=== PATIENT | male | born 1940 | race Caucasian/White ===

== ENCOUNTER 2018-03-29 10:18 | Emergency (ER) | payer MEDICARE, OTHER ==
[2018-03-29 10:58] VITALS: BMI 29.2
--- NOTE | 2018-03-29 11:03 | PDOC ---
History of Present Illness - General Chief Complaint: Wound Stated Complaint: Abscess Boil Time Seen by Provider: 03/29/18 10:59 History Source: Patient Exam Limitations: No Limitations - History of Present Illness Initial Comments: 77 yo m w a hx of Multiple Myeloma, parkinsonian features, urethral strictures, chronic renal failure and HTN presents to the ER [facility] from [facility] because of left gluteal buttock pain. He states that he has had an area of redness and swelling for the past 6 months but he came to the ER today because his PCP - Dr. Solano sent him here to have his abscess incised and drained. He states that he used to have more pain but now his pain has improved. He denies any fevers, chills, chest pain, SOB, diarrhea, constipation, headache , nausea, vomiting, blurry vision, abdominal pain, arm or leg pain, numbness, weakness, tingling or recent travel. PCP: Dr. Solano Oncologist: Dr. Ashraf PSH: None reported Social Hx: Smokes a few cigarettes per day, use to smoke more Allergies: NKA, NKDA Past History - Past Medical History Allergies/Adverse Reactions: Allergies Allergy/AdvReac Type Severity Reaction Status Date / Time No Known Allergies Allergy Verified 01/22/16 12:30 Home Medications: Ambulatory Orders Aspirin [Aspirin EC] 81 mg PO DAILY 01/16/16 Omeprazole 10 mg PO DAILY 01/16/16 Pramipexole Dihydrochloride [Mirapex -] 0.25 mg PO TID 01/22/16 Docusate Sodium [Colace -] 100 mg PO BID PRN #28 capsule 01/28/16 Acetaminophen 650 mg PO QID PRN 03/29/18 Amlodipine Besylate [Norvasc -] 10 mg PO DAILY 03/29/18 Carbidopa/Levodopa *Cr* 50/200 [Sinemet *Cr* 50/200 -] 1 combo PO TID 03/29/18 Clindamycin [Cleocin -] 450 mg PO Q6HPO #28 capsule 03/29/18 Cyanocobalamin Vit B-12 Inj. [Redisol] 1,000 mcg IM MONTHLY 03/29/18 Furosemide [Lasix -] 20 mg PO DAILY 03/29/18 Lenalidomide [Revlimid] 10 mg PO ASDIR 03/29/18 Multivitamin,Ther and Minerals [Vitamin and Minerals] 1 each PO DAILY 03/29/18 Rivastigmine Tartrate [Rivastigmine] 3 mg PO TID 03/29/18 Spironolactone [Aldactone] 25 mg PO DAILY 03/29/18 Valacyclovir HCl [Valtrex] 500 mg PO Q48H 03/29/18 Anemia: No Asthma: No Cancer: Yes (Multiple myeloma) Cardiac Disorders: No CVA: No COPD: Yes (?-ON INHALER-SMOKES 1 PPD) CHF: No Dementia: No Diabetes: No GI Disorders: No Disorders: No HTN: Yes (DX 05/2013) Hypercholesterolemia: No Liver Disease: No Seizures: No Thyroid Disease: No - Surgical History Abdominal Surgery: No Appendectomy: No Cardiac Surgery: No Cholecystectomy: No Lung Surgery: No Neurologic Surgery: No Orthopedic Surgery: No - Suicide/Smoking/Psychosocial Hx Smoking History: Never smoked Have you smoked in the past 12 months: No Number of Cigarettes Smoked Daily: 20 Information on smoking cessation initiated: No 'Breaking Loose' booklet given: 10/11/14 Hx Alcohol Use: No Drug/Substance Use Hx: No Substance Use Type: None Hx Substance Use Treatment: No Review of Systems - Review of Systems Able to Perform ROS?: Yes Comments:: CONSTITUTIONAL: Absent: fever, no chills, no fatigue EYES: Absent: visual changes ENT: Absent: ear pain, no sore throat CARDIOVASCULAR: Absent: chest pain, no palpitations RESPIRATORY: Absent: cough, no SOB GI: Absent: abdominal pain, no nausea, no vomiting, no constipation, no diarrhea GENITOURINARY: Absent: dysuria, no frequency, no hematuria MUSKULOSKELETAL: Absent: back pain, no arthralgia, no myalgia SKIN: Present: rash NEURO: Absent: headache *Physical Exam - Vital Signs Last Vital Signs Temp Pulse Resp BP Pulse Ox 97 F L 120 H 18 123/90 100 03/29/18 10:20 03/29/18 10:20 03/29/18 10:20 03/29/18 10:20 03/29/18 10:20 - Physical Exam Comments: GENERAL: Well-appearing, well-nourished. No apparent distress. HEENT: Normocephalic, atraumatic. PERRL, EOM intact. CARDIOVASCULAR: Normal S1, S2. Tachycardic rate and regular rhythm. PULMONARY: No evidence of respiratory distress. Lungs clear to auscultation bilaterally. No wheezing, rales or rhonchi. ABDOMEN: Soft, non-distended, non-tender. EXTREMITIES: Normal ROM in all four extremities. No gross deformities. BUTTOCKS: There is a 4x3 cm erythematous area on the left gluteal region that is TTP that is associated with induration, swelling, and fluctuance. SKIN: Warm, dry. No rash other than buttocks NEUROLOGICAL: No focal neurological deficits. Moderate Sedation - Procedure Monitoring Vital Signs: Procedure Monitoring Vital Signs Temperature 97 F L 03/29/18 10:20 Pulse Rate 120 H 03/29/18 10:20 Respiratory Rate 18 03/29/18 10:20 Blood Pressure 123/90 03/29/18 10:20 O2 Sat by Pulse Oximetry (%) 100 03/29/18 10:20 ED Treatment Course - LABORATORY CBC & Chemistry Diagram: 03/29/18 11:43 03/29/18 11:32 Medical Decision Making - Medical Decision Making 77 yo m w a hx of Multiple Myeloma, parkinsonian features, urethral strictures, chronic renal failure and HTN presents [facility] the ER [facility] from [facility] because of left gluteal buttock pain. He states that he has had an area of redness and swelling for the past 6 months but he came to the ER today because his PCP - Dr. Solano sent him here to have his abscess incised and drained. He states that he used to have more pain but now his pain has improved. VS: Tachycardic to 120, otherwise WNL DDx IBNLT: cellulitis, abscess, fistula, sepsis. Plan: ED adult sepsis workup -labs, urine, wound culture, I&D, Pelvis CT w contrast, re-assess - I spoke with Dr. Solano who simply wanted his abscess drained and then sent back to [facility]. Giving patient vancomycin in the ER for his cellulitis. - Will continue with clindamycin once he is out of the ER. I drained the abscess on his gluteal region of his butt and noticed that fecal matter was coming out. - Will obtain a pelvis CT with contrast to assess for fistula CTAP results: In comparison to a prior CT study of 01/25/2016 interval development of an approximately 3 x 2 cm thick-walled subcutaneous structure is seen suggestive of an abscess along the left buttock inferiorly. Within this structure is a small focus of air/gas. Adjacent subcutaneous edema is visualized. Within the adjacent subcutaneous edema more medially two additional punctate foci of air /gas are visualized. No definite fistulous tract is seen. Will DC patient with Abx, send back to [facility] and recommend a wound check in the next 48 hours. *DC/Admit/Observation/Transfer Diagnosis at time of Disposition: Abscess, Cellulitis - Discharge Dispostion Disposition: HOME Condition at time of disposition: Improved Decision to Admit order: No - Referrals Referrals: Alexander Solano MD [Primary Care Provider] - - Patient Instructions Printed Discharge Instructions: DI for Cellulitis -- Adult, DI for Anal Abscess Additional Instructions: You came into the ER with pain on your bottom. We did an incision and drainage procedure to remove the pus. We are sending an antibiotic - clindamycin - to your pharmacy for you to take for the next seven days. Please make sure to go and pick it up. It is very important for you to have your wound checked in the next 48 hours to make sure it is healing well. Come back to the ER if your pain worsens, you get a fever, have severe pain, or have any other new or worsening concerns. Thank you for coming to the [facility] ER. We hope you feel better soon! Print Language: SLOVENIAN - Post Discharge Activity
[2018-03-29 12:20] LABS: BASO % 1.4 % (0-2.0); EOS % 1.4 % (0-4.5); HEMOGLOBIN 10.6 GM/dL (11.7-16.9); LYMPH % 11.7 % (8-40); MCH 33.1 pg (25.7-33.7); MCHC 34.3 g/dl (32.0-35.9); MEAN CELL VOLUME 96.5 fl (80-96); MEAN PLT VOLUME 8.4 fl (7.5-11.1); MONO % 16.9 % (3.8-10.2); NEUT % 68.6 % (42.8-82.8); PLATELET COUNT 170 K/MM3 (134-434); RBC 3.21 M/mm3 (4.00-5.60); RDW 18.7 % (11.9-15.9); WHITE BLOOD COUNT 3.9 K/mm3 (4.0-10.0)
[2018-03-29 12:36] LABS: URINE APPEARANCE CLEAR; URINE BILIRUBIN NEGATIVE (<2.0 mg/dL); URINE COLOR LTYELLOW; URINE GLUCOSE (UA) NEGATIVE (NEGATIVE); URINE KETONE NEGATIVE (NEGATIVE); URINE LEUK ESTERASE 1+ (NEGATIVE); URINE NITRITE NEGATIVE (NEGATIVE); URINE PROTEIN NEGATIVE (NEGATIVE); URINE UROBILINOGEN NEGATIVE mg/dL (0.2-1.0)
[2018-03-29 12:36] LABS: ALBUMIN 2.9 g/dl (3.4-5.0); ALK PHOS 129 U/L (45-117); ANION GAP 5 MMOL/L (8-16); BILIRUBIN,TOTAL 0.3 mg/dL (0.2-1); BLOOD UREA NITROGEN 25 mg/dL (7-18); CALCIUM 8.5 mg/dL (8.5-10.1); CHLORIDE 102 mmol/L (98-107); CO2 28 mmol/L (21-32); CREATININE 1.8 mg/dL (0.55-1.3); GLUCOSE,RANDOM 103 mg/dL (74-106); POTASSIUM 4.9 mmol/L (3.5-5.1); SGOT/AST 11 U/L (15-37); SGPT/ALT 8 U/L (13-61); SODIUM 135 mmol/L (136-145); TOT PROT 6.5 g/dl (6.4-8.2)
[2018-03-29 12:41] LABS: INR 1.03 (0.83-1.09); PROTHROMBIN TIME (PATIENT) 12.1 SEC (9.7-13.0)
[2018-03-29 12:44] LABS: ACTIVATED PTT 28.2 SECONDS (25.2-36.5)
[2018-03-29] MEDS ORDERED: VANCOMYCIN 1,000 MG in DEXTROSE 5%-WATER - 250 ML IVPB ONE (12:53)
[2018-03-29] MEDS ORDERED: VANCOMYCIN 1 GRAM (PRE-DOCKED) 1,000 MG/250 ML BAG IVPB ONE (12:56)
[2018-03-29] MEDS ORDERED: LIDOCAINE HCL 2% (20ML MULTI-DOSE VIAL) NR ONE (12:56)
[2018-03-29] MEDS ORDERED: LIDOCAINE HCL 2% (50ML VIAL) SQ ONE (12:56)
[2018-03-29 12:57] LABS: EPI CELLS RARE /HPF (FEW); GRANULAR CASTS 7 /lpf; URINE MUCUS RARE
--- NOTE | 2018-03-29 12:58 | PDOC ---
Attending Attestation - Resident Resident Name: Guillaume Worthy - ED Attending Attestation I have performed the following: I have examined & evaluated the patient, The case was reviewed & discussed with the resident, I agree w/resident's findings & plan - HPI HPI: 03/29/18 12:54 77-year-old male from [facility] referred by Dr. Viveros for incision and drainage of left gluteal abscess/cellulitis. Patient has had a small skin lesion there for some time, more recently with increased discomfort. No systemic symptoms of fevers or chills, patient has not noted any discharge. - Physicial Exam PE: 03/29/18 12:54 Afebrile, triage heart rate noted currently 70 on examination Exam is within normal limits, patient is well-appearing Left gluteal superficial abscess in the mid buttock approximately 8 cm of induration with central 3-4 cm of fluctuance with active foul-smelling purulent drainage, no bleeding. Surrounding rim of cellulitis, the lesion is mobile without underlying palpable mass or deformity. - Medical Decision Making 03/29/18 12:56 77-year-old male from [facility] with left buttock abscess and cellulitis, no evidence of SIRS or sepsis. Check labs Dose of IV vancomycin Incision and drainage of abscess Discussed with Dr. Solano, who agrees with plan for I&D and transfer back to [facility] on antibiotics. Heart Score/ECG Review #1 ECG reviewed & interpreted by me at: 12:11 General ECG Interpretation: Sinus Rhythm, Normal Rate (65), Normal Intervals ( qtc 434), No acute ischemic changes
[2018-03-29] MEDS ORDERED: SODIUM CHLORIDE 0.9% 500 ML INFUS.BAG IV ONE (13:50)
--- NOTE | 2018-03-29 14:36 | EKG ---
Test Reason : Blood Pressure : / mmHG Vent. Rate : 065 BPM Atrial Rate : 065 BPM P-R Int : 144 ms QRS Dur : 088 ms QT Int : 418 ms P-R-T Axes : 055 -06 064 degrees QTc Int : 434 ms SINUS RHYTHM WITH MARKED SINUS ARRHYTHMIA WITH PREMATURE VENTRICULAR COMPLEXES LOW VOLTAGE QRS CANNOT RULE OUT ANTERIOR INFARCT , AGE UNDETERMINED ABNORMAL ECG WHEN COMPARED WITH ECG OF 22-JAN-2016 16:02, PREMATURE VENTRICULAR COMPLEXES ARE NOW PRESENT PREMATURE ATRIAL COMPLEXES ARE NO LONGER PRESENT Confirmed by SHRUTHI FANG MD ([id number]) on 03/29/2018 2:36:15 PM Referred By: Confirmed By:SHRUTHI FANG MD
[2018-03-29 18:24] VITALS: BP 144/74; PULSE 88; TEMP 98
== END 2018-03-29 18:24 ==
LOC: JER 10:18
PROC: 0J990ZZ Drainage of Buttock Subcutaneous Tissue and Fascia, Open Approach (ICD-10-PCS; principal; 2018-03-29)
PROC: 3E03329 Introduction of Other Anti-infective into Peripheral Vein, Percutaneous Approach (ICD-10-PCS; 2018-03-29)
PROC: 3E013BZ Introduction of Anesthetic Agent into Subcutaneous Tissue, Percutaneous Approach (ICD-10-PCS; 2018-03-29)
DX: L02.31 Cutaneous abscess of buttock (principal); I12.9 Hypertensive chronic kidney disease with stage 1 through stage 4 chronic kidney disease, or unspecified chronic kidney disease; F17.210 Nicotine dependence, cigarettes, uncomplicated; N18.9 Chronic kidney disease, unspecified; G20 Parkinson's disease; Z85.79 Personal history of other malignant neoplasms of lymphoid, hematopoietic and related tissues; J44.9 Chronic obstructive pulmonary disease, unspecified
CPT/HCPCS: 10160; 36415; 72193-TC; 80053; 81003; 81015; 83605; 84484; 85025; 85610; 85730; 86850; 86900; 86901; 87040; 87070; 87076; 87077; 87086; 87205; 93005; 93010; 96365; 96366; 96372; 99284-25

== ENCOUNTER 2018-10-20 14:25 | Inpatient (IN) | payer OTHER ==
[2018-10-20 14:29] VITALS: BMI 22.7
--- NOTE | 2018-10-20 14:32 | PDOC ---
Rapid Medical Evaluation Chief Complaint: Abnormal Lab Results (Outside) Time Seen by Provider: 10/20/18 14:29 Medical Evaluation: Allergies Allergy/AdvReac Type Severity Reaction Status Date / Time No Known Allergies Allergy Verified 10/20/18 14:29 Vital Signs Temp Pulse Resp BP Pulse Ox 98.0 F 68 16 109/43 L 97 10/20/18 14:27 10/20/18 14:27 10/20/18 14:27 10/20/18 14:27 10/20/18 14:27 10/20/18 14:36 I have performed a brief in-person evaluation of this patient. The patient presents with a chief complaint of: Pertinent physical exam findings:stable and in NAD, non-focal I have ordered the following:labs, ekg The patient will proceed to the ED for further evaluation. Discharge Disposition - Referrals Referrals: Alexander Solano MD [Primary Care Provider] - - Patient Instructions - Post Discharge Activity
--- NOTE | 2018-10-20 16:28 | PDOC ---
History of Present Illness - General Chief Complaint: Abnormal Lab Results (Outside) Stated Complaint: SENT BY PCP Time Seen by Provider: 10/20/18 14:29 History Source: Patient Exam Limitations: No Limitations - History of Present Illness Initial Comments: 77 yo m w a hx of Multiple Myeloma, parkinsonian features, urethral strictures, chronic renal failure and HTN [facility] sent by his PCP - Dr. Solano to be admitted and evaluated for renal failure. Patient denies having any complaints. Denies having any pain or discomfort at the present time. He denies any fevers, chills, chest pain, SOB, diarrhea, constipation, headache , nausea, vomiting, blurry vision, abdominal pain, arm or leg pain, numbness, weakness, tingling or recent travel. PCP: Dr. Solano Oncologist: Dr. Ashraf PSH: None reported Social Hx: Smokes a few cigarettes per day, use to smoke more. [facility] resident, walks with a walker Allergies: NKA, NKDA Past History - Past Medical History Allergies/Adverse Reactions: Allergies Allergy/AdvReac Type Severity Reaction Status Date / Time No Known Allergies Allergy Verified 10/20/18 14:29 Home Medications: Ambulatory Orders Aspirin [Aspirin EC] 81 mg PO DAILY 01/16/16 Omeprazole 10 mg PO DAILY 01/16/16 Pramipexole Dihydrochloride [Mirapex -] 0.25 mg PO TID 01/22/16 Docusate Sodium [Colace -] 100 mg PO BID PRN #28 capsule 01/28/16 Acetaminophen 650 mg PO QID PRN 03/29/18 Amlodipine Besylate [Norvasc -] 10 mg PO DAILY 03/29/18 Carbidopa/Levodopa *Cr* 50/200 [Sinemet *Cr* 50/200 -] 1 combo PO TID 03/29/18 Clindamycin [Cleocin -] 450 mg PO Q6HPO #28 capsule 03/29/18 Cyanocobalamin Vit B-12 Inj. [Redisol] 1,000 mcg IM MONTHLY 03/29/18 Furosemide [Lasix -] 20 mg PO DAILY 03/29/18 Lenalidomide [Revlimid] 10 mg PO ASDIR 03/29/18 Multivitamin,Ther and Minerals [Vitamin and Minerals] 1 each PO DAILY 03/29/18 Rivastigmine Tartrate [Rivastigmine] 3 mg PO TID 03/29/18 Spironolactone [Aldactone] 25 mg PO DAILY 03/29/18 Valacyclovir HCl [Valtrex] 500 mg PO Q48H 03/29/18 Anemia: No Asthma: No Cancer: Yes (Multiple myeloma) Cardiac Disorders: No CVA: No COPD: Yes (?-ON INHALER-SMOKES 1 PPD) CHF: No Dementia: No Diabetes: No GI Disorders: No Disorders: No HTN: Yes (DX 05/2013) Hypercholesterolemia: No Liver Disease: No Seizures: No Thyroid Disease: No - Surgical History Abdominal Surgery: No Appendectomy: No Cardiac Surgery: No Cholecystectomy: No Lung Surgery: No Neurologic Surgery: No Orthopedic Surgery: No - Suicide/Smoking/Psychosocial Hx Smoking History: Current some day smoker Have you smoked in the past 12 months: No Number of Cigarettes Smoked Daily: 1 Information on smoking cessation initiated: No 'Breaking Loose' booklet given: 10/11/14 Hx Alcohol Use: No Drug/Substance Use Hx: No Substance Use Type: None Hx Substance Use Treatment: No Review of Systems - Review of Systems Able to Perform ROS?: Yes Comments:: CONSTITUTIONAL: Absent: fever, no chills, no fatigue EYES: Absent: visual changes ENT: Absent: ear pain, no sore throat CARDIOVASCULAR: Absent: chest pain, no palpitations RESPIRATORY: Absent: cough, no SOB GI: Absent: abdominal pain, no nausea, no vomiting, no constipation, no diarrhea GENITOURINARY: Absent: dysuria, no frequency, no hematuria MUSKULOSKELETAL: Absent: back pain, no arthralgia, no myalgia SKIN: Present: Rash NEURO: Absent: headache *Physical Exam - Vital Signs Last Vital Signs Temp Pulse Resp BP Pulse Ox 98.0 F 68 16 109/43 L 97 10/20/18 14:27 10/20/18 14:27 10/20/18 14:27 10/20/18 14:27 10/20/18 14:27 - Physical Exam Comments: GENERAL: Well-appearing, well-nourished. No apparent distress. HEENT: Normocephalic, atraumatic. PERRL, EOM intact. CARDIOVASCULAR: Normal S1, S2. Regular rate and rhythm. PULMONARY: There are bibasilar crackles. No evidence of respiratory distress. ABDOMEN: Soft, non-distended, non-tender. EXTREMITIES: limited ROM in lower extremities. No gross deformities. SKIN: There are multiple echymosis from prior blood draws. Warm, dry. NEUROLOGICAL: No focal neurological deficits. ED Treatment Course - LABORATORY CBC & Chemistry Diagram: 10/21/18 06:45 10/21/18 06:45 - RADIOLOGY Radiograph Interpretation: CXR: Chest: Cough A single view of the chest reveals well expanded lung christiansen with no sign of infiltrate or failure , prominent heart, sclerotic knob and prominent adelaida. After sharp. The soft tissues are intact. There are degenerative changes. An acute process is not seen. Renal US: Renal ultrasound Clinical information: acute kidney injury There is no hydronephrosis. The renal cortices bilaterally demonstrate increased echogenicity suggestive of medical nephropathy. There is mild diffuse bilateral renal cortical atrophy. The kidneys appear unremarkable in size each measuring approximately 10.4 cm in length. Apparent no obvious calculus or mass lesion is identified within the limitations of sonography. Incidental 2 cm right renal cortical cyst. There is no obvious perirenal fluid collection. Impression: No hydronephrosis is seen. Findings are noted suggestive of medical renal disease as discussed above. Medical Decision Making - Medical Decision Making 77 yo m w a hx of Multiple Myeloma, parkinsonian features, urethral strictures, chronic renal failure and HTN presents to the ER [facility] from the [facility] sent by his PCP - Dr. Solano to be admitted and evaluated for renal failure. Patient denies having any complaints. Denies having any pain or discomfort at the present time. He denies any fevers, chills, chest pain, SOB, diarrhea, constipation, headache , nausea, vomiting, blurry vision, abdominal pain, arm or leg pain, numbness, weakness, tingling or recent travel. Vital Signs Temp Pulse Resp BP Pulse Ox 98.0 F 68 16 109/43 L 97 10/20/18 14:27 10/20/18 14:27 10/20/18 14:27 10/20/18 14:27 10/20/18 14:27 - Hypotensive diastolicly DDx IBNLT: MM exacerbation, REMIGIO, electrolyte/metabolic disturbance, UTI/Pylo, drug toxicity MDM: Patient sent in by PCP for renal failure. Will obtain urine lytes to calculate FeNa, obtain renal consult, and admit to hospital. Plan: Labs, urine, cxr, renal consult, admit to hospital. Labs: Supports REMIGIO as well as elevated BUN, mildly low Sodium - FeNA: 0.5% - suggests pre-renal injury Urine: Shows patient has a UTI - Will treat with ceftriaxone CXR: Chest: Cough A single view of the chest reveals well expanded lung christiansen with no sign of infiltrate or failure , prominent heart, sclerotic knob and prominent adelaida. After sharp. The soft tissues are intact. There are degenerative changes. An acute process is not seen. Renal US: Renal ultrasound Clinical information: acute kidney injury There is no hydronephrosis. The renal cortices bilaterally demonstrate increased echogenicity suggestive of medical nephropathy. There is mild diffuse bilateral renal cortical atrophy. The kidneys appear unremarkable in size each measuring approximately 10.4 cm in length. Apparent no obvious calculus or mass lesion is identified within the limitations of sonography. Incidental 2 cm right renal cortical cyst. There is no obvious perirenal fluid collection. Impression: No hydronephrosis is seen. Findings are noted suggestive of medical renal disease as discussed above. Renal Consult - [facility]: Recommends Renal US and hydration with 75/hr of NS Disposition: Admit to hospital for renal injury 10/21/18 19:02 *DC/Admit/Observation/Transfer Diagnosis at time of Disposition: Renal insufficiency - Discharge Dispostion Condition at time of disposition: Stable Decision to Admit order: Yes - Referrals - Patient Instructions - Post Discharge Activity
[2018-10-20 17:26] LABS: EPI CELLS 0.8 /HPF (0-5/HPF); HYALINE CASTS 4 /lpf (0-8); URINE APPEARANCE CLOUDY; URINE BACTERIA 4838.1 /hpf (NEGATIVE); URINE BILIRUBIN NEGATIVE (NEGATIVE); URINE COLOR YELLOW; URINE GLUCOSE (UA) NEGATIVE (NEGATIVE); URINE KETONE NEGATIVE (NEGATIVE); URINE LEUK ESTERASE 3+ (NEGATIVE); URINE NITRITE POSITIVE (NEGATIVE); URINE PROTEIN 1+ (NEGATIVE); URINE RBC 1 /hpf (0-4); URINE WBC 118 /hpf (0-5)
[2018-10-20] MEDS ORDERED: SODIUM CHLORIDE 0.9% 500 ML INFUS.BAG IV ONE (17:29)
[2018-10-20] MEDS ORDERED: CEFTRIAXONE 1,000 MG in DEXTROSE 5%-WATER - 50 ML IVPB ONE (17:30)
[2018-10-20 17:33] LABS: ALBUMIN 2.9 g/dl (3.4-5.0); ALK PHOS 147 U/L (45-117); ANION GAP 8 MMOL/L (8-16); BILIRUBIN,TOTAL 0.4 mg/dL (0.2-1); BLOOD UREA NITROGEN 38.6 mg/dL (7-18); CALCIUM 8.7 mg/dL (8.5-10.1); CHLORIDE 97 mmol/L (98-107); CO2 27 mmol/L (21-32); CREATININE 2.1 mg/dL (0.55-1.3); GLUCOSE,RANDOM 85 mg/dL (74-106); POTASSIUM 5.1 mmol/L (3.5-5.1); SGOT/AST 20 U/L (15-37); SGPT/ALT 8 U/L (13-61); SODIUM 132 mmol/L (136-145); TOT PROT 6.3 g/dl (6.4-8.2)
[2018-10-20 17:48] LABS: BASO % 0.5 % (0-2.0); HEMOGLOBIN 8.8 GM/dL (11.7-16.9); LYMPH % 7.8 % (8-40); MCH 32.3 pg (25.7-33.7); MCHC 32.4 g/dl (32.0-35.9); MEAN CELL VOLUME 99.6 fl (80-96); MEAN PLT VOLUME 10.3 fl (7.5-11.1); MONO % 14.5 % (3.8-10.2); NEUT % 71.2 % (42.8-82.8); PLATELET COUNT 101 K/MM3 (134-434); RBC 2.72 M/mm3 (4.00-5.60); RDW 19.1 % (11.9-15.9); WHITE BLOOD COUNT 3.1 K/mm3 (4.0-10.0)
--- NOTE | 2018-10-20 17:53 | PDOC ---
Attending Attestation - Resident Resident Name: Guillaume Worthy - ED Attending Attestation I have performed the following: I have examined & evaluated the patient, The case was reviewed & discussed with the resident, I agree w/resident's findings & plan, Exceptions are as noted - HPI HPI: 10/20/18 17:46 agree with resident HPI - Physicial Exam PE: 10/20/18 17:46 agree with resident exam - Medical Decision Making 10/20/18 17:47 77yo M presents to the ED for admission for renal failure by Dr. Solano Pt asymptomatic here with unremarkable vitals and exam Pt with outpt creatinine in mid 2s on outpt labs +UTI, will cover with ceftriaxone Creatinine here 2.1, remaining labs pending Dr. Ashraf called in, case discussed, she will see pt tomorrow Anticipate admission
[2018-10-20 18:21] LABS: INR 0.94 (0.83-1.09); N-TERMINAL BNP 915.8 pg/ml (5-450); PROTHROMBIN TIME (PATIENT) 11.1 SEC (9.7-13.0)
[2018-10-20 18:23] LABS: ACTIVATED PTT 28.4 SECONDS (25.2-36.5)
[2018-10-20] MEDS ORDERED: CEFTRIAXONE 1 GM/50 ML BAG ONE (18:45)
[2018-10-20 19:23] LABS: PLATELET ESTIMATE DECREASED
--- NOTE | 2018-10-20 19:50 | HP ---
Admitting History and Physical - Primary Care Physician PCP: Alexander Solano ([facility]) - Admission Chief Complaint: Abnormal Lab Values History of Present Illness: This is a 77 y/o man from [facility] with a PMHx of Multiple Myeloma, Parkinson 's Disease, Urethral Strictures, Chronic Renal Failure, HTN, COPD, RLS. Who presents to the ED for worsening renal function. Patient is alert to name and place, unable to provide HPI. Patient denies fever, chills, cough, SOB, dizziness, URIBE, CP, palpitations, AP, N/V/D, constipation, dysuria History Source: Transfer Record Limitations to Obtaining History: Clinical Condition - Past Medical History VIRTUAL ASSISTANT: Yes: Parkinson's Cardiovascular: Yes: HTN Pulmonary: Yes: COPD, Other (copd) Renal/: Yes: Renal Failure - Advance Directives Advance Directives: Yes: DNR (DNI) - Smoking History Smoking history: Current some day smoker Have you smoked in the past 12 months: No Aproximately how many cigarettes per day: 1 - Alcohol/Substance Use Hx Alcohol Use: No History of Substance Use: reports: None - Social History Usual Living Arrangement: Yes: Longterm ADL: Support Services History of Recent Travel: No Home Medications - Allergies Allergies/Adverse Reactions: Allergies Allergy/AdvReac Type Severity Reaction Status Date / Time No Known Allergies Allergy Verified 10/20/18 14:29 - Home Medications Home Medications: Ambulatory Orders Aspirin [Aspirin EC] 81 mg PO DAILY 01/16/16 Omeprazole 10 mg PO DAILY 01/16/16 Pramipexole Dihydrochloride [Mirapex -] 0.25 mg PO TID 01/22/16 Docusate Sodium [Colace -] 100 mg PO BID PRN #28 capsule 01/28/16 Acetaminophen 650 mg PO QID PRN 03/29/18 Amlodipine Besylate [Norvasc -] 10 mg PO DAILY 03/29/18 Carbidopa/Levodopa *Cr* 50/200 [Sinemet *Cr* 50/200 -] 1 combo PO TID 03/29/18 Clindamycin [Cleocin -] 450 mg PO Q6HPO #28 capsule 03/29/18 Cyanocobalamin Vit B-12 Inj. [Redisol] 1,000 mcg IM MONTHLY 03/29/18 Furosemide [Lasix -] 20 mg PO DAILY 03/29/18 Lenalidomide [Revlimid] 10 mg PO ASDIR 03/29/18 Multivitamin,Ther and Minerals [Vitamin and Minerals] 1 each PO DAILY 03/29/18 Rivastigmine Tartrate [Rivastigmine] 3 mg PO TID 03/29/18 Spironolactone [Aldactone] 25 mg PO DAILY 03/29/18 Valacyclovir HCl [Valtrex] 500 mg PO Q48H 03/29/18 Home Medications (free text): Norvasc 10mg po QD Family Disease History - Family Disease History Family History: Unable to Obtain Review of Systems - Review of Systems Constitutional: reports: No Symptoms Eyes: reports: No Symptoms HENT: reports: No Symptoms Neck: reports: No Symptoms Cardiovascular: reports: No Symptoms Respiratory: reports: No Symptoms Gastrointestinal: reports: No Symptoms Genitourinary: reports: No Symptoms Breasts: reports: No Symptoms Reported Musculoskeletal: reports: No Symptoms Integumentary: reports: No Symptoms Neurological: reports: No Symptoms Endocrine: reports: No Symptoms Hematology/Lymphatic: reports: No Symptoms Psychiatric: reports: No Symptoms Pain Intensity: 0 Physical Examination Vital Signs: Vital Signs Temperature 98.0 F 10/20/18 14:27 Pulse Rate 68 10/20/18 14:27 Respiratory Rate 16 10/20/18 14:27 Blood Pressure 109/43 L 10/20/18 14:27 O2 Sat by Pulse Oximetry (%) 97 10/20/18 14:27 Constitutional: Yes: No Distress, Calm Eyes: Yes: Conjunctiva Clear, EOM Intact, PERRL HENT: Yes: WNL, Atraumatic, Normocephalic Neck: Yes: WNL, Supple, Trachea Midline Cardiovascular: Yes: WNL, Regular Rate and Rhythm, S1, S2 Respiratory: Yes: WNL, Regular, CTA Bilaterally Gastrointestinal: Yes: WNL, Normal Bowel Sounds, Soft ...Rectal Exam: Yes: Deferred Renal/: Yes: WNL Breast(s): Yes: WNL Musculoskeletal: Yes: WNL Extremities: Yes: WNL Edema: No Peripheral Pulses WNL: Yes Neurological: Yes: Alert (name and place), Confusion, Cran Nerves II-XII Intact ...Motor Strength: WNL Psychiatric: Yes: WNL, Alert Labs: CBC, BMP 10/20/18 14:47 10/20/18 17:10 Laboratory Results - last 24 hr 10/20/18 10/20/18 10/20/18 14:47 15:10 15:10 WBC 3.1 L RBC 2.72 L Hgb 8.8 L Hct 27.0 L MCV 99.6 H MCH 32.3 MCHC 32.4 RDW 19.1 H Plt Count 101 L D MPV 10.3 D Absolute Neuts (auto) 2.2 Neutrophils % 71.2 Neutrophils % (Manual) 74.5 Band Neutrophils % 0.0 Lymphocytes % 7.8 L D Lymphocytes % (Manual) 7.2 L Monocytes % 14.5 H Monocytes % (Manual) 11 H Eosinophils % 6.0 H D Eosinophils % (Manual) 5.1 H Basophils % 0.5 Basophils % (Manual) 0.0 Myelocytes % (Man) 1 Promyelocytes % (Man) 0 Blast Cells % (Manual) 0 Nucleated RBC % 0 Metamyelocytes 1 Platelet Estimate Decreased Platelet Comment No clumping noted PT with INR INR PTT (Actin FS) Sodium Potassium Chloride Carbon Dioxide Anion Gap BUN Creatinine Est GFR (CKD-EPI)AfAm Est GFR (CKD-EPI)NonAf Random Glucose Calcium Total Bilirubin AST ALT Alkaline Phosphatase Troponin I B-Natriuretic Peptide Total Protein Albumin Urine Color Urine Appearance Urine pH Ur Specific [place] Urine Protein Urine Glucose (UA) Urine Ketones Urine Blood Urine Nitrite Urine Bilirubin Urine Urobilinogen Ur Leukocyte Esterase Urine WBC (Auto) Urine RBC (Auto) Urine Casts (Auto) U Epithel Cells (Auto) Urine Bacteria (Auto) Ur Random Creatinine 49.0 Ur Random Sodium 16 L 10/20/18 10/20/18 10/20/18 15:10 17:10 17:10 WBC RBC Hgb Hct MCV MCH MCHC RDW Plt Count MPV Absolute Neuts (auto) Neutrophils % Neutrophils % (Manual) Band Neutrophils % Lymphocytes % Lymphocytes % (Manual) Monocytes % Monocytes % (Manual) Eosinophils % Eosinophils % (Manual) Basophils % Basophils % (Manual) Myelocytes % (Man) Promyelocytes % (Man) Blast Cells % (Manual) Nucleated RBC % Metamyelocytes Platelet Estimate Platelet Comment PT with INR 11.10 INR 0.94 PTT (Actin FS) 28.4 Sodium 132 L Potassium 5.1 Chloride 97 L Carbon Dioxide 27 Anion Gap 8 BUN 38.6 H Creatinine 2.1 H Est GFR (CKD-EPI)AfAm 33.92 Est GFR (CKD-EPI)NonAf 29.27 Random Glucose 85 Calcium 8.7 Total Bilirubin 0.4 AST 20 ALT 8 L Alkaline Phosphatase 147 H Troponin I < 0.02 B-Natriuretic Peptide 915.8 H Total Protein 6.3 L Albumin 2.9 L Urine Color Yellow Urine Appearance Cloudy Urine pH 8.0 D Ur Specific [place] 1.011 Urine Protein 1+ H Urine Glucose (UA) Negative Urine Ketones Negative Urine Blood Negative Urine Nitrite Positive H Urine Bilirubin Negative Urine Urobilinogen 1.0 Ur Leukocyte Esterase 3+ H Urine WBC (Auto) 118 Urine RBC (Auto) 1 Urine Casts (Auto) 4 U Epithel Cells (Auto) 0.8 Urine Bacteria (Auto) 4838.1 Ur Random Creatinine Ur Random Sodium Intake & Output 10/18/18 10/19/18 10/20/18 10/21/18 23:59 23:59 23:59 23:59 Intake Total 0 Balance 0 Weight 63.049 kg Current Medications Generic Name Dose Route Start Last Admin Trade Name Freq PRN Reason Stop Dose Admin Carbidopa/Levodopa 1 combo 10/20/18 22:00 10/21/18 00:31 Sinemet *Cr* 50/200 - PO 1 combo TID NICHOL Administration Docusate Sodium 100 mg 10/20/18 19:58 Colace - PO BID PRN CONSTIPATION Sodium Chloride 1,000 mls @ 75 mls/hr 10/20/18 18:45 10/20/18 20:20 Normal Saline - IV 75 mls/hr ASDIR NICHOL Administration Ceftriaxone Sodium 1 gm/ 50 mls @ 100 mls/hr 10/21/18 10:00 Dextrose IVPB DAILY NICHOL Protocol Imaging - Results Chest X-ray: Image Reviewed Ultrasound: Image Reviewed Other: Image Reviewed Problem List - Problems (1) Renal failure (ARF), acute on chronic Assessment/Plan: Likely secondary to UTI Cr 2.1 baseline (0.7-6) Appreciate Nephrology consult NS bolus given in ED Continue IVF per Nephrology recommendations Monitor BMP Urine random Na 16 Urine random Cr 49 Renal US report- no hydronephrosis, findings suggestive of medical renal disease Avoid Nephrotoxic drugs Monitor vitals Code(s): N17.9 - ACUTE KIDNEY FAILURE, UNSPECIFIED; N18.9 - CHRONIC KIDNEY DISEASE, UNSPECIFIED (2) COPD (chronic obstructive pulmonary disease) Assessment/Plan: Stable Continue Duonebs Continue home meds Peak Flow Chest Xray image reviewed O2 Code(s): J44.9 - CHRONIC OBSTRUCTIVE PULMONARY DISEASE, UNSPECIFIED (3) HTN (hypertension) Assessment/Plan: Stable Continue Norvasc Monitor renal function Code(s): I10 - ESSENTIAL (PRIMARY) HYPERTENSION (4) Multiple myeloma Assessment/Plan: PET Scan reviewed Appreciate Oncology consult Monitor CBC Code(s): C90.00 - MULTIPLE MYELOMA NOT HAVING ACHIEVED REMISSION Assessment/Plan This is a 77 y/o man with a PMHx of Multiple Myeloma, Parkinson's Disease, Urethral Strictures, Chronic Renal Failure, HTN, COPD, RLS. Admitted for Acute on Chronic Renal Failure for further evaluation of their emergent condition. Plan: See Above FEN NS@75ml/hr Replete lytes prn Low Na Diet DVT ppx OOB SCDs Heparin SQ Dispo: Requires Inpatient Care Visit type - Emergency Visit Emergency Visit: Yes ED Registration Date: 10/20/18 Care time: The patient presented to the Emergency Department on the above date and was hospitalized for further evaluation of their emergent condition. - New Patient This patient is new to me today: Yes Date on this admission: 10/20/18 - Critical Care Critical Care patient: No
[2018-10-20] MEDS ORDERED: DOCUSATE SODIUM 100 MG CAPSULE (FP) PO PRN (19:58)
[2018-10-20] MEDS: SODIUM CHLORIDE 1,000 ML IV SCH (20:20)
[2018-10-21 08:25] LABS: BASO % 0.6 % (0-2.0); EOS % 7.3 % (0-4.5); HEMATOCRIT 24.1 % (35.4-49); LYMPH % 9.6 % (8-40); MCH 32.7 pg (25.7-33.7); MEAN CELL VOLUME 98.9 fl (80-96); MEAN PLT VOLUME 10.1 fl (7.5-11.1); MONO % 15.6 % (3.8-10.2); NEUT % 66.9 % (42.8-82.8); PLATELET COUNT 80 K/MM3 (134-434); RBC 2.44 M/mm3 (4.00-5.60); RDW 19.4 % (11.9-15.9)
[2018-10-21 08:26] LABS: ALBUMIN 2.4 g/dl (3.4-5.0); ALK PHOS 130 U/L (45-117); ANION GAP 12 MMOL/L (8-16); BILIRUBIN,TOTAL 0.3 mg/dL (0.2-1); CALCIUM 8.1 mg/dL (8.5-10.1); CHLORIDE 104 mmol/L (98-107); CO2 25 mmol/L (21-32); CREATININE 1.9 mg/dL (0.55-1.3); GLUCOSE,RANDOM 80 mg/dL (74-106); POTASSIUM 4.2 mmol/L (3.5-5.1); SGOT/AST 8 U/L (15-37); SGPT/ALT < 6 U/L (13-61); SODIUM 140 mmol/L (136-145); TOT PROT 5.4 g/dl (6.4-8.2)
--- NOTE | 2018-10-21 08:51 | PN ---
Progress Note, Physician Chief Complaint: 76 Y.O M [facility] RESIDENT WITH HISTORY OF RELAPSING MM WAS SENT TO THE THE ER [facility] BY DR GEIGER DUE TO ARF. HIS CREAT WAS 3.1 ON 10/18/18 AT [facility] BUT AFTER ARRIVAL TO [facility] REPEATED CREATININE WAS 2.1 TODAY AM CREATININE IS BACK TO 1.9 WHICH IS THE BASELINE OF HIS KIDNEY FUNCTION. RECENTLY PATIENT'S ANTIHYPERTENSIVE MEDS WERE DE-ESCALATED DUE TO EPISODES OF LOW BP. History of Present Illness: MM ON REVLIMID BUT RECENTLY INCREASING SPEP/IF/LC. PANCYTOPENIA RECENT PET/CT SHOWED NEW C7 HYPERMETABOLIC LESION, ACTIVITY IN BOWEL, LUNGS. COPD WITH RECENT EXACERBATION STILL SMOKES PARKINSON'S DEMENTIA HTN, EKG WITH FREQUENT APC/VPC CKD 3 REPEATED FALLS - Current Medication List Current Medications: Active Medications Albuterol/Ipratropium (Duoneb -) 1 amp NEB RQID NICHOL Carbidopa/Levodopa (Sinemet *Cr* 50/200 -) 1 combo PO TID COUNT INCLUDES THE [facility] Last Admin: 10/21/18 06:23 Dose: 1 combo Docusate Sodium (Colace -) 100 mg PO BID PRN PRN Reason: CONSTIPATION Sodium Chloride (Normal Saline -) 1,000 mls @ 75 mls/hr IV ASDIR COUNT INCLUDES THE [facility] Last Admin: 10/20/18 20:20 Dose: 75 mls/hr Ceftriaxone Sodium 1 gm/ (Dextrose) 50 mls @ 100 mls/hr IVPB DAILY COUNT INCLUDES THE [facility]; Protocol - Objective Vital Signs: Vital Signs Temperature 97.8 F 10/21/18 06:26 Pulse Rate 75 10/21/18 06:26 Respiratory Rate 20 10/21/18 06:26 Blood Pressure 104/46 L 10/21/18 06:26 O2 Sat by Pulse Oximetry (%) 95 10/21/18 03:56 Constitutional: Yes: No Distress, Calm Eyes: Yes: Conjunctiva Clear, EOM Intact HENT: Yes: Atraumatic, Normocephalic. No: Drooling Neck: Yes: Supple, Trachea Midline Cardiovascular: Yes: Regular Rate and Rhythm. No: Bradycardia, Tachycardia Respiratory: Yes: Rhonchi, SOB on Exertion Gastrointestinal: Yes: Normal Bowel Sounds, Soft, Abdomen, Obese ...Rectal Exam: Yes: Deferred Genitourinary: No: Anuria, Bladder Distention Breast(s): Yes: WNL Musculoskeletal: Yes: WNL Extremities: Yes: WNL Edema: No Peripheral Pulses WNL: Yes Integumentary: Yes: WNL Neurological: Yes: Alert, Oriented. No: Aphasia, Dysarthria ...Motor Strength: WNL Psychiatric: Yes: WNL Labs: CBC, BMP 10/21/18 06:45 INR, PTT INR 0.94 (0.83-1.09) 10/20/18 17:10 Laboratory Results - last 24 hr 10/20/18 10/20/18 10/20/18 14:47 15:10 15:10 WBC 3.1 L RBC 2.72 L Hgb 8.8 L Hct 27.0 L MCV 99.6 H MCH 32.3 MCHC 32.4 RDW 19.1 H Plt Count 101 L D MPV 10.3 D Absolute Neuts (auto) 2.2 Neutrophils % 71.2 Neutrophils % (Manual) 74.5 Band Neutrophils % 0.0 Lymphocytes % 7.8 L D Lymphocytes % (Manual) 7.2 L Monocytes % 14.5 H Monocytes % (Manual) 11 H Eosinophils % 6.0 H D Eosinophils % (Manual) 5.1 H Basophils % 0.5 Basophils % (Manual) 0.0 Myelocytes % (Man) 1 Promyelocytes % (Man) 0 Blast Cells % (Manual) 0 Nucleated RBC % 0 Metamyelocytes 1 Platelet Estimate Decreased Platelet Comment No clumping noted PT with INR INR PTT (Actin FS) Sodium Potassium Chloride Carbon Dioxide Anion Gap BUN Creatinine Est GFR (CKD-EPI)AfAm Est GFR (CKD-EPI)NonAf Random Glucose Calcium Total Bilirubin AST ALT Alkaline Phosphatase Troponin I B-Natriuretic Peptide Total Protein Albumin Urine Color Urine Appearance Urine pH Ur Specific [place] Urine Protein Urine Glucose (UA) Urine Ketones Urine Blood Urine Nitrite Urine Bilirubin Urine Urobilinogen Ur Leukocyte Esterase Urine WBC (Auto) Urine RBC (Auto) Urine Casts (Auto) U Epithel Cells (Auto) Urine Bacteria (Auto) Ur Random Creatinine 49.0 Ur Random Sodium 16 L 10/20/18 10/20/18 10/20/18 15:10 17:10 17:10 WBC RBC Hgb Hct MCV MCH MCHC RDW Plt Count MPV Absolute Neuts (auto) Neutrophils % Neutrophils % (Manual) Band Neutrophils % Lymphocytes % Lymphocytes % (Manual) Monocytes % Monocytes % (Manual) Eosinophils % Eosinophils % (Manual) Basophils % Basophils % (Manual) Myelocytes % (Man) Promyelocytes % (Man) Blast Cells % (Manual) Nucleated RBC % Metamyelocytes Platelet Estimate Platelet Comment PT with INR 11.10 INR 0.94 PTT (Actin FS) 28.4 Sodium 132 L Potassium 5.1 Chloride 97 L Carbon Dioxide 27 Anion Gap 8 BUN 38.6 H Creatinine 2.1 H Est GFR (CKD-EPI)AfAm 33.92 Est GFR (CKD-EPI)NonAf 29.27 Random Glucose 85 Calcium 8.7 Total Bilirubin 0.4 AST 20 ALT 8 L Alkaline Phosphatase 147 H Troponin I < 0.02 B-Natriuretic Peptide 915.8 H Total Protein 6.3 L Albumin 2.9 L Urine Color Yellow Urine Appearance Cloudy Urine pH 8.0 D Ur Specific [place] 1.011 Urine Protein 1+ H Urine Glucose (UA) Negative Urine Ketones Negative Urine Blood Negative Urine Nitrite Positive H Urine Bilirubin Negative Urine Urobilinogen 1.0 Ur Leukocyte Esterase 3+ H Urine WBC (Auto) 118 Urine RBC (Auto) 1 Urine Casts (Auto) 4 U Epithel Cells (Auto) 0.8 Urine Bacteria (Auto) 4838.1 Ur Random Creatinine Ur Random Sodium 10/21/18 06:45 WBC RBC Hgb Hct MCV MCH MCHC RDW Plt Count MPV Absolute Neuts (auto) Neutrophils % Neutrophils % (Manual) Band Neutrophils % Lymphocytes % Lymphocytes % (Manual) Monocytes % Monocytes % (Manual) Eosinophils % Eosinophils % (Manual) Basophils % Basophils % (Manual) Myelocytes % (Man) Promyelocytes % (Man) Blast Cells % (Manual) Nucleated RBC % Metamyelocytes Platelet Estimate Platelet Comment PT with INR INR PTT (Actin FS) Sodium 140 Potassium 4.2 Chloride 104 Carbon Dioxide 25 Anion Gap 12 BUN 33.0 H Creatinine 1.9 H Est GFR (CKD-EPI)AfAm 38.28 Est GFR (CKD-EPI)NonAf 33.03 Random Glucose 80 Calcium 8.1 L Total Bilirubin 0.3 AST 8 L ALT < 6 L Alkaline Phosphatase 130 H Troponin I B-Natriuretic Peptide Total Protein 5.4 L Albumin 2.4 L Urine Color Urine Appearance Urine pH Ur Specific [place] Urine Protein Urine Glucose (UA) Urine Ketones Urine Blood Urine Nitrite Urine Bilirubin Urine Urobilinogen Ur Leukocyte Esterase Urine WBC (Auto) Urine RBC (Auto) Urine Casts (Auto) U Epithel Cells (Auto) Urine Bacteria (Auto) Ur Random Creatinine Ur Random Sodium Problem List - Problems (1) COPD (chronic obstructive pulmonary disease) Assessment/Plan: CONTINUE DUONEBS Code(s): J44.9 - CHRONIC OBSTRUCTIVE PULMONARY DISEASE, UNSPECIFIED Qualifiers: COPD type: emphysema (2) Acute renal insufficiency Assessment/Plan: ELVIS ON CKD APPEARS RELATED TO PRE-RENAL INSUFFICIENCY AND RESOLVED EPISODES OF LOW BP LESS LIKELY MM INJURY TO KIDNEY GIVEN QUICK IMPROVEMENT. WILL REPEAT LABS IN AM NEPHROLOGY CONSULT Code(s): N28.9 - DISORDER OF KIDNEY AND URETER, UNSPECIFIED (3) Multiple myeloma Assessment/Plan: ONCOLOGY FOLLOW UP MRI C 7 RECOMMENDED BY PET/CT ESCALATING ANTI-MYELOMA TREATMENT POSSIBLY INCLUDING MONOCLONAL ANTIBODY CONTAINING REGIMENS. Code(s): C90.00 - MULTIPLE MYELOMA NOT HAVING ACHIEVED REMISSION Qualifiers: Multiple myeloma remission status: not in remission Qualified Code(s): C90.00 - Multiple myeloma not having achieved remission (4) UTI (urinary tract infection) Assessment/Plan: uRINE CULTURE-PENDING CEFTRIAXONE STARTED. Code(s): N39.0 - URINARY TRACT INFECTION, SITE NOT SPECIFIED Qualifiers: Urinary tract infection type: site unspecified (5) HTN (hypertension) Assessment/Plan: CONTROLLED NOW OFF BP MEDS Code(s): I10 - ESSENTIAL (PRIMARY) HYPERTENSION Qualifiers: Hypertension type: essential hypertension Qualified Code(s): I10 - Essential (primary) hypertension
[2018-10-21] MEDS ORDERED: DEXTROSE 5%-WATER - 50 ML IVPB ONE (08:54)
[2018-10-21] MEDS ORDERED: cefTRIAXone SODIUM 1 GM VIAL ONE (08:54)
[2018-10-21] MEDS: CEFTRIAXONE 1 GM in DEXTROSE 5%-WATER - 50 ML IVPB SCH (10:04)
--- NOTE | 2018-10-21 11:00 | CONSULT ---
Consultation: CONSULT SERVICE: Nephrology Resident (Dr. Munson) HISTORY OF PRESENT ILLNESS: 77yo M with h/o multiple myeloma, HTN, CKD Stage 3, COPD who initially presented from Dr. Ashraf's office due to elevated Cr. We were asked to medically evaluate this patient as a result of his decreased kidney function and mild hyponatremia. Currently patient has no complaints at this time. In Ed pt was given IVF and treated with Rocephin due to a UTI. Pt's Cr has improved is back to his baseline. PMHx:As above PSHx:Denies SoHx: Tobacco - Current smoker Alcohol - Denies Illicit drugs - Denies Lives in NH with assist support; son involved in care REVIEW OF SYSTEMS: As per HPI PHYSICAL EXAMINATION Vital Signs - 24 hr 10/20/18 10/20/18 10/21/18 14:27 22:30 01:50 Temperature 98.0 F 98.2 F 98.5 F Pulse Rate 68 83 80 Respiratory 16 20 18 Rate Blood Pressure 109/43 L 112/53 L 129/75 O2 Sat by Pulse 97 95 Oximetry (%) 10/21/18 10/21/18 10/21/18 03:00 03:56 06:26 Temperature 97.7 F 97.8 F Pulse Rate 65 75 Respiratory 18 18 20 Rate Blood Pressure 119/78 104/46 L O2 Sat by Pulse 95 Oximetry (%) GENERAL: Frail appearing, Awake, alert, and fully oriented, in no acute distress. HEENT: NC/AT, ILANA, slight pallor noted, MMM NECK: No JVD LUNGS: CTA bilaterally. No wheezes, and no crackles. No accessory muscle use. HEART: RRR, normal S1 and S2 without murmur ABDOMEN: Soft, nontender, tympanitic, slightly distended, normoactive bowel sounds, no guarding, no masses. : Urinal at bedside with yellow-clear urine MUSCULOSKELETAL: No CVA tenderness. XTREMITIES: 2+ DP pulses, warm, well-perfused. No calf tenderness. No peripheral edema. PSYCHIATRIC: Cooperative. Good eye contact. Appropriate mood and affect. SKIN: Warm, dry, no rashes Laboratory Results - last 24 hr 10/20/18 10/20/18 10/20/18 14:47 15:10 15:10 WBC 3.1 L RBC 2.72 L Hgb 8.8 L Hct 27.0 L MCV 99.6 H MCH 32.3 MCHC 32.4 RDW 19.1 H Plt Count 101 L D MPV 10.3 D Absolute Neuts (auto) 2.2 Neutrophils % 71.2 Neutrophils % (Manual) 74.5 Band Neutrophils % 0.0 Lymphocytes % 7.8 L D Lymphocytes % (Manual) 7.2 L Monocytes % 14.5 H Monocytes % (Manual) 11 H Eosinophils % 6.0 H D Eosinophils % (Manual) 5.1 H Basophils % 0.5 Basophils % (Manual) 0.0 Myelocytes % (Man) 1 Promyelocytes % (Man) 0 Blast Cells % (Manual) 0 Nucleated RBC % 0 Metamyelocytes 1 Platelet Estimate Decreased Platelet Comment No clumping noted PT with INR INR PTT (Actin FS) Sodium Potassium Chloride Carbon Dioxide Anion Gap BUN Creatinine Est GFR (CKD-EPI)AfAm Est GFR (CKD-EPI)NonAf Random Glucose Calcium Total Bilirubin AST ALT Alkaline Phosphatase Troponin I B-Natriuretic Peptide Total Protein Albumin Urine Color Urine Appearance Urine pH Ur Specific [place] Urine Protein Urine Glucose (UA) Urine Ketones Urine Blood Urine Nitrite Urine Bilirubin Urine Urobilinogen Ur Leukocyte Esterase Urine WBC (Auto) Urine RBC (Auto) Urine Casts (Auto) U Epithel Cells (Auto) Urine Bacteria (Auto) Ur Random Creatinine 49.0 Ur Random Sodium 16 L 10/20/18 10/20/18 10/20/18 15:10 17:10 17:10 WBC RBC Hgb Hct MCV MCH MCHC RDW Plt Count MPV Absolute Neuts (auto) Neutrophils % Neutrophils % (Manual) Band Neutrophils % Lymphocytes % Lymphocytes % (Manual) Monocytes % Monocytes % (Manual) Eosinophils % Eosinophils % (Manual) Basophils % Basophils % (Manual) Myelocytes % (Man) Promyelocytes % (Man) Blast Cells % (Manual) Nucleated RBC % Metamyelocytes Platelet Estimate Platelet Comment PT with INR 11.10 INR 0.94 PTT (Actin FS) 28.4 Sodium 132 L Potassium 5.1 Chloride 97 L Carbon Dioxide 27 Anion Gap 8 BUN 38.6 H Creatinine 2.1 H Est GFR (CKD-EPI)AfAm 33.92 Est GFR (CKD-EPI)NonAf 29.27 Random Glucose 85 Calcium 8.7 Total Bilirubin 0.4 AST 20 ALT 8 L Alkaline Phosphatase 147 H Troponin I < 0.02 B-Natriuretic Peptide 915.8 H Total Protein 6.3 L Albumin 2.9 L Urine Color Yellow Urine Appearance Cloudy Urine pH 8.0 D Ur Specific [place] 1.011 Urine Protein 1+ H Urine Glucose (UA) Negative Urine Ketones Negative Urine Blood Negative Urine Nitrite Positive H Urine Bilirubin Negative Urine Urobilinogen 1.0 Ur Leukocyte Esterase 3+ H Urine WBC (Auto) 118 Urine RBC (Auto) 1 Urine Casts (Auto) 4 U Epithel Cells (Auto) 0.8 Urine Bacteria (Auto) 4838.1 Ur Random Creatinine Ur Random Sodium 10/21/18 10/21/18 06:45 06:45 WBC 2.0 L RBC 2.44 L Hgb 8.0 L Hct 24.1 L MCV 98.9 H MCH 32.7 MCHC 33.0 RDW 19.4 H Plt Count 80 L D MPV 10.1 Absolute Neuts (auto) 1.3 L Neutrophils % 66.9 Neutrophils % (Manual) Band Neutrophils % Lymphocytes % 9.6 D Lymphocytes % (Manual) Monocytes % 15.6 H Monocytes % (Manual) Eosinophils % 7.3 H Eosinophils % (Manual) Basophils % 0.6 Basophils % (Manual) Myelocytes % (Man) Promyelocytes % (Man) Blast Cells % (Manual) Nucleated RBC % 0 Metamyelocytes Platelet Estimate Platelet Comment PT with INR INR PTT (Actin FS) Sodium 140 Potassium 4.2 Chloride 104 Carbon Dioxide 25 Anion Gap 12 BUN 33.0 H Creatinine 1.9 H Est GFR (CKD-EPI)AfAm 38.28 Est GFR (CKD-EPI)NonAf 33.03 Random Glucose 80 Calcium 8.1 L Total Bilirubin 0.3 AST 8 L ALT < 6 L Alkaline Phosphatase 130 H Troponin I B-Natriuretic Peptide Total Protein 5.4 L Albumin 2.4 L Urine Color Urine Appearance Urine pH Ur Specific [place] Urine Protein Urine Glucose (UA) Urine Ketones Urine Blood Urine Nitrite Urine Bilirubin Urine Urobilinogen Ur Leukocyte Esterase Urine WBC (Auto) Urine RBC (Auto) Urine Casts (Auto) U Epithel Cells (Auto) Urine Bacteria (Auto) Ur Random Creatinine Ur Random Sodium Active Medications Generic Name Dose Route Start Last Admin Trade Name Freq PRN Reason Stop Dose Admin Albuterol/Ipratropium 1 amp 10/21/18 12:00 Duoneb - NEB RQID NICHOL Carbidopa/Levodopa 1 combo 10/20/18 22:00 10/21/18 06:23 Sinemet *Cr* 50/200 - PO 1 combo TID NICHOL Administration Docusate Sodium 100 mg 10/20/18 19:58 Colace - PO BID PRN CONSTIPATION Sodium Chloride 1,000 mls @ 75 mls/hr 10/20/18 18:45 10/20/18 20:20 Normal Saline - IV 75 mls/hr ASDIR NICHOL Administration Ceftriaxone Sodium 1 gm/ 50 mls @ 100 mls/hr 10/21/18 10:00 10/21/18 10:04 Dextrose IVPB 100 mls/hr DAILY NICHOL Administration Protocol ASSESSMENT/PLAN: Prerenal azotemia Multiple myeloma CKD stage 3 COPD --Fluid responsive back to Cr baseline for patient --Due to acute nature of Creatinine flux highly doubt worsening MM/amyloidosis injury to kidneys --Monitor Cr --Avoid nephrotoxic agents --Encourage PO intake and IVF PRN --Continue UTI treatment per primary team Rest per primary and oncological teams Case discussed with Dr. Jeimy Cowan, DO - IM PGY-3 Visit type - Emergency Visit Emergency Visit: Yes ED Registration Date: 10/21/18 Care time: The patient presented to the Emergency Department on the above date and was hospitalized for further evaluation of their emergent condition. - New Patient This patient is new to me today: Yes Date on this admission: 10/21/18 - Critical Care Critical Care patient: No
--- NOTE | 2018-10-21 11:38 | CONSULT ---
Consultation: REQUESTING PROVIDER: Dr. Solano CONSULT REQUEST: We have been asked to medically evaluate this patient for multiple myeloma HISTORY OF PRESENT ILLNESS: Pleasant 77 year old male with a history of multiple myeloma, parkinson's disease, hypertension, COPD, RLS presented to the hospital from [facility] for worsened renal function tests. Patient reports no current distress and denies any complaints. Son at bedside states that Mr. Carey has not had an appetite nor an adequate fluid intake. He has been treated for multiple myeloma with myeloma kidney (baseline cre 1.9) by Dr. Ashraf. On revlimid in the office. We are consulted for worsening renal function in the setting of multiple myeloma. Recently patient had a PET/CT which revealed a questionable lesion in C7. REVIEW OF SYSTEMS: CONSTITUTIONAL: Absent: fever, chills, diaphoresis, generalized weakness, malaise, loss of appetite, weight change HEENT: Absent: rhinorrhea, nasal congestion, throat pain, throat swelling, difficulty swallowing, mouth swelling, ear pain, eye pain, visual changes CARDIOVASCULAR: Absent: chest pain, syncope, palpitations, irregular heart rate, lightheadedness , peripheral edema RESPIRATORY: Absent: cough, shortness of breath, dyspnea with exertion, orthopnea, wheezing, stridor, hemoptysis GASTROINTESTINAL: Absent: abdominal pain, abdominal distension, nausea, vomiting, diarrhea, constipation, melena, hematochezia GENITOURINARY: Absent: dysuria, frequency, urgency, hesitancy, hematuria, flank pain, genital pain MUSCULOSKELETAL: Absent: myalgia, arthralgia, joint swelling, back pain, neck pain SKIN: Absent: rash, itching, pallor HEMATOLOGIC/IMMUNOLOGIC: Absent: easy bleeding, easy bruising, lymphadenopathy, frequent infections ENDOCRINE: Absent: unexplained weight gain, unexplained weight loss, heat intolerance, cold intolerance NEUROLOGIC: Absent: headache, focal weakness or paresthesias, dizziness, unsteady gait, seizure, mental status changes, bladder or bowel incontinence PSYCHIATRIC: Absent: anxiety, depression, suicidal or homicidal ideation, hallucinations. PHYSICAL EXAMINATION Vital Signs - 24 hr 10/20/18 10/20/18 10/21/18 14:27 22:30 01:50 Temperature 98.0 F 98.2 F 98.5 F Pulse Rate 68 83 80 Respiratory 16 20 18 Rate Blood Pressure 109/43 L 112/53 L 129/75 O2 Sat by Pulse 97 95 Oximetry (%) 09/05/19 09/05/19 09/05/19 03:00 03:56 06:26 Temperature 97.7 F 97.8 F Pulse Rate 65 75 Respiratory 18 18 20 Rate Blood Pressure 119/78 104/46 L O2 Sat by Pulse 95 Oximetry (%) GENERAL: A&Ox3, no acute distress EYES: PERRLA, EOMI ENT: Moist mucus membranes NECK: No JVD LUNGS: CTA, no wheezes HEART: RRR, no murmurs ABDOMEN: Soft, nontender, BS present MUSCULOSKELETAL: No CVA Tenderness EXTREMITIES: 2+ pulses, no edema. NEUROLOGICAL: Cranial nerves II-XII intact. Laboratory Results - last 24 hr 10/20/18 10/20/18 10/20/18 14:47 15:10 15:10 WBC 3.1 L RBC 2.72 L Hgb 8.8 L Hct 27.0 L MCV 99.6 H MCH 32.3 MCHC 32.4 RDW 19.1 H Plt Count 101 L D MPV 10.3 D Absolute Neuts (auto) 2.2 Neutrophils % 71.2 Neutrophils % (Manual) 74.5 Band Neutrophils % 0.0 Lymphocytes % 7.8 L D Lymphocytes % (Manual) 7.2 L Monocytes % 14.5 H Monocytes % (Manual) 11 H Eosinophils % 6.0 H D Eosinophils % (Manual) 5.1 H Basophils % 0.5 Basophils % (Manual) 0.0 Myelocytes % (Man) 1 Promyelocytes % (Man) 0 Blast Cells % (Manual) 0 Nucleated RBC % 0 Metamyelocytes 1 Platelet Estimate Decreased Platelet Comment No clumping noted PT with INR INR PTT (Actin FS) Sodium Potassium Chloride Carbon Dioxide Anion Gap BUN Creatinine Est GFR (CKD-EPI)AfAm Est GFR (CKD-EPI)NonAf Random Glucose Calcium Total Bilirubin AST ALT Alkaline Phosphatase Troponin I B-Natriuretic Peptide Total Protein Albumin Urine Color Urine Appearance Urine pH Ur Specific [place] Urine Protein Urine Glucose (UA) Urine Ketones Urine Blood Urine Nitrite Urine Bilirubin Urine Urobilinogen Ur Leukocyte Esterase Urine WBC (Auto) Urine RBC (Auto) Urine Casts (Auto) U Epithel Cells (Auto) Urine Bacteria (Auto) Ur Random Creatinine 49.0 Ur Random Sodium 16 L 10/20/18 10/20/18 10/20/18 15:10 17:10 17:10 WBC RBC Hgb Hct MCV MCH MCHC RDW Plt Count MPV Absolute Neuts (auto) Neutrophils % Neutrophils % (Manual) Band Neutrophils % Lymphocytes % Lymphocytes % (Manual) Monocytes % Monocytes % (Manual) Eosinophils % Eosinophils % (Manual) Basophils % Basophils % (Manual) Myelocytes % (Man) Promyelocytes % (Man) Blast Cells % (Manual) Nucleated RBC % Metamyelocytes Platelet Estimate Platelet Comment PT with INR 11.10 INR 0.94 PTT (Actin FS) 28.4 Sodium 132 L Potassium 5.1 Chloride 97 L Carbon Dioxide 27 Anion Gap 8 BUN 38.6 H Creatinine 2.1 H Est GFR (CKD-EPI)AfAm 33.92 Est GFR (CKD-EPI)NonAf 29.27 Random Glucose 85 Calcium 8.7 Total Bilirubin 0.4 AST 20 ALT 8 L Alkaline Phosphatase 147 H Troponin I < 0.02 B-Natriuretic Peptide 915.8 H Total Protein 6.3 L Albumin 2.9 L Urine Color Yellow Urine Appearance Cloudy Urine pH 8.0 D Ur Specific [place] 1.011 Urine Protein 1+ H Urine Glucose (UA) Negative Urine Ketones Negative Urine Blood Negative Urine Nitrite Positive H Urine Bilirubin Negative Urine Urobilinogen 1.0 Ur Leukocyte Esterase 3+ H Urine WBC (Auto) 118 Urine RBC (Auto) 1 Urine Casts (Auto) 4 U Epithel Cells (Auto) 0.8 Urine Bacteria (Auto) 4838.1 Ur Random Creatinine Ur Random Sodium 10/21/18 10/21/18 06:45 06:45 WBC 2.0 L RBC 2.44 L Hgb 8.0 L Hct 24.1 L MCV 98.9 H MCH 32.7 MCHC 33.0 RDW 19.4 H Plt Count 80 L D MPV 10.1 Absolute Neuts (auto) 1.3 L Neutrophils % 66.9 Neutrophils % (Manual) Band Neutrophils % Lymphocytes % 9.6 D Lymphocytes % (Manual) Monocytes % 15.6 H Monocytes % (Manual) Eosinophils % 7.3 H Eosinophils % (Manual) Basophils % 0.6 Basophils % (Manual) Myelocytes % (Man) Promyelocytes % (Man) Blast Cells % (Manual) Nucleated RBC % 0 Metamyelocytes Platelet Estimate Platelet Comment PT with INR INR PTT (Actin FS) Sodium 140 Potassium 4.2 Chloride 104 Carbon Dioxide 25 Anion Gap 12 BUN 33.0 H Creatinine 1.9 H Est GFR (CKD-EPI)AfAm 38.28 Est GFR (CKD-EPI)NonAf 33.03 Random Glucose 80 Calcium 8.1 L Total Bilirubin 0.3 AST 8 L ALT < 6 L Alkaline Phosphatase 130 H Troponin I B-Natriuretic Peptide Total Protein 5.4 L Albumin 2.4 L Urine Color Urine Appearance Urine pH Ur Specific [place] Urine Protein Urine Glucose (UA) Urine Ketones Urine Blood Urine Nitrite Urine Bilirubin Urine Urobilinogen Ur Leukocyte Esterase Urine WBC (Auto) Urine RBC (Auto) Urine Casts (Auto) U Epithel Cells (Auto) Urine Bacteria (Auto) Ur Random Creatinine Ur Random Sodium Active Medications Generic Name Dose Route Start Last Admin Trade Name Freq PRN Reason Stop Dose Admin Albuterol/Ipratropium 1 amp 10/21/18 12:00 Duoneb - NEB RQID NICHOL Carbidopa/Levodopa 1 combo 10/20/18 22:00 10/21/18 06:23 Sinemet *Cr* 50/200 - PO 1 combo TID NICHOL Administration Docusate Sodium 100 mg 10/20/18 19:58 Colace - PO BID PRN CONSTIPATION Sodium Chloride 1,000 mls @ 75 mls/hr 10/20/18 18:45 10/20/18 20:20 Normal Saline - IV 75 mls/hr ASDIR NICHOL Administration Ceftriaxone Sodium 1 gm/ 50 mls @ 100 mls/hr 10/21/18 10:00 10/21/18 10:04 Dextrose IVPB 100 mls/hr DAILY NICHOL Administration Protocol ASSESSMENT/PLAN: 77 year old male with a history of multiple myeloma, parkinson's disease, hypertension, COPD, RLS presented to the hospital from [facility] for worsened renal function tests. Patient reports no current distress and denies any complaints. #Multiple Myeloma #Acute Renal Failure #Multiple Myeloma: on revlimid -will get serum free light chains to assess free kappa to lambda ratio for progression -currently on revlimid -MRI of C spine to evaluate C7 lesion #Acute Renal Failure: likely 2/2 poor hydration, resolved -renal US negative for hydro Delfino Malik D.O., PGY-[address] Ashraf ATTENDING PHYSICIAN STATEMENT I saw and evaluated the patient. I reviewed the resident's note and discussed the case with the resident. I agree with the resident's findings and plan as documented. SUBJECTIVE: OBJECTIVE: ASSESSMENT AND PLAN:
[2018-10-21 12:18] LABS: ANISOCYTOSIS 1+; MACROCYTOSIS 1+; OVALOCYTE 1+; PLATELET ESTIMATE DECREASED
--- NOTE | 2018-10-21 12:27 | EKG ---
Test Reason : Blood Pressure : / mmHG Vent. Rate : 069 BPM Atrial Rate : 069 BPM P-R Int : 144 ms QRS Dur : 088 ms QT Int : 430 ms P-R-T Axes : 041 -08 063 degrees QTc Int : 460 ms POOR DATA QUALITY, INTERPRETATION MAY BE ADVERSELY AFFECTED SINUS RHYTHM WITH MARKED SINUS ARRHYTHMIA LOW VOLTAGE QRS BORDERLINE ECG WHEN COMPARED WITH ECG OF 29-MAR-2018 12:11, PREMATURE VENTRICULAR COMPLEXES ARE NO LONGER PRESENT Confirmed by ALICIA NUNN MD ([id number]) on 10/21/2018 12:26:45 PM Referred By: Confirmed By:ALICIA NUNN MD
[2018-10-21] MEDS: ALBUTEROL SO4 2.5/IPRATROPIUM 0.5 INH SOL 3 ML VIAL.NEB. NEB SCH ×3 (13:00→20:39)
[2018-10-21] MEDS: SODIUM CHLORIDE 1,000 ML IV SCH ×2 (13:42→20:37)
--- NOTE | 2018-10-21 16:34 | PN ---
Teaching Attending Note Name of Resident: Delfino Cowan (Nephrology) ATTENDING PHYSICIAN STATEMENT I saw and evaluated the patient. I reviewed the resident's note and discussed the case with the resident. I agree with the resident's findings and plan as documented. Renal Pt is a 77 year old male with pmhx of ckd and myeloma who was sent in for elevated creatinine. He was found to have a UTI. He says that he feels better today. He denies shortness of breath. pmhx ckd uti htn multiple myeloma nkda social hx denies fam hx non contrib Laboratory Tests 10/20/18 10/20/18 10/21/18 15:10 17:10 06:45 Creatinine 2.1 H 1.9 H Urine Nitrite Positive H Urine Urobilinogen 1.0 Free [place] LC, Quant Free Lambda LC, Quant Free [place]/Lambda Ratio 10/21/18 06:45 Creatinine Urine Nitrite Urine Urobilinogen Free [place] LC, Quant Pending Free Lambda LC, Quant Pending Free [place]/Lambda Ratio Pending Current Medications Generic Name Dose Route Start Last Admin Trade Name Freq PRN Reason Stop Dose Admin Albuterol/Ipratropium 1 amp 10/21/18 12:00 10/21/18 13:00 Duoneb - NEB Not Given RQID NICHOL Carbidopa/Levodopa 1 combo 10/20/18 22:00 10/21/18 13:43 Sinemet *Cr* 50/200 - PO 1 combo TID NICHOL Administration Docusate Sodium 100 mg 10/20/18 19:58 Colace - PO BID PRN CONSTIPATION Sodium Chloride 1,000 mls @ 75 mls/hr 10/20/18 18:45 10/21/18 13:42 Normal Saline - IV 75 mls/hr ASDIR NICHOL Administration Ceftriaxone Sodium 1 gm/ 50 mls @ 100 mls/hr 10/21/18 10:00 10/21/18 10:04 Dextrose IVPB 100 mls/hr DAILY NICHOL Administration Protocol Impression 1. ckd 2. UTI 3. HTN 4. cataract 5. urinary obstruction/strictures 6. multiple myeloma Plan - renal function is improving - cont fluids - follow cultures - cont abx - discussed with resident
[2018-10-21] MEDS ORDERED: PT OWN MED DRAWER 7, Y5N ONE (20:19)
--- NOTE | 2018-10-21 23:19 | PN ---
Teaching Attending Note Name of Resident: Delfino Malik ATTENDING PHYSICIAN STATEMENT I saw and evaluated the patient. I reviewed the resident's note and discussed the case with the resident. I agree with the resident's findings and plan as documented. ASSESSMENT AND PLAN: 77 y/o patient with myeloma, parkinsons disease, HTN, CHF, admitted with worsening renal function/UTI. Diuretics on hold recent PET-CT-- indeterminate C6 lesion, dependent lung changes, ascending colon polyp will check MRI C spine check SFLCA IF myeloma progressing will consider switching to daratumumab
[2018-10-22] MEDS: ALBUTEROL SO4 2.5/IPRATROPIUM 0.5 INH SOL 3 ML VIAL.NEB. NEB SCH ×3 (07:45→15:58)
[2018-10-22 08:01] LABS: ALBUMIN 2.2 g/dl (3.4-5.0); ALK PHOS 115 U/L (45-117); ANION GAP 7 MMOL/L (8-16); BILIRUBIN,TOTAL 0.2 mg/dL (0.2-1); BLOOD UREA NITROGEN 22.8 mg/dL (7-18); CHLORIDE 111 mmol/L (98-107); CO2 24 mmol/L (21-32); CREATININE 1.6 mg/dL (0.55-1.3); GLUCOSE,RANDOM 90 mg/dL (74-106); POTASSIUM 3.9 mmol/L (3.5-5.1); SGOT/AST 7 U/L (15-37); SGPT/ALT < 6 U/L (13-61); SODIUM 141 mmol/L (136-145); TOT PROT 4.9 g/dl (6.4-8.2)
--- NOTE | 2018-10-22 09:03 | PN ---
Progress Note (short form) - Note Progress Note: Feels well, no complaints Dr Ashraf consult read and greatly appreciated. Kidney function significantly improved and remain stable. C-spine MRI is planned for C 7 lesion and will arrange as outpatient. Will follow up with Isrrael Ashraf re further MM treatment. Patient is not a candidate for HCT due to age and performance satus, DRd or DVd will be determined by oncology during f/u Will follow Plan D/c to [facility] MRI C-spine as outptBMP, CBC as outpatient. PE Urine culture negative to date. Vital Signs Temp 97.7 F 10/22/18 06:00 Pulse 68 10/22/18 06:00 Resp 16 10/22/18 06:00 BP 117/50 L 10/22/18 06:00 Pulse Ox 95 10/22/18 06:00 Intake & Output 10/21/18 10/21/18 10/22/18 11:59 23:59 11:59 Intake Total 250 830 300 Balance 250 830 300 Intake: IV 0 300 Normal Saline - 1,000 ml 300 @ 75 mls/hr IV ASDIR NICHOL Rx#:[id number] saline lock 0 Oral 250 530 300 Other: Voiding Method Urinal Urinal Urinal Bowel Movement No No Neck supple, no JVD Lungs B/l rhonchi Heart S1s2 regular Abdomen obese, no HSM Ext no CCE Laboratory Results - last 24 hr 10/21/18 10/22/18 06:45 06:45 WBC 2.0 L RBC 2.44 L Hgb 8.0 L Hct 24.1 L MCV 98.9 H MCH 32.7 MCHC 33.0 RDW 19.4 H Plt Count 80 L D MPV 10.1 Absolute Neuts (auto) 1.3 L Neutrophils % 66.9 Neutrophils % (Manual) 71.0 Band Neutrophils % 4.0 Lymphocytes % 9.6 D Lymphocytes % (Manual) 17.0 D Monocytes % 15.6 H Monocytes % (Manual) 5 Eosinophils % 7.3 H Eosinophils % (Manual) 3.0 Basophils % 0.6 Basophils % (Manual) 0.0 Myelocytes % (Man) 0 D Promyelocytes % (Man) 0 Blast Cells % (Manual) 0 Nucleated RBC % 0 Metamyelocytes 0 D Hypochromia 0 Platelet Estimate Decreased Platelet Comment Large platelets Polychromasia 0 Poikilocytosis 1+ Anisocytosis 1+ Microcytosis 0 Macrocytosis 1+ Ovalocytes 1+ Sodium 141 Potassium 3.9 Chloride 111 H Carbon Dioxide 24 Anion Gap 7 L BUN 22.8 H Creatinine 1.6 H Est GFR (CKD-EPI)AfAm 47.12 Est GFR (CKD-EPI)NonAf 40.66 Random Glucose 90 Calcium 8.0 L Total Bilirubin 0.2 AST 7 L ALT < 6 L Alkaline Phosphatase 115 Total Protein 4.9 L Albumin 2.2 L Current Active Problems Problem Status Onset COPD (chronic obstructive pulmonary disease) Acute Renal insufficiency Acute UTI (urinary tract infection) Acute Plan D/C to [facility] MRI C-spine as outpatient discussed with the patient Avoid hypotension Maintain proper hydration. Received 3 days of Ceftriaxone IV Will follow UA, C/C Light chains were sent, pending Problem List - Problems (1) COPD (chronic obstructive pulmonary disease) Code(s): J44.9 - CHRONIC OBSTRUCTIVE PULMONARY DISEASE, UNSPECIFIED Qualifiers: COPD type: emphysema (2) Acute renal insufficiency Code(s): N28.9 - DISORDER OF KIDNEY AND URETER, UNSPECIFIED (3) Multiple myeloma Code(s): C90.00 - MULTIPLE MYELOMA NOT HAVING ACHIEVED REMISSION Qualifiers: Multiple myeloma remission status: not in remission Qualified Code(s): C90.00 - Multiple myeloma not having achieved remission (4) UTI (urinary tract infection) Code(s): N39.0 - URINARY TRACT INFECTION, SITE NOT SPECIFIED Qualifiers: Urinary tract infection type: site unspecified (5) HTN (hypertension) Code(s): I10 - ESSENTIAL (PRIMARY) HYPERTENSION Qualifiers: Hypertension type: essential hypertension Qualified Code(s): I10 - Essential (primary) hypertension
[2018-10-22] MEDS ORDERED: cefTRIAXone SODIUM 1 GM VIAL ONE (09:14)
[2018-10-22] MEDS ORDERED: DEXTROSE 5%-WATER - 50 ML IVPB ONE (09:14)
--- NOTE | 2018-10-22 09:14 | DS ---
Physical Examination Vital Signs: Vital Signs Temperature 97.7 F 10/22/18 06:00 Pulse Rate 68 10/22/18 06:00 Respiratory Rate 16 10/22/18 06:00 Blood Pressure 117/50 L 10/22/18 06:00 O2 Sat by Pulse Oximetry (%) 95 10/22/18 06:00 Constitutional: Yes: No Distress, Calm Eyes: Yes: Conjunctiva Clear, EOM Intact HENT: Yes: Atraumatic, Normocephalic Neck: Yes: Supple, Trachea Midline Cardiovascular: Yes: Regular Rate and Rhythm Respiratory: Yes: Regular, CTA Bilaterally, Rhonchi, SOB on Exertion Gastrointestinal: Yes: Normal Bowel Sounds, Soft ...Rectal Exam: Yes: Deferred Renal/: No: Anuria Breast(s): Yes: WNL Musculoskeletal: Yes: WNL Edema: No Integumentary: Yes: WNL Neurological: Yes: Alert, Oriented ...Motor Strength: WNL Psychiatric: Yes: WNL Labs: CBC, BMP 10/21/18 06:45 10/22/18 06:45 Discharge Summary Reason For Visit: RENAL INSUFFICENCY, MULTIPLE MYELOMA Current Active Problems COPD (chronic obstructive pulmonary disease) (Acute) Renal insufficiency (Acute) UTI (urinary tract infection) (Acute) Condition: Stable - Instructions Disposition: CUSTODIAL FACILITY - Home Medications Comprehensive Discharge Medication List: Ambulatory Orders Aspirin [Aspirin EC] 81 mg PO DAILY 01/16/16 Omeprazole 10 mg PO DAILY 01/16/16 Pramipexole Dihydrochloride [Mirapex -] 0.25 mg PO TID 01/22/16 Docusate Sodium [Colace -] 100 mg PO BID PRN #28 capsule 01/28/16 Acetaminophen 650 mg PO QID PRN 03/29/18 Amlodipine Besylate [Norvasc -] 10 mg PO DAILY 03/29/18 Carbidopa/Levodopa *Cr* 50/200 [Sinemet *Cr* 50/200 -] 1 combo PO TID 03/29/18 Clindamycin [Cleocin -] 450 mg PO Q6HPO #28 capsule 03/29/18 Cyanocobalamin Vit B-12 Inj. [Redisol] 1,000 mcg IM MONTHLY 03/29/18 Furosemide [Lasix -] 20 mg PO DAILY 03/29/18 Lenalidomide [Revlimid] 10 mg PO ASDIR 03/29/18 Multivitamin,Ther and Minerals [Vitamin and Minerals] 1 each PO DAILY 03/29/18 Rivastigmine Tartrate [Rivastigmine] 3 mg PO TID 03/29/18 Spironolactone [Aldactone] 25 mg PO DAILY 03/29/18 Valacyclovir HCl [Valtrex] 500 mg PO Q48H 03/29/18
[2018-10-22] MEDS: CEFTRIAXONE 1 GM in DEXTROSE 5%-WATER - 50 ML IVPB SCH (09:38)
[2018-10-22 14:06] VITALS: PULSE 83
--- NOTE | 2018-10-22 15:15 | PN ---
Progress Note, Physician History of Present Illness: Pt seen and examined at bedside. He is awake and alert. He denies shortness of breath. He denies fevers or chills. - Current Medication List Current Medications: Active Medications Albuterol/Ipratropium (Duoneb -) 1 amp NEB RQID NICHOL Last Admin: 10/22/18 11:40 Dose: 1 amp Carbidopa/Levodopa (Sinemet *Cr* 50/200 -) 1 combo PO TID NICHOL Last Admin: 10/22/18 05:00 Dose: 1 combo Docusate Sodium (Colace -) 100 mg PO BID PRN PRN Reason: CONSTIPATION Sodium Chloride (Normal Saline -) 1,000 mls @ 75 mls/hr IV ASDIR NICHOL Last Admin: 10/21/18 20:37 Dose: Not Given Ceftriaxone Sodium 1 gm/ (Dextrose) 50 mls @ 100 mls/hr IVPB DAILY NICHOL; Protocol Last Admin: 10/22/18 09:38 Dose: 100 mls/hr - Objective Vital Signs: Vital Signs Temperature 98.6 F 10/22/18 14:57 Pulse Rate 83 10/22/18 14:57 Respiratory Rate 18 10/22/18 14:57 Blood Pressure 99/58 L 10/22/18 14:57 O2 Sat by Pulse Oximetry (%) 95 10/22/18 06:00 Constitutional: Yes: Calm Eyes: Yes: Conjunctiva Clear HENT: Yes: Atraumatic Neck: Yes: Supple Cardiovascular: Yes: S1, S2 Respiratory: Yes: CTA Bilaterally Gastrointestinal: Yes: Soft Genitourinary: Yes: WNL Musculoskeletal: Yes: WNL Edema: No Neurological: Yes: Oriented Psychiatric: Yes: Oriented Labs: CBC, BMP 10/21/18 06:45 10/22/18 06:45 INR, PTT INR 0.94 (0.83-1.09) 10/20/18 17:10 Assessment/Plan Current Medications Generic Name Dose Route Start Last Admin Trade Name Freq PRN Reason Stop Dose Admin Albuterol/Ipratropium 1 amp 10/21/18 12:00 10/22/18 11:40 Duoneb - NEB 1 amp RQID NICHOL Administration Carbidopa/Levodopa 1 combo 10/20/18 22:00 10/22/18 05:00 Sinemet *Cr* 50/200 - PO 1 combo TID NICHOL Administration Docusate Sodium 100 mg 10/20/18 19:58 Colace - PO BID PRN CONSTIPATION Sodium Chloride 1,000 mls @ 75 mls/hr 10/20/18 18:45 10/21/18 20:37 Normal Saline - IV Not Given ASDIR NICHOL Ceftriaxone Sodium 1 gm/ 50 mls @ 100 mls/hr 10/21/18 10:00 10/22/18 09:38 Dextrose IVPB 100 mls/hr DAILY NICHOL Administration Protocol Impression 1. ckd 2. UTI 3. HTN 4. cataract 5. urinary obstruction/strictures 6. 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
[2018-10-22 17:06] LABS: FREE KAPPA,SERUM 124.4 mg/L (3.3-19.4)
[2018-10-22 17:23] VITALS: TEMP 98.4
[2018-10-22 17:25] VITALS: BP 110/46
--- NOTE | 2018-10-22 18:47 | PN ---
Progress Note (short form) - Note Progress Note: Patient seen and examined Denies any complaints Last Vital Signs Temp Pulse Resp BP Pulse Ox 98.4 F 83 20 110/46 L 95 10/22/18 17:24 10/22/18 17:24 10/22/18 17:24 10/22/18 17:24 10/22/18 06:00 Cor: RSR, No murmurs, No gallops Lungs: Clear to P&A Abd: Soft, Normal bowel sounds, No organomegaly Ext:No significant edema Abnormal Lab Results 10/21/18 10/22/18 06:45 06:45 Chloride 111 H Anion Gap 7 L BUN 22.8 H Creatinine 1.6 H Calcium 8.0 L AST 7 L ALT < 6 L Total Protein 4.9 L Albumin 2.2 L Free [place] LC, Quant 124.4 H Free Lambda LC, Quant 599.9 H Free [place]/Lambda Ratio 0.21 L Active Medications Generic Name Dose Route Start Last Admin Trade Name Freq PRN Reason Stop Dose Admin Albuterol/Ipratropium 1 amp 10/21/18 12:00 10/22/18 15:58 Duoneb - NEB 1 amp RQID NICHOL Administration Carbidopa/Levodopa 1 combo 10/20/18 22:00 10/22/18 16:40 Sinemet *Cr* 50/200 - PO 1 combo TID NICHOL Administration Docusate Sodium 100 mg 10/20/18 19:58 Colace - PO BID PRN CONSTIPATION Sodium Chloride 1,000 mls @ 75 mls/hr 10/20/18 18:45 10/21/18 20:37 Normal Saline - IV Not Given ASDIR NICHOL Ceftriaxone Sodium 1 gm/ 50 mls @ 100 mls/hr 10/21/18 10:00 10/22/18 09:38 Dextrose IVPB 100 mls/hr DAILY NICHOL Administration Protocol A/P 77 y/o patient with myeloma, parkinsons disease, HTN, CHF, admitted with worsening renal function/UTI. Diuretics on hold recent PET-CT-- indeterminate C6 lesion, dependent lung changes, ascending colon polyp renal function improved with holding diuretic/gentle hydration Monitor for now continue revlimid 10mg daily for 21 days on/ 7 days off Follow up closely as outpatient f/u MRI C spine Monotor CBC/CMP weekly as outpatient
== END 2018-10-22 19:49 | DRG 683 ==
LOC: JER 14:25 → INTOOBSV 17:45 → JERBED 17:45 → J7W 22:59 → OBSVTOIN 10-21 08:37
PROVIDERS: ADMIT Internal Medicine; ATTEND Internal Medicine
DX: I12.9 Hypertensive chronic kidney disease with stage 1 through stage 4 chronic kidney disease, or unspecified chronic kidney disease (principal); N39.0 Urinary tract infection, site not specified; D61.818 Other pancytopenia; N17.9 Acute kidney failure, unspecified; C90.00 Multiple myeloma not having achieved remission; N18.3 Chronic kidney disease, stage 3 (moderate); G20 Parkinson's disease; J44.9 Chronic obstructive pulmonary disease, unspecified; Z66 Do not resuscitate; F17.210 Nicotine dependence, cigarettes, uncomplicated; G25.81 Restless legs syndrome; N35.919 Unspecified urethral stricture, male, unspecified site; F03.90 Unspecified dementia, unspecified severity, without behavioral disturbance, psychotic disturbance, mood disturbance, and anxiety; R29.6 Repeated falls; K63.5 Polyp of colon
CPT/HCPCS: 36415; 71045-TC-FY; 76775-TC; 80053; 81003; 82565; 83880; 83883; 84300; 84484; 85025; 85610; 85730; 87086; 87186; 93005; 93010; 94640; 99282-25; G0378; J7030

== ENCOUNTER 2018-11-03 09:32 | Inpatient (IN) | payer OTHER ==
[2018-11-03 09:48] VITALS: BMI 23.8
[2018-11-03 10:42] LABS: BASO % 1.3 % (0-2.0); EOS % 1.3 % (0-4.5); HEMATOCRIT 24.1 % (35.4-49); HEMOGLOBIN 7.9 GM/dL (11.7-16.9); LYMPH % 12.4 % (8-40); MCH 33.2 pg (25.7-33.7); MCHC 32.9 g/dl (32.0-35.9); MEAN CELL VOLUME 100.7 fl (80-96); MEAN PLT VOLUME 8.3 fl (7.5-11.1); MONO % 10.4 % (3.8-10.2); NEUT % 74.6 % (42.8-82.8); PLATELET COUNT 112 K/MM3 (134-434); RBC 2.39 M/mm3 (4.00-5.60); RDW 20.2 % (11.9-15.9)
[2018-11-03 10:58] LABS: PROTHROMBIN TIME (PATIENT) 11.8 SEC (9.7-13.0)
[2018-11-03 11:12] LABS: ALBUMIN 2.5 g/dl (3.4-5.0); ALK PHOS 136 U/L (45-117); ANION GAP 0 MMOL/L (8-16); BILIRUBIN,TOTAL 0.3 mg/dL (0.2-1); BLOOD UREA NITROGEN 14.4 mg/dL (7-18); CALCIUM 8.5 mg/dL (8.5-10.1); CHLORIDE 109 mmol/L (98-107); CO2 32 mmol/L (21-32); CREATININE 1.2 mg/dL (0.55-1.3); GLUCOSE,RANDOM 84 mg/dL (74-106); POTASSIUM 4.9 mmol/L (3.5-5.1); SGOT/AST 6 U/L (15-37); SGPT/ALT 7 U/L (13-61); SODIUM 142 mmol/L (136-145); TOT PROT 5.8 g/dl (6.4-8.2)
--- NOTE | 2018-11-03 13:01 | PDOC ---
Documentation entered by Shayy Ricardo SCRIBE, acting as scribe for Emily Lujan MD. Emily Lujan MD: This documentation has been prepared by the Haleigh kulkarni Adrianna, SCRIBE, under my direction and personally reviewed by me in its entirety. I confirm that the documentation accurately reflects all work, treatment, procedures, and medical decision making performed by me. History of Present Illness - General Stated Complaint: Blood Transfusion Time Seen by Provider: 11/03/18 09:35 History Source: Patient, Family Exam Limitations: No Limitations - History of Present Illness Initial Comments: The patient is a 77 year old male, with a significant PMH of Multiple Myeloma, parkinsonian features, urethral strictures, chronic renal failure and HTN, who presents to the ED [facility] from [facility] for blood transfusion. Patient was sent to [facility] for a transfusion as he was found to have a hemoglobin of 6.1 and a hematocrit of 20. Patient endorses some new onset RLE edema, but denies pain. He notes he has a chronic cough that is secondary to being a smoker. Patient is otherwise asymptomatic, and is able to properly answer questions. Denies fevers, chills, chest pain, SOB, diarrhea, constipation, dysuria, hematuria, blood in stool, melena, headache, nausea, vomiting, blurry vision, abdominal pain. Allergies: NKA, NKDA Surgical History: None reported Social History: Current smoker (smokes a few cigarettes per day, but used to smoke more). [facility] resident. Able to ambulate with a walker at baseline. PCP: Dr. Solano Oncologist: Dr. Ashraf Past History - Past Medical History Allergies/Adverse Reactions: Allergies Allergy/AdvReac Type Severity Reaction Status Date / Time No Known Allergies Allergy Verified 11/03/18 09:47 Home Medications: Ambulatory Orders Docusate Sodium [Colace -] 100 mg PO BID PRN #28 capsule 01/28/16 Acetaminophen 650 mg PO QID PRN 03/29/18 Carbidopa/Levodopa *Cr* 50/200 [Sinemet *Cr* 50/200 -] 1 combo PO TID 03/29/18 Cyanocobalamin Vit B-12 Inj. [Vitamin B12 Injection -] 1,000 mcg IM MONTHLY 01/04 Multivitamin,Ther and Minerals [Vitamin and Minerals] 1 each PO DAILY 03/29/18 Ipratropium/Albuterol Sulfate [Iprat-Albut 0.5-3(2.5) mg/3 ml] 3 ml IH PRN 11/03 Anemia: No Asthma: No Cancer: Yes (Multiple myeloma) Cardiac Disorders: No CVA: No COPD: Yes (?-ON INHALER-SMOKES 1 PPD) CHF: No Dementia: No Diabetes: No GI Disorders: No Disorders: No HTN: Yes (DX 05/2013) Hypercholesterolemia: No Liver Disease: No Seizures: No Thyroid Disease: No - Surgical History Abdominal Surgery: No Appendectomy: No Cardiac Surgery: No Cholecystectomy: No Lung Surgery: No Neurologic Surgery: No Orthopedic Surgery: No - Suicide/Smoking/Psychosocial Hx Smoking History: Current some day smoker Have you smoked in the past 12 months: No Number of Cigarettes Smoked Daily: 1 'Breaking Loose' booklet given: 10/11/14 Hx Alcohol Use: No Drug/Substance Use Hx: No Substance Use Type: None Hx Substance Use Treatment: No Review of Systems - Review of Systems Comments:: GENERAL/CONSTITUTIONAL: No fever or chills. No weakness. HEAD, EYES, EARS, NOSE AND THROAT: No change in vision. No ear pain or discharge. No sore throat. CARDIOVASCULAR: No chest pain or shortness of breath. RESPIRATORY: +Chronic cough (2/2 smoking). No wheezing or hemoptysis. GASTROINTESTINAL: No nausea, vomiting, diarrhea or constipation. GENITOURINARY: No dysuria, frequency, or change in urination. MUSCULOSKELETAL: +RLE edema. No joint or muscle pain. No neck or back pain. SKIN: No rash NEUROLOGIC: No headache, vertigo, loss of consciousness, or change in strength/ sensation. ENDOCRINE: No increased thirst. No abnormal weight change. HEMATOLOGIC/LYMPHATIC: No anemia, easy bleeding, or history of blood clots. ALLERGIC/IMMUNOLOGIC: No hives or skin allergy. *Physical Exam - Vital Signs Last Vital Signs Temp Pulse Resp BP Pulse Ox 97.4 F L 78 18 130/49 L 100 11/03/18 09:44 11/03/18 09:44 11/03/18 09:44 11/03/18 09:44 11/03/18 09:44 - Physical Exam Comments: GENERAL: The patient is in no acute distress. HEAD: Normal with no signs of trauma. EYES: +Pale conjunctiva. PERRLA, EOMI, sclera anicteric. ENT: Ears normal, nares patent, oropharynx clear without exudates. Moist mucous membranes. NECK: Normal range of motion, supple without lymphadenopathy, JVD, or masses. LUNGS: +Rhoncuris breath sounds. +Upper airway with transmitted respiratory sounds. Breath sounds equal bilaterally. HEART:Regular rate and rhythm, normal S1 and S2 without murmur, rub or gallop. ABDOMEN: Soft, nontender, normoactive bowel sounds. No guarding, no rebound. No masses palpable. EXTREMITIES: +RLE edema. Normal range of motion. No clubbing or cyanosis. No erythema, or tenderness. NEUROLOGICAL: Cranial nerves II through XII grossly intact. Normal speech. No focal neurological deficits. MUSCULOSKELETAL: Back nontender to palpation, no CVA tenderness SKIN: Warm, Dry, normal turgor, no rashes or lesions noted. ED Treatment Course - LABORATORY CBC & Chemistry Diagram: 11/03/18 10:20 11/03/18 10:20 - RADIOLOGY Radiograph Interpretation: EXAM#: TYPE/EXAM: RESULT: [id number] RAD/CHEST X-RAY PORTABLE* Preadmission. Impression. No evidence of active pulmonary disease. Reported By: Damon Rivera MD 11/03/18 10:47 EXAM#: TYPE/EXAM: RESULT: [id number] US/DUPLEX VASCUL US-2LEGS BILATERAL LOWER EXTREMITY VENOUS DUPLEX ULTRASOUND. HISTORY: 77-year-old male with lower extremity swelling IMPRESSION: No sonographic evidence of right or left lower extremity DVT. Reported By: Nathaniel Aguilar MD 11/03/18 12:58 Medical Decision Making - Medical Decision Making 11/03/18 10:23 EKG - NSR rate of 72 bpm, axis nml, intervals normal - pr:138ms, QRS: 78ms, QTc : 433ms, no st elevation or depression, t waves upright 11/03/18 12:15 77 yo M presenting from the halfway for his anemia Pt has a h/o Multiple Myeloma is currently on Revlimid Pt has a h/o chronic cough, this is unchanged He denies chest pain Is short of breath with exertion 11/03/18 12:30 Laboratory Tests 11/03/18 11/03/18 11/03/18 10:20 10:20 10:20 WBC 4.0 Hgb 7.9 L Hct 24.1 L Plt Count 112 L D INR 1.00 BUN 14.4 Creatinine 1.2 Creatine Kinase 12 L Troponin I < 0.[address] Ashraf She states pt will need iron studies as she is not sure his anemia is due to MM vs. other cause 11/03/18 12:49 consent obtained from Guillaume Carey for transfusion Pt is refusing rectal examination I have asked if this is because he has hemorrhoids or rectal/anal pain Pt states he just does not want me to do a rectal examination Will wait for pt to have a bowel movmement Case reviewed with pt pmd Will admit to his service Clinical impression: Symptomatic anemia, initial presentation *DC/Admit/Observation/Transfer Diagnosis at time of Disposition: Anemia Qualifiers: Anemia type: other cause Other causes of anemia: other cause, not classified Qualified Code(s): D64.89 - Other specified anemias - Discharge Dispostion Condition at time of disposition: Stable Decision to Admit order: Yes - Referrals Referrals: Alexander Solano MD [Primary Care Provider] - - Patient Instructions - Post Discharge Activity
[2018-11-03 14:03] LABS: IRON SERUM 49 ug/dL (50-175); TOTAL IRON BINDING CAPACITY 277 ug/dL (250-450)
[2018-11-03 14:21] LABS: LDH 126 U/L (87-246)
--- NOTE | 2018-11-03 14:53 | HP ---
Admitting History and Physical - Admission Chief Complaint: 77 y.o M [facility] resident with history of MM on Revlimid was found to have worsening anemia with HGB 6.7/HCT 20 . Sent to the ER [facility] for PRBC TX. History of Present Illness: MM ON REVLIMID BUT RECENTLY INCREASING SPEP/IF/LC. Leukopenia, anemia RECENT PET/CT SHOWED NEW C7 HYPERMETABOLIC LESION, F?U MRI C-spine DDD. 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 History Source: Medical Record Limitations to Obtaining History: No Limitations - Past Medical History [employer]: Yes: Parkinson's Cardiovascular: Yes: HTN Pulmonary: Yes: COPD, Other (copd) Renal/: Yes: Renal Failure - Smoking History Smoking history: Current some day smoker Have you smoked in the past 12 months: No Aproximately how many cigarettes per day: 1 - Alcohol/Substance Use Hx Alcohol Use: No History of Substance Use: reports: None - Social History ADL: Support Services History of Recent Travel: No Home Medications - Allergies Allergies/Adverse Reactions: Allergies Allergy/AdvReac Type Severity Reaction Status Date / Time No Known Allergies Allergy Verified 11/03/18 09:47 - Home Medications Home Medications: Ambulatory Orders Docusate Sodium [Colace -] 100 mg PO BID PRN #28 capsule 01/28/16 Acetaminophen 650 mg PO QID PRN 03/29/18 Carbidopa/Levodopa *Cr* 50/200 [Sinemet *Cr* 50/200 -] 1 combo PO TID 03/29/18 Cyanocobalamin Vit B-12 Inj. [Vitamin B12 Injection -] 1,000 mcg IM MONTHLY 01/04 Multivitamin,Ther and Minerals [Vitamin and Minerals] 1 each PO DAILY 03/29/18 Ipratropium/Albuterol Sulfate [Iprat-Albut 0.5-3(2.5) mg/3 ml] 3 ml IH PRN 11/03 Family Disease History - Family Disease History Family History: Unremarkable Review of Systems - Review of Systems Constitutional: denies: Chills, Diaphoresis, Fever Eyes: denies: Blind Spots, Blurred Vision, Double Vision, Photophobia HENT: denies: Difficult Swallowing, Ear Discharge Neck: denies: Decreased ROM, Lumps, Pain on Movement Cardiovascular: reports: Edema (LE). denies: Chest Pain Respiratory: reports: Cough, Exercise Intolerance, SOB on Exertion Gastrointestinal: denies: Abdominal Pain, Bloating, Constipation Genitourinary: denies: Burning, Discharge Breasts: reports: No Symptoms Reported Musculoskeletal: reports: Back Pain Integumentary: denies: Blister, Bruising Neurological: reports: Dizziness, Unsteady Gait. denies: Change in LOC, Parasthesia, Pre-Existing Deficit, Seizure Endocrine: reports: No Symptoms Hematology/Lymphatic: reports: No Symptoms Psychiatric: reports: No Symptoms Physical Examination Vital Signs: Vital Signs Temperature 97.6 F 11/03/18 13:55 Pulse Rate 73 11/03/18 13:55 Respiratory Rate 18 11/03/18 13:55 Blood Pressure 174/75 H 11/03/18 13:55 O2 Sat by Pulse Oximetry (%) 95 11/03/18 13:55 Constitutional: Yes: No Distress, Calm Eyes: Yes: Conjunctiva Clear, EOM Intact HENT: Yes: Atraumatic, Normocephalic. No: Drooling Neck: Yes: Supple, Trachea Midline Cardiovascular: Yes: Pulse Irregular (APC/VPC) Respiratory: Yes: Regular, CTA Bilaterally Gastrointestinal: Yes: Normal Bowel Sounds, Soft, Abdomen, Obese ...Rectal Exam: Yes: Deferred Renal/: No: Anuria, Bladder Distention Breast(s): Yes: WNL Musculoskeletal: No: Joint Stiffness, Joint Swelling Extremities: No: Amputation Edema: LLE: 1+, RLE: Trace Integumentary: Yes: WNL Neurological: Yes: Alert, Oriented. No: Aphasia ...Motor Strength: WNL Psychiatric: Yes: WNL Labs: CBC, BMP 11/03/18 10:20 11/03/18 10:20 Imaging - Results Chest X-ray: Report Reviewed Ultrasound: Report Reviewed (NO DVT LLE) Problem List - Problems (1) Anemia Assessment/Plan: Iron studies noted Ferritin > 200, unlikely iron deficiency TX v2 units PRBC CBC in AM Code(s): D64.9 - ANEMIA, UNSPECIFIED Qualifiers: Anemia type: other cause Other causes of anemia: other cause, not classified Qualified Code(s): D64.89 - Other specified anemias (2) COPD (chronic obstructive pulmonary disease) Assessment/Plan: Torres Matias Code(s): J44.9 - CHRONIC OBSTRUCTIVE PULMONARY DISEASE, UNSPECIFIED Qualifiers: COPD type: emphysema (3) Multiple myeloma not having achieved remission Assessment/Plan: Dr Ashraf f/u Code(s): C90.00 - MULTIPLE MYELOMA NOT HAVING ACHIEVED REMISSION (4) Acute renal insufficiency Assessment/Plan: Significantly imroved creat due to d/c diuretics, ARB. Code(s): N28.9 - DISORDER OF KIDNEY AND URETER, UNSPECIFIED (5) HTN (hypertension) Assessment/Plan: Start Amlodipine 5 mg QD and F/U BP Code(s): I10 - ESSENTIAL (PRIMARY) HYPERTENSION Qualifiers: Hypertension type: essential hypertension Qualified Code(s): I10 - Essential (primary) hypertension
[2018-11-03] MEDS ORDERED: DOCUSATE SODIUM 100 MG CAPSULE (FP) PO PRN (15:00)
--- NOTE | 2018-11-03 15:08 | EKG ---
Test Reason : Blood Pressure : / mmHG Vent. Rate : 072 BPM Atrial Rate : 072 BPM P-R Int : 138 ms QRS Dur : 078 ms QT Int : 396 ms P-R-T Axes : 052 -23 050 degrees QTc Int : 433 ms SINUS RHYTHM WITH PREMATURE SUPRAVENTRICULAR COMPLEXES LOW VOLTAGE QRS BORDERLINE ECG WHEN COMPARED WITH ECG OF 20-OCT-2018 14:38, PREMATURE SUPRAVENTRICULAR COMPLEXES ARE NOW PRESENT Confirmed by ROSA MOREIRA, FLORENCE ([id number]) on 11/03/2018 3:07:46 PM Referred By: Confirmed By:FLORENCE LEE MD
[2018-11-03] MEDS ORDERED: ALBUTEROL SO4 2.5/IPRATROPIUM 0.5 INH SOL 3 ML VIAL.NEB. NEB ONE ×2 (17:35→21:15)
[2018-11-03] MEDS: ALBUTEROL SO4 2.5/IPRATROPIUM 0.5 INH SOL 3 ML VIAL.NEB. NEB SCH ×2 (17:37→21:15)
--- NOTE | 2018-11-04 08:01 | PN ---
Progress Note, Physician Chief Complaint: Received 1 units PRBC . To receive 1 unit today AM Today comfortable in bed History of Present Illness: MM ON REVLIMID BUT RECENTLY INCREASING SPEP/IF/LC. Leukopenia, anemia RECENT PET/CT SHOWED NEW C7 HYPERMETABOLIC LESION, F?U MRI C-spine DDD. 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 - Current Medication List Current Medications: Active Medications Albuterol/Ipratropium (Duoneb -) 1 amp NEB RQID [facility] Last Admin: 11/03/18 21:15 Dose: 1 amp Amlodipine Besylate (Norvasc -) 5 mg PO DAILY [facility] Carbidopa/Levodopa (Sinemet *Cr* 50/200 -) 1 combo PO TID [facility] Last Admin: 11/04/18 06:21 Dose: 1 combo Docusate Sodium (Colace -) 100 mg PO BID PRN PRN Reason: CONSTIPATION - Objective Vital Signs: Vital Signs Temperature 98.1 F 11/04/18 01:28 Pulse Rate 72 11/04/18 01:28 Respiratory Rate 20 11/04/18 01:28 Blood Pressure 130/62 11/04/18 01:28 O2 Sat by Pulse Oximetry (%) 95 11/04/18 01:28 Constitutional: Yes: No Distress, Calm Eyes: Yes: Conjunctiva Clear, EOM Intact HENT: Yes: Atraumatic, Normocephalic Neck: Yes: Supple, Trachea Midline Cardiovascular: Yes: Regular Rate and Rhythm Respiratory: Yes: Regular, Rhonchi, SOB, SOB on Exertion, Wheezes Gastrointestinal: Yes: Normal Bowel Sounds, Soft Breast(s): Yes: WNL Musculoskeletal: Yes: WNL Extremities: No: Calf Tenderness, Cold, Deformity Integumentary: Yes: WNL Neurological: Yes: WNL ...Motor Strength: WNL Psychiatric: Yes: WNL Labs: INR, PTT INR 1.00 (0.83-1.09) 11/03/18 10:20 Problem List - Problems (1) Anemia Assessment/Plan: After 2 units PRBC if stable can go to SNF Code(s): D64.9 - ANEMIA, UNSPECIFIED Qualifiers: Anemia type: other cause Other causes of anemia: other cause, not classified Qualified Code(s): D64.89 - Other specified anemias (2) COPD (chronic obstructive pulmonary disease) Assessment/Plan: Nebs STACIA Matias Code(s): J44.9 - CHRONIC OBSTRUCTIVE PULMONARY DISEASE, UNSPECIFIED Qualifiers: COPD type: emphysema (3) Multiple myeloma not having achieved remission Assessment/Plan: Dr Ashraf f/u Code(s): C90.00 - MULTIPLE MYELOMA NOT HAVING ACHIEVED REMISSION (4) Acute renal insufficiency Assessment/Plan: Significantly imroved creat due to d/c diuretics, ARB. Code(s): N28.9 - DISORDER OF KIDNEY AND URETER, UNSPECIFIED (5) HTN (hypertension) Assessment/Plan: Start Amlodipine 5 mg QD and F/U BP Code(s): I10 - ESSENTIAL (PRIMARY) HYPERTENSION Qualifiers: Hypertension type: essential hypertension Qualified Code(s): I10 - Essential (primary) hypertension
[2018-11-04 08:04] LABS: EOS % 1.2 % (0-4.5); LYMPH % 11.8 % (8-40); MCH 32.8 pg (25.7-33.7); MCHC 33.2 g/dl (32.0-35.9); MEAN CELL VOLUME 98.9 fl (80-96); MEAN PLT VOLUME 8.6 fl (7.5-11.1); MONO % 13.7 % (3.8-10.2); NEUT % 71.3 % (42.8-82.8); PLATELET COUNT 105 K/MM3 (134-434); RBC 2.73 M/mm3 (4.00-5.60); RDW 20.2 % (11.9-15.9); WHITE BLOOD COUNT 3.9 K/mm3 (4.0-10.0)
--- NOTE | 2018-11-04 08:09 | DS ---
Physical Examination Vital Signs: Vital Signs Temperature 98.1 F 11/04/18 01:28 Pulse Rate 72 11/04/18 01:28 Respiratory Rate 20 11/04/18 01:28 Blood Pressure 130/62 11/04/18 01:28 O2 Sat by Pulse Oximetry (%) 95 11/04/18 01:28 Constitutional: Yes: No Distress Eyes: Yes: Conjunctiva Clear, EOM Intact HENT: Yes: Atraumatic, Normocephalic Neck: Yes: Supple, Trachea Midline Cardiovascular: Yes: Regular Rate and Rhythm Respiratory: Yes: Rhonchi, SOB, SOB on Exertion Gastrointestinal: Yes: Normal Bowel Sounds, Soft ...Rectal Exam: Yes: Deferred Renal/: No: Anuria Breast(s): Yes: WNL Musculoskeletal: No: Back Pain Extremities: No: Amputation, Calf Tenderness Edema: No Integumentary: Yes: WNL ...Motor Strength: WNL Psychiatric: Yes: WNL Labs: Laboratory Results - last 24 hr 11/03/18 11/03/18 11/03/18 10:20 10:20 10:20 WBC 4.0 RBC 2.39 L Hgb 7.9 L Hct 24.1 L MCV 100.7 H MCH 33.2 MCHC 32.9 RDW 20.2 H Plt Count 112 L D MPV 8.3 D Absolute Neuts (auto) 3.0 Neutrophils % 74.6 Lymphocytes % 12.4 D Monocytes % 10.4 H Eosinophils % 1.3 D Basophils % 1.3 Nucleated RBC % 0 PT with INR 11.80 INR 1.00 Sodium 142 Potassium 4.9 Chloride 109 H Carbon Dioxide 32 Anion Gap 0 L BUN 14.4 Creatinine 1.2 Est GFR (CKD-EPI)AfAm 66.73 Est GFR (CKD-EPI)NonAf 57.57 Random Glucose 84 Calcium 8.5 Iron TIBC Iron Saturation Unsaturated IBC Ferritin 276.2 Total Bilirubin 0.3 AST 6 L ALT 7 L Alkaline Phosphatase 136 H LD Total 126 Creatine Kinase 12 L Troponin I < 0.02 Total Protein 5.8 L Albumin 2.5 L Serum Folate 20 H Blood Type Antibody Screen Crossmatch 11/03/18 11/03/18 10:20 12:06 WBC RBC Hgb Hct MCV MCH MCHC RDW Plt Count MPV Absolute Neuts (auto) Neutrophils % Lymphocytes % Monocytes % Eosinophils % Basophils % Nucleated RBC % PT with INR INR Sodium Potassium Chloride Carbon Dioxide Anion Gap BUN Creatinine Est GFR (CKD-EPI)AfAm Est GFR (CKD-EPI)NonAf Random Glucose Calcium Iron 49 L TIBC 277 Iron Saturation 17 L Unsaturated IBC 228 Ferritin Total Bilirubin AST ALT Alkaline Phosphatase LD Total Creatine Kinase Troponin I Total Protein Albumin Serum Folate Blood Type AB NEGATIVE Antibody Screen Negative Crossmatch See Detail Current Active Problems Problem Status Onset Anemia Acute HTN (hypertension) Acute D/C to [facility] after blood TX F/u at [facility] Discharge Summary Reason For Visit: ANEMIA Current Active Problems Anemia (Acute) HTN (hypertension) (Acute) Condition: Stable - Instructions - Home Medications Comprehensive Discharge Medication List: Ambulatory Orders Docusate Sodium [Colace -] 100 mg PO BID PRN #28 capsule 01/28/16 Acetaminophen 650 mg PO QID PRN 03/29/18 Carbidopa/Levodopa *Cr* 50/200 [Sinemet *Cr* 50/200 -] 1 combo PO TID 03/29/18 Cyanocobalamin Vit B-12 Inj. [Vitamin B12 Injection -] 1,000 mcg IM MONTHLY 01/04 Multivitamin,Ther and Minerals [Vitamin and Minerals] 1 each PO DAILY 03/29/18 Ipratropium/Albuterol Sulfate [Iprat-Albut 0.5-3(2.5) mg/3 ml] 3 ml IH PRN 11/03
[2018-11-04 08:32] LABS: ALBUMIN 2.6 g/dl (3.4-5.0); ALK PHOS 132 U/L (45-117); ANION GAP 5 MMOL/L (8-16); BILIRUBIN,TOTAL 0.5 mg/dL (0.2-1); BLOOD UREA NITROGEN 16.5 mg/dL (7-18); CALCIUM 8.6 mg/dL (8.5-10.1); CHLORIDE 111 mmol/L (98-107); CO2 26 mmol/L (21-32); CREATININE 1.1 mg/dL (0.55-1.3); GLUCOSE,RANDOM 85 mg/dL (74-106); POTASSIUM 4.7 mmol/L (3.5-5.1); SGOT/AST 9 U/L (15-37); SGPT/ALT < 6 U/L (13-61); SODIUM 142 mmol/L (136-145); TOT PROT 5.6 g/dl (6.4-8.2)
[2018-11-04] MEDS ORDERED: amLODIPine BESYLATE 5 MG TABLET (FP) PO SCH (10:00)
[2018-11-04] MEDS ORDERED: ALBUTEROL SO4 2.5/IPRATROPIUM 0.5 INH SOL 3 ML VIAL.NEB. NEB ONE (15:08)
[2018-11-04 17:14] VITALS: BP 134/64; PULSE 92; TEMP 98.6
== END 2018-11-04 15:00 | DRG 812 ==
LOC: JER 09:32 → JERBED 13:01
PROVIDERS: ADMIT Internal Medicine; ATTEND Internal Medicine
PROC: 30233N1 Transfusion of Nonautologous Red Blood Cells into Peripheral Vein, Percutaneous Approach (ICD-10-PCS; principal; 2018-11-03)
DX: D64.9 Anemia, unspecified (principal); C90.00 Multiple myeloma not having achieved remission; J44.9 Chronic obstructive pulmonary disease, unspecified; N18.3 Chronic kidney disease, stage 3 (moderate); I12.9 Hypertensive chronic kidney disease with stage 1 through stage 4 chronic kidney disease, or unspecified chronic kidney disease; F17.210 Nicotine dependence, cigarettes, uncomplicated; G20 Parkinson's disease; F02.80 Dementia in other diseases classified elsewhere, unspecified severity, without behavioral disturbance, psychotic disturbance, mood disturbance, and anxiety
CPT/HCPCS: 36415; 36430; 36511; 71045-TC-FY; 80053; 82550; 82728; 82746; 83010; 83540; 83550; 83615; 84484; 85025; 85610; 86850; 86900; 86901; 86922; 93005; 93010; 93970-TC; 99285-25; P9038; P9058

== ENCOUNTER 2020-05-11 09:40 | Emergency (ER) | payer OTHER ==
[2020-05-11 09:50] VITALS: PULSE 88; TEMP 98.4; BMI 28.1
[2020-05-11 11:10] LABS: BASO % 0.1 % (0-2.0); HEMATOCRIT 40.1 % (35.4-49); HEMOGLOBIN 13.1 GM/dL (11.7-16.9); LYMPH % 3.4 % (8-40); MCH 31.8 pg (25.7-33.7); MCHC 32.7 g/dl (32.0-35.9); MEAN CELL VOLUME 97.1 fl (80-96); MEAN PLT VOLUME 10.3 fl (7.5-11.1); MONO % 4.6 % (3.8-10.2); NEUT % 90.9 % (42.8-82.8); PLATELET COUNT 101 K/MM3 (134-434); RBC 4.13 M/mm3 (4.00-5.60); RDW 15.2 % (11.9-15.9)
[2020-05-11 11:20] LABS: PROTHROMBIN TIME (PATIENT) 12.1 SEC (9.7-13.0)
[2020-05-11 11:23] LABS: ACTIVATED PTT 27.7 SECONDS (25.2-36.5)
[2020-05-11 11:29] LABS: CALCIUM 9.2 mg/dL (8.5-10.1); CHLORIDE 104 mmol/L (98-107); POTASSIUM 3.3 mmol/L (3.5-5.1); SODIUM 144 mmol/L (136-145)
[2020-05-11 11:30] LABS: ANION GAP 10 MMOL/L (8-16); BLOOD UREA NITROGEN 33.1 mg/dL (7-18); CO2 29 mmol/L (21-32); GLUCOSE,RANDOM 68 mg/dL (74-106); MAGNESIUM 1.9 mg/dL (1.8-2.4)
[2020-05-11 11:33] LABS: CREATININE 2.2 mg/dL (0.55-1.3); PHOSPHOROUS 2.4 mg/dL (2.5-4.9); SGOT/AST 22 U/L (15-37); SGPT/ALT 8 U/L (13-61)
[2020-05-11 11:34] LABS: BILIRUBIN,TOTAL 0.7 mg/dL (0.2-1); TOT PROT 6.6 g/dl (6.4-8.2)
[2020-05-11 11:36] LABS: ALK PHOS 117 U/L (45-117)
[2020-05-11 11:38] LABS: N-TERMINAL BNP 6619.8 pg/ml (5-450)
[2020-05-11] MEDS ORDERED: POTASSIUM CHLORIDE TABS 20 MEQ TABLET.ER (FP) PO ONE ×2 (12:52→13:02)
[2020-05-11 15:01] VITALS: BP 127/82
== END 2020-05-11 14:30 | disposition home or self-care (01) ==
LOC: JER 09:40
DX: J44.9 Chronic obstructive pulmonary disease, unspecified (principal)
CPT/HCPCS: 36415; 71045-TC-FY; 80053; 82550; 82553; 83735; 83880; 84100; 84443; 84484; 85025; 85610; 85730; 93005; 93010; 99285-25

== ENCOUNTER 2020-05-16 11:14 | Inpatient (IN) | payer OTHER, MEDICARE ==
[2020-05-16 11:29] VITALS: BMI 28.1
[2020-05-16 13:04] LABS: BASO % 0.7 % (0-2.0); EOS % 1.7 % (0-4.5); HEMATOCRIT 39.1 % (35.4-49); HEMOGLOBIN 12.6 GM/dL (11.7-16.9); LYMPH % 5.5 % (8-40); MCH 31.2 pg (25.7-33.7); MCHC 32.2 g/dl (32.0-35.9); MEAN CELL VOLUME 96.8 fl (80-96); MEAN PLT VOLUME 11.8 fl (7.5-11.1); MONO % 12.6 % (3.8-10.2); NEUT % 79.5 % (42.8-82.8); PLATELET COUNT 124 K/MM3 (134-434); RBC 4.04 M/mm3 (4.00-5.60); RDW 15.6 % (11.9-15.9); WHITE BLOOD COUNT 8.5 K/mm3 (4.0-10.0)
[2020-05-16 13:11] LABS: INR 1.02 (0.83-1.09); PROTHROMBIN TIME (PATIENT) 12.5 SEC (9.7-13.0)
[2020-05-16 13:13] LABS: ACTIVATED PTT 26.9 SECONDS (25.2-36.5)
[2020-05-16 13:31] LABS: CHLORIDE 105 mmol/L (98-107); POTASSIUM 5.2 mmol/L (3.5-5.1); SODIUM 138 mmol/L (136-145)
[2020-05-16 13:34] LABS: ALBUMIN 2.8 g/dl (3.4-5.0); CALCIUM 8.4 mg/dL (8.5-10.1)
[2020-05-16 13:35] LABS: ANION GAP 7 MMOL/L (8-16); BLOOD UREA NITROGEN 22.6 mg/dL (7-18); CO2 27 mmol/L (21-32); GLUCOSE,RANDOM 91 mg/dL (74-106)
[2020-05-16 13:38] LABS: SGOT/AST 43 U/L (15-37); SGPT/ALT 11 U/L (13-61)
[2020-05-16 13:39] LABS: BILIRUBIN,TOTAL 1.3 mg/dL (0.2-1); TOT PROT 6.6 g/dl (6.4-8.2)
[2020-05-16 13:41] LABS: ALK PHOS 104 U/L (45-117)
[2020-05-16 13:43] LABS: N-TERMINAL BNP 2731.1 pg/ml (5-450)
[2020-05-16 13:48] LABS: LDH 462 U/L (87-246)
[2020-05-16] MEDS ORDERED: FUROSEMIDE 40 MG/4 ML INJECTABLE VIAL IVPUSH ONE (15:24)
[2020-05-16] MEDS ORDERED: ALBUTEROL SO4 2.5/IPRATROPIUM 0.5 INH SOL 3 ML VIAL.NEB. NEB SCH (17:00)
[2020-05-16] MEDS ORDERED: ALBUTEROL SO4 HFA INHALER IH PRN (17:01)
[2020-05-16] MEDS ORDERED: HEPARIN NA (PORCINE) 5,000 UNITS/ML 1ML VIAL IVPUSH PRN ×4 (17:50→18:26)
[2020-05-16] MEDS ORDERED: HEPARIN - 25,000 UNIT in SODIUM CHLORIDE 495 ML IV SCH (18:00)
[2020-05-16] MEDS ORDERED: HEPARIN NA (PORCINE) 5,000 UNITS/ML 1ML VIAL IVPUSH ONE (18:27)
[2020-05-16] MEDS: HEPARIN - 25,000 UNIT in SODIUM CHLORIDE 495 ML IV SCH (18:39)
[2020-05-16] MEDS ORDERED: CARBIDOPA/LEVODOPA 25/100 TABLET (FP) ONE (21:08)
[2020-05-16] MEDS ORDERED: HEPARIN NA (PORCINE) 5,000 UNITS/ML 1ML VIAL SQ SCH (22:00)
[2020-05-17 06:38] LABS: BASO % 0.3 % (0-2.0); EOS % 2.6 % (0-4.5); HEMATOCRIT 36.9 % (35.4-49); LYMPH % 7.7 % (8-40); MCH 31.6 pg (25.7-33.7); MCHC 32.3 g/dl (32.0-35.9); MEAN CELL VOLUME 97.6 fl (80-96); MEAN PLT VOLUME 11.6 fl (7.5-11.1); MONO % 12.8 % (3.8-10.2); NEUT % 76.6 % (42.8-82.8); PLATELET COUNT 83 K/MM3 (134-434); RBC 3.79 M/mm3 (4.00-5.60); RDW 15.7 % (11.9-15.9); WHITE BLOOD COUNT 5.9 K/mm3 (4.0-10.0)
[2020-05-17 07:36] LABS: ALBUMIN 2.6 g/dl (3.4-5.0); BILIRUBIN,TOTAL 1.1 mg/dL (0.2-1); BLOOD UREA NITROGEN 23.5 mg/dL (7-18); CALCIUM 8.1 mg/dL (8.5-10.1); CREATININE 1.8 mg/dL (0.55-1.3); MAGNESIUM 1.7 mg/dL (1.8-2.4); PHOSPHOROUS 3.5 mg/dL (2.5-4.9); TOT PROT 5.7 g/dl (6.4-8.2)
[2020-05-17] MEDS ORDERED: LOSARTAN POTASSIUM 50 MG TABLET PO SCH ×2 (10:00→13:45)
[2020-05-17] MEDS ORDERED: LOSARTAN POTASSIUM 50 MG TABLET ONE (10:13)
[2020-05-17] MEDS ORDERED: HEPARIN INFUSION - 25,000 UNITS/500 ML INFUS.BAG IVPB ONE (14:37)
[2020-05-17] MEDS ORDERED: MAGNESIUM SULF 50% (8.12 MEQ/2 ML-1 GM VIAL) IVPB ONE (14:45)
[2020-05-17] MEDS ORDERED: MAGNESIUM SULF 50% (8.12 MEQ/2 ML-1 GM VIAL) ONE (14:54)
[2020-05-17] MEDS ORDERED: CARBIDOPA/LEVODOPA 25/100 TABLET (FP) ONE (14:55)
[2020-05-17] MEDS ORDERED: LOSARTAN POTASSIUM 25 MG TABLET PO SCH (17:41)
[2020-05-18] MEDS: HEPARIN - 25,000 UNIT in SODIUM CHLORIDE 495 ML IV SCH (07:00)
[2020-05-18 07:08] LABS: IGA IMMUNOGLOBULIN 374 mg/dL (61-437); IGG QN IMMUNOGLOBULIN 523 mg/dL (603-1613); IGM QN SERUM 35 mg/dL (15-143)
[2020-05-18 08:03] LABS: HEMATOCRIT 35.3 % (35.4-49); HEMOGLOBIN 11.9 GM/dL (11.7-16.9); MCH 32.1 pg (25.7-33.7); MCHC 33.6 g/dl (32.0-35.9); MEAN CELL VOLUME 95.6 fl (80-96); MEAN PLT VOLUME 10.9 fl (7.5-11.1); PLATELET COUNT 96 K/MM3 (134-434); RDW 15.4 % (11.9-15.9); WHITE BLOOD COUNT 5.2 K/mm3 (4.0-10.0)
[2020-05-18 08:14] LABS: POTASSIUM 3.9 mmol/L (3.5-5.1)
[2020-05-18 08:33] LABS: CALCIUM 8.3 mg/dL (8.5-10.1)
[2020-05-18 08:34] LABS: ALBUMIN 2.4 g/dl (3.4-5.0); BLOOD UREA NITROGEN 19.6 mg/dL (7-18); MAGNESIUM 2.1 mg/dL (1.8-2.4)
[2020-05-18 08:37] LABS: CREATININE 1.6 mg/dL (0.55-1.3)
[2020-05-18 08:38] LABS: BILIRUBIN,TOTAL 0.8 mg/dL (0.2-1); TOT PROT 5.6 g/dl (6.4-8.2)
[2020-05-18] MEDS ORDERED: SODIUM CHLORIDE 500 ML IV STA (11:52)
[2020-05-18] MEDS: APIXABAN 5 MG TABLET PO SCH ×2 (13:34→21:16)
[2020-05-18] MEDS ORDERED: PT OWN MED DRAWER 7, Y5N ONE (21:08)
[2020-05-19 08:41] LABS: BASO % 0.2 % (0-2.0); EOS % 4.6 % (0-4.5); LYMPH % 9.2 % (8-40); MCH 32.2 pg (25.7-33.7); MCHC 33.2 g/dl (32.0-35.9); MEAN PLT VOLUME 10.8 fl (7.5-11.1); MONO % 15.7 % (3.8-10.2); NEUT % 70.3 % (42.8-82.8); PLATELET COUNT 103 K/MM3 (134-434); RBC 3.41 M/mm3 (4.00-5.60); RDW 14.8 % (11.9-15.9)
[2020-05-19 09:03] LABS: POTASSIUM 4.1 mmol/L (3.5-5.1)
[2020-05-19 09:04] LABS: CALCIUM 8.3 mg/dL (8.5-10.1)
[2020-05-19 09:05] LABS: BLOOD UREA NITROGEN 15.8 mg/dL (7-18)
[2020-05-19 09:08] LABS: CREATININE 1.5 mg/dL (0.55-1.3)
[2020-05-19 09:33] LABS: EPI CELLS 11 /uL (0-25.1); HYALINE CASTS 2 /uL (0-3.1); PH,URINE 5.5 (5.0-8.0); URINE APPEARANCE TURBID; URINE BACTERIA >9,000 /uL (0-1359); URINE BILIRUBIN NEGATIVE (NEGATIVE); URINE COLOR YELLOW; URINE GLUCOSE (UA) NEGATIVE (NEGATIVE); URINE KETONE NEGATIVE (NEGATIVE); URINE LEUK ESTERASE 2+ (NEGATIVE); URINE NITRITE NEGATIVE (NEGATIVE); URINE PROTEIN 2+ (NEGATIVE); URINE RBC 30 /uL (0-23.9); URINE WBC 2660 /uL (0-25.8)
[2020-05-19] MEDS: APIXABAN 5 MG TABLET PO SCH ×2 (09:47→21:21)
[2020-05-19] MEDS ORDERED: PT OWN MED DRAWER 7, Y5N ONE (14:19)
[2020-05-19] MEDS: PATIENT'S OWN MEDICATION (NON-FORMULARY) (Lenalidomide [Revlimid] 5 MG Capsule) PO SCH ×2 (15:35→15:36)
[2020-05-20] MEDS: LOSARTAN POTASSIUM 25 MG TABLET PO SCH (10:41)
[2020-05-20] MEDS: APIXABAN 5 MG TABLET PO SCH ×2 (10:41→21:38)
[2020-05-20] MEDS ORDERED: DEXTROSE 5%-WATER - 50 ML IVPB ONE (12:29)
[2020-05-20] MEDS ORDERED: cefTRIAXone SODIUM 1 GM VIAL ONE (12:29)
[2020-05-20] MEDS: CEFTRIAXONE 1 GM in DEXTROSE 5%-WATER - 50 ML IVPB SCH (12:33)
[2020-05-21 07:54] LABS: BASO % 0.4 % (0-2.0); EOS % 4.1 % (0-4.5); HEMATOCRIT 35.4 % (35.4-49); HEMOGLOBIN 11.9 GM/dL (11.7-16.9); LYMPH % 9.7 % (8-40); MCH 32.3 pg (25.7-33.7); MCHC 33.5 g/dl (32.0-35.9); MEAN CELL VOLUME 96.4 fl (80-96); MEAN PLT VOLUME 10.4 fl (7.5-11.1); MONO % 14.1 % (3.8-10.2); NEUT % 71.7 % (42.8-82.8); PLATELET COUNT 139 K/MM3 (134-434); RBC 3.67 M/mm3 (4.00-5.60); RDW 14.7 % (11.9-15.9); WHITE BLOOD COUNT 4.3 K/mm3 (4.0-10.0)
[2020-05-21 08:05] LABS: POTASSIUM 4.8 mmol/L (3.5-5.1)
[2020-05-21 08:09] LABS: ALBUMIN 2.4 g/dl (3.4-5.0); BLOOD UREA NITROGEN 12.5 mg/dL (7-18); CALCIUM 8.3 mg/dL (8.5-10.1)
[2020-05-21 08:12] LABS: CREATININE 1.4 mg/dL (0.55-1.3)
[2020-05-21 08:14] LABS: BILIRUBIN,TOTAL 0.5 mg/dL (0.2-1); TOT PROT 5.7 g/dl (6.4-8.2)
[2020-05-21] MEDS ORDERED: PT OWN MED DRAWER 7, Y5N ONE (08:24)
[2020-05-21] MEDS ORDERED: cefTRIAXone SODIUM 1 GM VIAL ONE (09:07)
[2020-05-21] MEDS ORDERED: DEXTROSE 5%-WATER - 50 ML IVPB ONE (09:07)
[2020-05-21] MEDS: CEFTRIAXONE 1 GM in DEXTROSE 5%-WATER - 50 ML IVPB SCH (09:14)
[2020-05-21] MEDS: LOSARTAN POTASSIUM 25 MG TABLET PO SCH (09:14)
[2020-05-21] MEDS: APIXABAN 5 MG TABLET PO SCH (09:14)
[2020-05-21 19:49] VITALS: BP 145/55; PULSE 64; TEMP 97.9
== END 2020-05-21 19:00 | DRG 175 ==
LOC: JER 11:14 → INTOOBSV 15:25 → JERBED 15:25 → OBSVTOIN 19:46 → J4W 05-17 15:27 → J4S 05-18 18:50
PROVIDERS: ADMIT Internal Medicine
DX: I26.99 Other pulmonary embolism without acute cor pulmonale (principal); J96.01 Acute respiratory failure with hypoxia; I82.4Z2 Acute embolism and thrombosis of unspecified deep veins of left distal lower extremity; N17.9 Acute kidney failure, unspecified; C90.00 Multiple myeloma not having achieved remission; N39.0 Urinary tract infection, site not specified; I13.0 Hypertensive heart and chronic kidney disease with heart failure and stage 1 through stage 4 chronic kidney disease, or unspecified chronic kidney disease; G20 Parkinson's disease; N18.30 Chronic kidney disease, stage 3 unspecified; R74.01 Elevation of levels of liver transaminase levels; D69.6 Thrombocytopenia, unspecified; E87.5 Hyperkalemia; J44.9 Chronic obstructive pulmonary disease, unspecified; I50.9 Heart failure, unspecified
CPT/HCPCS: 36415; 71045-TC-FY; 71275-TC; 80048; 80053; 81003; 82272; 82550; 82570; 82728; 82784; 83615; 83735; 83880; 84100; 84300; 84484; 85025; 85027; 85379; 85610; 85730; 86140; 87086; 87186; 93005; 93010; 93306-TC; 93970-TC; 94761; 97116-GP; 97161-GP; 99285-25; C9803; G0378; J1644; U0003; U0005

== ENCOUNTER 2020-07-18 07:42 | Day surgery (SDC) | payer OTHER, MEDICARE ==
[2020-07-18] MEDS ORDERED: ACETAMINOPHEN 325 MG TABLET (FP) PO ONE (10:00)
[2020-07-18] MEDS ORDERED: FAMOTIDINE 20 MG/50 ML IVPB 20 MG/50 ML MG IVPB ONE (10:00)
[2020-07-18] MEDS ORDERED: MONTELUKAST NA 10 MG TABLET PO ONE (10:00)
[2020-07-18] MEDS ORDERED: DEXAMETHASONE SODIUM PHOSPHATE 20 MG, DIPHENHYDRAMINE 25 MG in SODIUM CHLORIDE 100 ML IVPB ONE (10:00)
[2020-07-18] MEDS ORDERED: DARATUMUMAB-HYALURONIDASE-FIHJ (FASPRO) 15 ML VIAL SQ ONE (10:30)
[2020-07-18 12:46] LABS: BASO % 1.4 % (0-2.0); EOS % 5.6 % (0-4.5); HEMATOCRIT 30.9 % (35.4-49); HEMOGLOBIN 10.4 GM/dL (11.7-16.9); LYMPH % 11.2 % (8-40); MCHC 33.7 g/dl (32.0-35.9); MEAN CELL VOLUME 94.8 fl (80-96); MEAN PLT VOLUME 9.4 fl (7.5-11.1); MONO % 11.8 % (3.8-10.2); PLATELET COUNT 96 K/MM3 (134-434); RBC 3.26 M/mm3 (4.00-5.60); WHITE BLOOD COUNT 4.4 K/mm3 (4.0-10.0)
[2020-07-18 13:13] LABS: CALCIUM 8.5 mg/dL (8.5-10.1)
[2020-07-18 13:14] LABS: ALBUMIN 3.1 g/dl (3.4-5.0); BLOOD UREA NITROGEN 27.2 mg/dL (7-18)
[2020-07-18 13:17] LABS: CREATININE 1.9 mg/dL (0.55-1.3)
[2020-07-18 13:19] LABS: BILIRUBIN,TOTAL 0.6 mg/dL (0.2-1); TOT PROT 5.9 g/dl (6.4-8.2)
[2020-07-18 13:58] LABS: ANISOCYTOSIS 1+; MACROCYTOSIS 0; PLATELET ESTIMATE DECREASED
[2020-07-18] MEDS ORDERED: ALBUTEROL SO4 0.083% IH SOL 2.5 MG/3 ML VIAL.NEB. NEB PRN (16:30)
[2020-07-18] MEDS ORDERED: ALBUTEROL SO4 HFA INHALER IH ONE (17:49)
[2020-07-18] MEDS ORDERED: BUDESONIDE/FORMETEROL FUMARATE 160/4.5 mcg INHALER IH ONE (17:49)
[2020-07-18 18:56] VITALS: BP 152/67; PULSE 101; TEMP 98.5
== END 2020-07-18 18:35 | disposition home or self-care (01) ==
LOC: JONCCHEMO 07:42
PROVIDERS: ATTEND Internal Medicine Hematology & Oncology
PROC: 3E01305 Introduction of Other Antineoplastic into Subcutaneous Tissue, Percutaneous Approach (ICD-10-PCS; principal; 2020-07-18)
PROC: 3E033GC Introduction of Other Therapeutic Substance into Peripheral Vein, Percutaneous Approach (ICD-10-PCS; 2020-07-18)
DX: Z51.11 Encounter for antineoplastic chemotherapy (principal); C90.00 Multiple myeloma not having achieved remission
CPT/HCPCS: 36415; 80053; 82784; 84155; 84165; 85025; 86334; 86850; 86900; 86901; 96365; 96401; J9144

== ENCOUNTER 2020-07-25 07:17 | Day surgery (SDC) | payer OTHER, MEDICARE ==
[2020-07-25] MEDS ORDERED: DEXAMETHASONE SODIUM PHOSPHATE 20 MG, DIPHENHYDRAMINE 25 MG in SODIUM CHLORIDE 100 ML IVPB ONE (09:30)
[2020-07-25] MEDS ORDERED: FAMOTIDINE 20 MG/50 ML IVPB 20 MG/50 ML MG IVPB ONE (09:30)
[2020-07-25] MEDS ORDERED: ACETAMINOPHEN 325 MG TABLET (FP) PO ONE (09:30)
[2020-07-25] MEDS ORDERED: DARATUMUMAB-HYALURONIDASE-FIHJ (FASPRO) 15 ML VIAL SQ ONE (10:00)
[2020-07-25 10:34] LABS: BASO % 0.9 % (0-2.0); EOS % 3.6 % (0-4.5); HEMATOCRIT 30.5 % (35.4-49); HEMOGLOBIN 10.4 GM/dL (11.7-16.9); LYMPH % 8.9 % (8-40); MCH 32.3 pg (25.7-33.7); MEAN CELL VOLUME 94.8 fl (80-96); MEAN PLT VOLUME 9.7 fl (7.5-11.1); NEUT % 72.6 % (42.8-82.8); PLATELET COUNT 141 K/MM3 (134-434); RBC 3.21 M/mm3 (4.00-5.60); RDW 17.4 % (11.9-15.9); WHITE BLOOD COUNT 4.1 K/mm3 (4.0-10.0)
[2020-07-25] MEDS ORDERED: ALBUTEROL SO4 HFA INHALER IH ONE (10:51)
[2020-07-25] MEDS ORDERED: MONTELUKAST NA 10 MG TABLET PO ONE (10:51)
[2020-07-25 11:00] LABS: CALCIUM 8.4 mg/dL (8.5-10.1)
[2020-07-25 11:04] LABS: CREATININE 1.7 mg/dL (0.55-1.3)
[2020-07-25 11:05] LABS: BILIRUBIN,TOTAL 0.8 mg/dL (0.2-1); TOT PROT 5.8 g/dl (6.4-8.2)
[2020-07-25] MEDS ORDERED: SODIUM CHLORIDE 1,000 ML IV SCH (11:15)
[2020-07-25] MEDS ORDERED: BUDESONIDE/FORMETEROL FUMARATE 160/4.5 mcg INHALER IH SCH (13:00)
[2020-07-25 18:55] VITALS: TEMP 98.4
[2020-07-25 19:04] VITALS: BP 129/53; PULSE 67
== END 2020-07-25 16:30 | disposition home or self-care (01) ==
LOC: JONCCHEMO 07:17
PROVIDERS: ATTEND Internal Medicine Hematology & Oncology
PROC: 3E01305 Introduction of Other Antineoplastic into Subcutaneous Tissue, Percutaneous Approach (ICD-10-PCS; principal; 2020-07-25)
PROC: 3E033GC Introduction of Other Therapeutic Substance into Peripheral Vein, Percutaneous Approach (ICD-10-PCS; 2020-07-25)
PROC: 3E033GC Introduction of Other Therapeutic Substance into Peripheral Vein, Percutaneous Approach (ICD-10-PCS; 2020-07-25)
DX: Z51.11 Encounter for antineoplastic chemotherapy (principal); C90.00 Multiple myeloma not having achieved remission
CPT/HCPCS: 36415; 80053; 85025; 96361; 96365; 96366; 96401; J9144

== ENCOUNTER 2020-08-01 07:53 | Day surgery (SDC) | payer OTHER, MEDICARE ==
[2020-08-01 09:10] LABS: BASO % 1.5 % (0-2.0); EOS % 5.7 % (0-4.5); HEMATOCRIT 31.8 % (35.4-49); HEMOGLOBIN 10.7 GM/dL (11.7-16.9); LYMPH % 17.3 % (8-40); MCH 32.3 pg (25.7-33.7); MCHC 33.7 g/dl (32.0-35.9); MEAN CELL VOLUME 95.7 fl (80-96); MEAN PLT VOLUME 8.2 fl (7.5-11.1); MONO % 11.4 % (3.8-10.2); NEUT % 64.1 % (42.8-82.8); PLATELET COUNT 165 10^3/uL (134-434); RBC 3.32 M/mm3 (4.00-5.60); RDW 19.3 % (11.9-15.9)
[2020-08-01 09:26] LABS: ALBUMIN 3.2 g/dl (3.4-5.0); BLOOD UREA NITROGEN 23.5 mg/dL (7-18)
[2020-08-01] MEDS ORDERED: ACETAMINOPHEN 325 MG TABLET (FP) PO ONE (09:30)
[2020-08-01] MEDS ORDERED: DEXAMETHASONE SODIUM PHOSPHATE 20 MG, DIPHENHYDRAMINE 25 MG in SODIUM CHLORIDE 100 ML IVPB ONE (09:30)
[2020-08-01] MEDS ORDERED: FAMOTIDINE 20 MG/50 ML IVPB 20 MG/50 ML MG IVPB ONE (09:30)
[2020-08-01 09:31] LABS: BILIRUBIN,TOTAL 0.4 mg/dL (0.2-1); TOT PROT 5.8 g/dl (6.4-8.2)
[2020-08-01] MEDS ORDERED: MONTELUKAST NA 10 MG TABLET PO ONE (09:53)
[2020-08-01] MEDS ORDERED: ALBUTEROL SO4 HFA INHALER IH ONE (09:53)
[2020-08-01] MEDS ORDERED: BUDESONIDE/FORMETEROL FUMARATE 160/4.5 mcg INHALER IH ONE (09:54)
[2020-08-01] MEDS ORDERED: DARATUMUMAB-HYALURONIDASE-FIHJ (FASPRO) 15 ML VIAL SQ ONE (10:00)
[2020-08-01] MEDS ORDERED: SODIUM CHLORIDE 1,000 ML IV SCH (10:00)
[2020-08-01 16:40] VITALS: TEMP 97.8
[2020-08-01 16:49] VITALS: BP 141/56; PULSE 74
[2020-08-02 17:07] LABS: HEP B CORE AB, TOT Negative (Negative)
== END 2020-08-01 14:30 | disposition home or self-care (01) ==
LOC: JONCCHEMO 07:53
PROVIDERS: ATTEND Internal Medicine Hematology & Oncology
PROC: 3E01305 Introduction of Other Antineoplastic into Subcutaneous Tissue, Percutaneous Approach (ICD-10-PCS; principal; 2020-08-01)
PROC: 3E033GC Introduction of Other Therapeutic Substance into Peripheral Vein, Percutaneous Approach (ICD-10-PCS; 2020-08-01)
PROC: 3E033GC Introduction of Other Therapeutic Substance into Peripheral Vein, Percutaneous Approach (ICD-10-PCS; 2020-08-01)
DX: Z51.11 Encounter for antineoplastic chemotherapy (principal); C90.00 Multiple myeloma not having achieved remission
CPT/HCPCS: 36415; 80053; 85025; 86704; 86706; 86707; 86708; 86709; 87340; 87517; 96361; 96365; 96375; 96401; J9144

== ENCOUNTER 2020-08-08 07:18 | Day surgery (SDC) | payer OTHER, MEDICARE ==
[2020-08-08 08:51] LABS: BASO % 0.4 % (0-2.0); EOS % 2.4 % (0-4.5); HEMATOCRIT 32.2 % (35.4-49); LYMPH % 12.6 % (8-40); MCH 33.1 pg (25.7-33.7); MCHC 34.3 g/dl (32.0-35.9); MEAN CELL VOLUME 96.6 fl (80-96); MEAN PLT VOLUME 7.8 fl (7.5-11.1); MONO % 13.6 % (3.8-10.2); PLATELET COUNT 120 10^3/uL (134-434); RBC 3.34 M/mm3 (4.00-5.60); RDW 20.4 % (11.9-15.9); WHITE BLOOD COUNT 3.3 K/mm3 (4.0-10.0)
[2020-08-08 09:11] LABS: CHLORIDE 108 mmol/L (98-107); SODIUM 139 mmol/L (136-145)
[2020-08-08 09:13] LABS: CALCIUM 8.9 mg/dL (8.5-10.1)
[2020-08-08 09:14] LABS: ALBUMIN 3.3 g/dl (3.4-5.0); ANION GAP 7 MMOL/L (8-16); BLOOD UREA NITROGEN 19.3 mg/dL (7-18); CO2 24 mmol/L (21-32); GLUCOSE,RANDOM 105 mg/dL (74-106)
[2020-08-08 09:17] LABS: CREATININE 1.5 mg/dL (0.55-1.3); SGOT/AST 8 U/L (15-37); SGPT/ALT < 6 U/L (13-61)
[2020-08-08 09:19] LABS: TOT PROT 5.6 g/dl (6.4-8.2)
[2020-08-08 09:20] LABS: ALK PHOS 96 U/L (45-117)
[2020-08-08 09:21] LABS: BILIRUBIN,TOTAL 0.7 mg/dL (0.2-1)
[2020-08-08] MEDS ORDERED: ACETAMINOPHEN 325 MG TABLET (FP) PO ONE (09:30)
[2020-08-08] MEDS ORDERED: FAMOTIDINE 20 MG/50 ML IVPB 20 MG/50 ML MG IVPB ONE (09:30)
[2020-08-08] MEDS ORDERED: DEXAMETHASONE SODIUM PHOSPHATE 20 MG, DIPHENHYDRAMINE 25 MG in SODIUM CHLORIDE 100 ML IVPB ONE (09:30)
[2020-08-08] MEDS ORDERED: DARATUMUMAB-HYALURONIDASE-FIHJ (FASPRO) 15 ML VIAL SQ ONE (10:00)
[2020-08-08 16:39] VITALS: TEMP 98.3
[2020-08-08 16:44] VITALS: BP 134/92; PULSE 76
[2020-08-09 17:07] LABS: FREE KAPPA,SERUM 21.7 mg/L (3.3-19.4)
== END 2020-08-08 13:30 | disposition home or self-care (01) ==
LOC: JONCCHEMO 07:18
PROVIDERS: ATTEND Internal Medicine Hematology & Oncology
PROC: 3E01305 Introduction of Other Antineoplastic into Subcutaneous Tissue, Percutaneous Approach (ICD-10-PCS; principal; 2020-08-08)
PROC: 3E033GC Introduction of Other Therapeutic Substance into Peripheral Vein, Percutaneous Approach (ICD-10-PCS; 2020-08-08)
DX: Z51.11 Encounter for antineoplastic chemotherapy (principal); C90.00 Multiple myeloma not having achieved remission
CPT/HCPCS: 36415; 80053; 82784; 83883; 85025; 96365; 96401; J9144

== ENCOUNTER 2020-08-15 07:03 | Day surgery (SDC) | payer OTHER ==
[2020-08-15 09:18] LABS: BASO % 0.2 % (0-2.0); EOS % 0.4 % (0-4.5); HEMATOCRIT 31.9 % (35.4-49); HEMOGLOBIN 10.7 GM/dL (11.7-16.9); LYMPH % 7.7 % (8-40); MCH 33.2 pg (25.7-33.7); MCHC 33.7 g/dl (32.0-35.9); MEAN CELL VOLUME 98.4 fl (80-96); MEAN PLT VOLUME 8.6 fl (7.5-11.1); MONO % 10.5 % (3.8-10.2); NEUT % 81.2 % (42.8-82.8); PLATELET COUNT 96 10^3/uL (134-434); RBC 3.24 M/mm3 (4.00-5.60); RDW 21.1 % (11.9-15.9); WHITE BLOOD COUNT 4.4 K/mm3 (4.0-10.0)
[2020-08-15] MEDS ORDERED: FAMOTIDINE 20 MG/50 ML IVPB 20 MG/50 ML MG IVPB ONE (09:30)
[2020-08-15] MEDS ORDERED: DEXAMETHASONE SODIUM PHOSPHATE 20 MG, DIPHENHYDRAMINE 25 MG in SODIUM CHLORIDE 100 ML IVPB ONE (09:30)
[2020-08-15] MEDS ORDERED: ACETAMINOPHEN 325 MG TABLET (FP) PO ONE (09:30)
[2020-08-15 09:33] LABS: CALCIUM 8.3 mg/dL (8.5-10.1)
[2020-08-15 09:34] LABS: ALBUMIN 3.1 g/dl (3.4-5.0); BLOOD UREA NITROGEN 15.9 mg/dL (7-18)
[2020-08-15 09:37] LABS: CREATININE 1.3 mg/dL (0.55-1.3)
[2020-08-15 09:38] LABS: BILIRUBIN,TOTAL 0.9 mg/dL (0.2-1)
[2020-08-15 09:39] LABS: TOT PROT 5.4 g/dl (6.4-8.2)
[2020-08-15] MEDS ORDERED: DARATUMUMAB-HYALURONIDASE-FIHJ (FASPRO) 15 ML VIAL SQ ONE (10:00)
[2020-08-15 11:04] LABS: ANISOCYTOSIS 1+; MACROCYTOSIS 0; PLATELET ESTIMATE DECREASED
[2020-08-15] MEDS ORDERED: BUDESONIDE/FORMETEROL FUMARATE 160/4.5 mcg INHALER IH ONE (12:00)
[2020-08-15] MEDS ORDERED: ALBUTEROL SO4 HFA INHALER IH ONE (12:00)
[2020-08-15 15:36] VITALS: TEMP 98.2
[2020-08-15 15:37] VITALS: BP 146/67; PULSE 72
== END 2020-08-15 13:00 | disposition home or self-care (01) ==
LOC: JONCCHEMO 07:03
PROVIDERS: ATTEND Internal Medicine Hematology & Oncology
PROC: 3E01305 Introduction of Other Antineoplastic into Subcutaneous Tissue, Percutaneous Approach (ICD-10-PCS; principal; 2020-08-15)
PROC: 3E033GC Introduction of Other Therapeutic Substance into Peripheral Vein, Percutaneous Approach (ICD-10-PCS; 2020-08-15)
PROC: 3E033GC Introduction of Other Therapeutic Substance into Peripheral Vein, Percutaneous Approach (ICD-10-PCS; 2020-08-15)
DX: Z51.11 Encounter for antineoplastic chemotherapy (principal); C90.00 Multiple myeloma not having achieved remission
CPT/HCPCS: 36415; 80053; 85025; 96365; 96367; 96401; J9144

== ENCOUNTER 2020-08-22 07:15 | Day surgery (SDC) | payer OTHER ==
[2020-08-22 09:51] LABS: BASO % 0.3 % (0-2.0); HEMATOCRIT 33.1 % (35.4-49); HEMOGLOBIN 11.1 GM/dL (11.7-16.9); LYMPH % 12.5 % (8-40); MCH 33.3 pg (25.7-33.7); MCHC 33.6 g/dl (32.0-35.9); MEAN CELL VOLUME 98.9 fl (80-96); MEAN PLT VOLUME 8.1 fl (7.5-11.1); MONO % 9.6 % (3.8-10.2); NEUT % 76.6 % (42.8-82.8); PLATELET COUNT 116 10^3/uL (134-434); RBC 3.35 M/mm3 (4.00-5.60); WHITE BLOOD COUNT 4.3 K/mm3 (4.0-10.0)
[2020-08-22] MEDS ORDERED: FAMOTIDINE 20 MG/50 ML IVPB 20 MG/50 ML MG IVPB ONE (10:00)
[2020-08-22] MEDS ORDERED: ACETAMINOPHEN 325 MG TABLET (FP) PO ONE (10:00)
[2020-08-22] MEDS ORDERED: DEXAMETHASONE SODIUM PHOSPHATE 20 MG, DIPHENHYDRAMINE 25 MG in SODIUM CHLORIDE 100 ML IVPB ONE (10:00)
[2020-08-22 10:12] LABS: ALBUMIN 3.1 g/dl (3.4-5.0); BLOOD UREA NITROGEN 18.6 mg/dL (7-18); CALCIUM 8.4 mg/dL (8.5-10.1)
[2020-08-22 10:15] LABS: CREATININE 1.5 mg/dL (0.55-1.3)
[2020-08-22 10:17] LABS: BILIRUBIN,TOTAL 1.1 mg/dL (0.2-1); TOT PROT 5.5 g/dl (6.4-8.2)
[2020-08-22] MEDS ORDERED: DARATUMUMAB-HYALURONIDASE-FIHJ (FASPRO) 15 ML VIAL SQ ONE (10:30)
[2020-08-22 10:43] LABS: ANISOCYTOSIS 2+; MACROCYTOSIS 1+; OVALOCYTE 1+; PLATELET ESTIMATE DECREASED
[2020-08-22 16:34] VITALS: TEMP 98
[2020-08-22 16:59] VITALS: BP 115/61; PULSE 76
== END 2020-08-22 14:40 | disposition home or self-care (01) ==
LOC: JONCCHEMO 07:15
PROVIDERS: ATTEND Internal Medicine Hematology & Oncology
PROC: 3E01305 Introduction of Other Antineoplastic into Subcutaneous Tissue, Percutaneous Approach (ICD-10-PCS; principal; 2020-08-22)
PROC: 3E033GC Introduction of Other Therapeutic Substance into Peripheral Vein, Percutaneous Approach (ICD-10-PCS; 2020-08-22)
DX: Z51.11 Encounter for antineoplastic chemotherapy (principal); C90.00 Multiple myeloma not having achieved remission
CPT/HCPCS: 36415; 80053; 83735; 85025; 96365; 96401; J9144

== ENCOUNTER 2020-08-30 05:16 | Day surgery (SDC) | payer OTHER ==
[2020-08-30 09:31] LABS: BASO % 0.3 % (0-2.0); EOS % 1.9 % (0-4.5); HEMATOCRIT 31.6 % (35.4-49); HEMOGLOBIN 10.6 GM/dL (11.7-16.9); LYMPH % 9.4 % (8-40); MCH 33.6 pg (25.7-33.7); MCHC 33.6 g/dl (32.0-35.9); MEAN CELL VOLUME 100.1 fl (80-96); MEAN PLT VOLUME 9.2 fl (7.5-11.1); MONO % 6.8 % (3.8-10.2); NEUT % 81.6 % (42.8-82.8); PLATELET COUNT 95 10^3/uL (134-434); RBC 3.15 M/mm3 (4.00-5.60); WHITE BLOOD COUNT 4.5 K/mm3 (4.0-10.0)
[2020-08-30 09:48] LABS: CHLORIDE 111 mmol/L (98-107); SODIUM 143 mmol/L (136-145)
[2020-08-30 09:50] LABS: CALCIUM 7.7 mg/dL (8.5-10.1)
[2020-08-30 09:51] LABS: ALBUMIN 2.8 g/dl (3.4-5.0); ANION GAP 6 MMOL/L (8-16); BLOOD UREA NITROGEN 14.9 mg/dL (7-18); CO2 26 mmol/L (21-32); GLUCOSE,RANDOM 82 mg/dL (74-106)
[2020-08-30 09:54] LABS: CREATININE 1.5 mg/dL (0.55-1.3); SGOT/AST 5 U/L (15-37); SGPT/ALT < 6 U/L (13-61)
[2020-08-30 09:56] LABS: BILIRUBIN,TOTAL 0.6 mg/dL (0.2-1)
[2020-08-30 09:57] LABS: ALK PHOS 86 U/L (45-117)
[2020-08-30] MEDS ORDERED: ACETAMINOPHEN 325 MG TABLET (FP) PO ONE (10:00)
[2020-08-30] MEDS ORDERED: DEXAMETHASONE SODIUM PHOSPHATE 20 MG, DIPHENHYDRAMINE 25 MG in SODIUM CHLORIDE 100 ML IVPB ONE (10:00)
[2020-08-30] MEDS ORDERED: FAMOTIDINE 20 MG/50 ML IVPB 20 MG/50 ML MG IVPB ONE (10:00)
[2020-08-30] MEDS ORDERED: DARATUMUMAB-HYALURONIDASE-FIHJ (FASPRO) 15 ML VIAL SQ ONE (10:30)
[2020-08-30 16:49] VITALS: TEMP 98.3
[2020-08-30 16:51] VITALS: BP 144/57; PULSE 74
== END 2020-08-30 15:45 | disposition home or self-care (01) ==
LOC: JONCCHEMO 05:16
PROVIDERS: ATTEND Internal Medicine Hematology & Oncology
PROC: 3E01305 Introduction of Other Antineoplastic into Subcutaneous Tissue, Percutaneous Approach (ICD-10-PCS; principal; 2020-08-30)
PROC: 3E033GC Introduction of Other Therapeutic Substance into Peripheral Vein, Percutaneous Approach (ICD-10-PCS; 2020-08-30)
DX: Z51.11 Encounter for antineoplastic chemotherapy (principal); C90.00 Multiple myeloma not having achieved remission
CPT/HCPCS: 36415; 80053; 85025; 96365; 96401; J9144

== ENCOUNTER 2020-09-06 07:00 | Day surgery (SDC) | payer OTHER ==
[2020-09-06] MEDS ORDERED: ACETAMINOPHEN 325 MG TABLET (FP) PO ONE (10:00)
[2020-09-06] MEDS ORDERED: FAMOTIDINE 20 MG/50 ML IVPB 20 MG/50 ML MG IVPB ONE (10:00)
[2020-09-06] MEDS ORDERED: DEXAMETHASONE SODIUM PHOSPHATE 20 MG, DIPHENHYDRAMINE 25 MG in SODIUM CHLORIDE 100 ML IVPB ONE (10:00)
[2020-09-06] MEDS ORDERED: DARATUMUMAB-HYALURONIDASE-FIHJ (FASPRO) 15 ML VIAL SQ ONE (10:30)
[2020-09-06 10:56] LABS: BASO % 0.3 % (0-2.0); EOS % 5.2 % (0-4.5); HEMATOCRIT 32.2 % (35.4-49); MCH 34.3 pg (25.7-33.7); MEAN CELL VOLUME 100.8 fl (80-96); MEAN PLT VOLUME 9.7 fl (7.5-11.1); MONO % 14.2 % (3.8-10.2); NEUT % 71.3 % (42.8-82.8); PLATELET COUNT 67 10^3/uL (134-434); RDW 20.5 % (11.9-15.9); WHITE BLOOD COUNT 4.2 K/mm3 (4.0-10.0)
[2020-09-06 11:11] LABS: CALCIUM 8.2 mg/dL (8.5-10.1)
[2020-09-06 11:12] LABS: ALBUMIN 2.8 g/dl (3.4-5.0)
[2020-09-06 11:16] LABS: BILIRUBIN,TOTAL 0.6 mg/dL (0.2-1); CREATININE 1.4 mg/dL (0.55-1.3); TOT PROT 5.2 g/dl (6.4-8.2)
[2020-09-06 11:43] LABS: ANISOCYTOSIS 1+; MACROCYTOSIS 1+; OVALOCYTE 1+; PLATELET ESTIMATE DECREASED
[2020-09-06 16:39] VITALS: TEMP 98.5
[2020-09-06 17:39] VITALS: BP 101/52; PULSE 62
== END 2020-09-06 15:15 | disposition home or self-care (01) ==
LOC: JONCCHEMO 07:00
PROVIDERS: ATTEND Internal Medicine Hematology & Oncology
PROC: 3E01305 Introduction of Other Antineoplastic into Subcutaneous Tissue, Percutaneous Approach (ICD-10-PCS; principal; 2020-09-06)
PROC: 3E033GC Introduction of Other Therapeutic Substance into Peripheral Vein, Percutaneous Approach (ICD-10-PCS; 2020-09-06)
DX: Z51.11 Encounter for antineoplastic chemotherapy (principal); C90.00 Multiple myeloma not having achieved remission
CPT/HCPCS: 36415; 80053; 85025; 96365; 96401; J9144

== ENCOUNTER 2020-09-13 07:02 | Day surgery (SDC) | payer OTHER, MEDICARE ==
[2020-09-13] MEDS ORDERED: ACETAMINOPHEN 325 MG TABLET (FP) PO ONE (10:00)
[2020-09-13] MEDS ORDERED: DEXAMETHASONE SODIUM PHOSPHATE 20 MG, DIPHENHYDRAMINE 25 MG in SODIUM CHLORIDE 100 ML IVPB ONE (10:00)
[2020-09-13] MEDS ORDERED: FAMOTIDINE 20 MG/50 ML IVPB 20 MG/50 ML MG IVPB ONE (10:00)
[2020-09-13] MEDS ORDERED: DARATUMUMAB-HYALURONIDASE-FIHJ (FASPRO) 15 ML VIAL SQ ONE (10:30)
[2020-09-13 10:44] LABS: BASO % 0.6 % (0-2.0); EOS % 4.6 % (0-4.5); HEMATOCRIT 30.1 % (35.4-49); HEMOGLOBIN 10.4 GM/dL (11.7-16.9); LYMPH % 10.5 % (8-40); MCHC 34.6 g/dl (32.0-35.9); MEAN CELL VOLUME 101.1 fl (80-96); MEAN PLT VOLUME 8.1 fl (7.5-11.1); MONO % 18.5 % (3.8-10.2); NEUT % 65.8 % (42.8-82.8); PLATELET COUNT 116 10^3/uL (134-434); RBC 2.98 M/mm3 (4.00-5.60); RDW 20.1 % (11.9-15.9); WHITE BLOOD COUNT 3.9 K/mm3 (4.0-10.0)
[2020-09-13 11:04] LABS: ALBUMIN 2.7 g/dl (3.4-5.0); BLOOD UREA NITROGEN 12.4 mg/dL (7-18); CALCIUM 7.6 mg/dL (8.5-10.1)
[2020-09-13 11:07] LABS: CREATININE 1.2 mg/dL (0.55-1.3)
[2020-09-13 11:09] LABS: BILIRUBIN,TOTAL 0.4 mg/dL (0.2-1)
[2020-09-13 17:51] VITALS: BP 134/63; PULSE 76; TEMP 98.5
== END 2020-09-13 14:40 | disposition home or self-care (01) ==
LOC: JONCCHEMO 07:02
PROVIDERS: ATTEND Internal Medicine Hematology & Oncology
DX: Z51.11 Encounter for antineoplastic chemotherapy (principal); C90.00 Multiple myeloma not having achieved remission
CPT/HCPCS: 36415; 80053; 83615; 84439; 84443; 85025; 87517; 96401; J9144

== ENCOUNTER 2020-09-27 07:23 | Day surgery (SDC) | payer OTHER ==
[2020-09-27] MEDS ORDERED: ACETAMINOPHEN 325 MG TABLET (FP) PO ONE (09:30)
[2020-09-27] MEDS ORDERED: FAMOTIDINE 20 MG/50 ML IVPB 20 MG/50 ML MG IVPB ONE (09:30)
[2020-09-27] MEDS ORDERED: DEXAMETHASONE SODIUM PHOSPHATE 20 MG, DIPHENHYDRAMINE 25 MG in SODIUM CHLORIDE 100 ML IVPB ONE (09:30)
[2020-09-27] MEDS ORDERED: DARATUMUMAB-HYALURONIDASE-FIHJ (FASPRO) 15 ML VIAL SQ ONE (10:00)
[2020-09-27 11:22] LABS: BASO % 0.5 % (0-2.0); HEMATOCRIT 29.1 % (35.4-49); HEMOGLOBIN 10.1 GM/dL (11.7-16.9); LYMPH % 9.9 % (8-40); MCH 35.4 pg (25.7-33.7); MCHC 34.8 g/dl (32.0-35.9); MEAN CELL VOLUME 101.7 fl (80-96); MEAN PLT VOLUME 8.5 fl (7.5-11.1); MONO % 11.2 % (3.8-10.2); NEUT % 74.4 % (42.8-82.8); PLATELET COUNT 85 10^3/uL (134-434); RBC 2.86 M/mm3 (4.00-5.60); RDW 18.6 % (11.9-15.9); WHITE BLOOD COUNT 5.9 K/mm3 (4.0-10.0)
[2020-09-27 11:34] LABS: CALCIUM 7.5 mg/dL (8.5-10.1)
[2020-09-27 11:35] LABS: ALBUMIN 2.7 g/dl (3.4-5.0); BLOOD UREA NITROGEN 12.7 mg/dL (7-18)
[2020-09-27 11:38] LABS: CREATININE 1.2 mg/dL (0.55-1.3)
[2020-09-27 11:40] LABS: BILIRUBIN,TOTAL 0.5 mg/dL (0.2-1)
[2020-09-27 18:01] VITALS: TEMP 98.4
[2020-09-27 18:02] VITALS: BP 110/71; PULSE 71
[2020-09-28 17:10] LABS: FREE KAPPA,SERUM 18.7 mg/L (3.3-19.4)
== END 2020-09-27 18:06 | disposition home or self-care (01) ==
LOC: JONCCHEMO 07:23
PROVIDERS: ATTEND Internal Medicine Hematology & Oncology
PROC: 3E01305 Introduction of Other Antineoplastic into Subcutaneous Tissue, Percutaneous Approach (ICD-10-PCS; principal; 2020-09-27)
PROC: 3E043GC Introduction of Other Therapeutic Substance into Central Vein, Percutaneous Approach (ICD-10-PCS; 2020-09-27)
DX: Z51.11 Encounter for antineoplastic chemotherapy (principal); C90.00 Multiple myeloma not having achieved remission
CPT/HCPCS: 36415; 80053; 82784; 83883; 85025; 96365; 96401; J9144

== ENCOUNTER 2020-10-11 07:31 | Day surgery (SDC) | payer OTHER ==
[2020-10-11] MEDS ORDERED: FAMOTIDINE 20 MG/50 ML IVPB 20 MG/50 ML MG IVPB ONE (09:30)
[2020-10-11] MEDS ORDERED: DEXAMETHASONE SODIUM PHOSPHATE 20 MG, DIPHENHYDRAMINE 25 MG in SODIUM CHLORIDE 100 ML IVPB ONE (09:30)
[2020-10-11] MEDS ORDERED: ACETAMINOPHEN 325 MG TABLET (FP) PO ONE (09:30)
[2020-10-11] MEDS ORDERED: DARATUMUMAB-HYALURONIDASE-FIHJ (FASPRO) 15 ML VIAL SQ ONE (10:00)
[2020-10-11 11:00] LABS: BASO % 0.3 % (0-2.0); EOS % 6.2 % (0-4.5); HEMOGLOBIN 9.9 GM/dL (11.7-16.9); LYMPH % 6.8 % (8-40); MCH 35.7 pg (25.7-33.7); MCHC 35.4 g/dl (32.0-35.9); MEAN CELL VOLUME 100.8 fl (80-96); MEAN PLT VOLUME 9.5 fl (7.5-11.1); MONO % 16.5 % (3.8-10.2); NEUT % 70.2 % (42.8-82.8); PLATELET COUNT 64 10^3/uL (134-434); RBC 2.78 M/mm3 (4.00-5.60); RDW 17.2 % (11.9-15.9); WHITE BLOOD COUNT 6.3 K/mm3 (4.0-10.0)
[2020-10-11 11:17] LABS: CHLORIDE 111 mmol/L (98-107); SODIUM 143 mmol/L (136-145)
[2020-10-11 11:20] LABS: ALBUMIN 2.8 g/dl (3.4-5.0); BLOOD UREA NITROGEN 12.7 mg/dL (7-18); CO2 27 mmol/L (21-32); GLUCOSE,RANDOM 83 mg/dL (74-106)
[2020-10-11 11:23] LABS: CREATININE 1.3 mg/dL (0.55-1.3); SGOT/AST 9 U/L (15-37); SGPT/ALT 9 U/L (13-61)
[2020-10-11 11:25] LABS: ALK PHOS 82 U/L (45-117); BILIRUBIN,TOTAL 0.7 mg/dL (0.2-1); TOT PROT 5.1 g/dl (6.4-8.2)
[2020-10-11 11:32] LABS: ANION GAP 5 MMOL/L (8-16); CALCIUM 6.9 mg/dL (8.5-10.1)
[2020-10-11] MEDS ORDERED: CALCIUM GLUCONATE 10% - 1,000 MG/10 ML VIAL IVPB ONE (12:05)
[2020-10-11] MEDS ORDERED: POTASSIUM CHLORIDE TABS 10 MEQ TABLET.ER (FP) PO ONE (12:06)
[2020-10-11] MEDS ORDERED: CALCIUM GLUC IN NACL, ISO-OSM 1 GM/50 ML BAG IVPB ONE (12:15)
[2020-10-11] MEDS ORDERED: KCL 10 MEQ IVPB 10 MEQ/100 ML INFUS.BAG IVPB SCH (12:15)
[2020-10-11 16:52] VITALS: TEMP 98.3
[2020-10-11 16:57] VITALS: BP 122/57; PULSE 62
== END 2020-10-11 16:15 | disposition home or self-care (01) ==
LOC: JONCCHEMO 07:31
PROVIDERS: ATTEND Internal Medicine Hematology & Oncology
PROC: 3E01305 Introduction of Other Antineoplastic into Subcutaneous Tissue, Percutaneous Approach (ICD-10-PCS; principal; 2020-10-11)
PROC: 3E033GC Introduction of Other Therapeutic Substance into Peripheral Vein, Percutaneous Approach (ICD-10-PCS; 2020-10-11)
PROC: 3E033GC Introduction of Other Therapeutic Substance into Peripheral Vein, Percutaneous Approach (ICD-10-PCS; 2020-10-11)
DX: Z51.11 Encounter for antineoplastic chemotherapy (principal)
CPT/HCPCS: 36415; 80053; 85025; 96365; 96366; 96367; 96401; J9144

== ENCOUNTER 2020-11-01 07:32 | Day surgery (SDC) | payer OTHER ==
[~2020-11-01 07:32] MED LIST: ACETAMINOPHEN 325 MG TABLET (FP) PO ONE; DARATUMUMAB-HYALURONIDASE-FIHJ (FASPRO) 15 ML VIAL SQ ONE; DEXAMETHASONE SODIUM PHOSPHATE 20 MG, DIPHENHYDRAMINE 25 MG in SODIUM CHLORIDE 100 ML IVPB ONE; FAMOTIDINE 20 MG/50 ML IVPB 20 MG/50 ML MG IVPB ONE
[2020-11-01 10:10] LABS: BASO % 0.9 % (0-2.0); EOS % 3.9 % (0-4.5); HEMATOCRIT 30.3 % (35.4-49); HEMOGLOBIN 10.5 GM/dL (11.7-16.9); LYMPH % 9.9 % (8-40); MCHC 34.6 g/dl (32.0-35.9); MEAN PLT VOLUME 7.9 fl (7.5-11.1); MONO % 15.2 % (3.8-10.2); NEUT % 70.1 % (42.8-82.8); PLATELET COUNT 62 10^3/uL (134-434); RDW 15.5 % (11.9-15.9); WHITE BLOOD COUNT 4.6 K/mm3 (4.0-10.0)
[2020-11-01 10:28] LABS: CALCIUM 8.1 mg/dL (8.5-10.1)
[2020-11-01 10:30] LABS: BLOOD UREA NITROGEN 20.5 mg/dL (7-18)
[2020-11-01 10:32] LABS: CREATININE 1.5 mg/dL (0.55-1.3)
[2020-11-01 10:33] LABS: BILIRUBIN,TOTAL 0.7 mg/dL (0.2-1)
[2020-11-01 10:35] LABS: TOT PROT 5.5 g/dl (6.4-8.2)
[2020-11-01] MEDS ORDERED: FAMOTIDINE 20 MG/50 ML IVPB 20 MG/50 ML MG IVPB ONE (12:00)
[2020-11-01] MEDS ORDERED: DEXAMETHASONE INJECTION 20 MG, DIPHENHYDRAMINE 25 MG in SODIUM CHLORIDE 100 ML IVPB ONE (12:00)
[2020-11-01] MEDS ORDERED: ACETAMINOPHEN 325 MG TABLET (FP) PO ONE (12:00)
[2020-11-01] MEDS ORDERED: DARATUMUMAB-HYALURONIDASE-FIHJ (FASPRO) 15 ML VIAL SQ ONE (12:30)
[2020-11-01 16:27] VITALS: BP 165/74; PULSE 72; TEMP 98.3
[2020-11-03 18:07] LABS: FREE KAPPA,SERUM 25.5 mg/L (3.3-19.4)
== END 2020-11-01 13:40 | disposition home or self-care (01) ==
LOC: JONCCHEMO 07:32
PROVIDERS: ATTEND Internal Medicine Hematology & Oncology
PROC: 3E01305 Introduction of Other Antineoplastic into Subcutaneous Tissue, Percutaneous Approach (ICD-10-PCS; principal; 2020-11-01)
PROC: 3E033GC Introduction of Other Therapeutic Substance into Peripheral Vein, Percutaneous Approach (ICD-10-PCS; 2020-11-01)
DX: Z51.11 Encounter for antineoplastic chemotherapy (principal); C90.00 Multiple myeloma not having achieved remission
CPT/HCPCS: 36415; 80053; 83883; 85025; 96365; 96401; J1100; J9144

== ENCOUNTER 2020-11-15 08:58 | Day surgery (SDC) | payer OTHER ==
[2020-11-15 10:00] LABS: BASO % 0.1 % (0-2.0); EOS % 5.3 % (0-4.5); HEMATOCRIT 28.4 % (35.4-49); HEMOGLOBIN 9.9 GM/dL (11.7-16.9); LYMPH % 6.9 % (8-40); MCH 35.5 pg (25.7-33.7); MCHC 34.9 g/dl (32.0-35.9); MEAN CELL VOLUME 101.9 fl (80-96); MEAN PLT VOLUME 10.4 fl (7.5-11.1); MONO % 14.5 % (3.8-10.2); NEUT % 73.2 % (42.8-82.8); PLATELET COUNT 44 10^3/uL (134-434); RBC 2.79 M/mm3 (4.00-5.60); WHITE BLOOD COUNT 5.9 K/mm3 (4.0-10.0)
[2020-11-15 10:18] LABS: CHLORIDE 112 mmol/L (98-107); SODIUM 144 mmol/L (136-145)
[2020-11-15 10:20] LABS: CALCIUM 7.9 mg/dL (8.5-10.1)
[2020-11-15 10:21] LABS: ANION GAP 8 MMOL/L (8-16); CO2 24 mmol/L (21-32); GLUCOSE,RANDOM 82 mg/dL (74-106)
[2020-11-15 10:24] LABS: CREATININE 1.5 mg/dL (0.55-1.3); SGOT/AST 5 U/L (15-37); SGPT/ALT < 6 U/L (13-61)
[2020-11-15 10:25] LABS: BLOOD UREA NITROGEN 15.8 mg/dL (7-18)
[2020-11-15 10:26] LABS: TOT PROT 5.5 g/dl (6.4-8.2)
[2020-11-15 10:27] LABS: ALK PHOS 88 U/L (45-117)
== END 2020-11-15 12:00 | disposition home or self-care (01) ==
LOC: JONCCHEMO 08:58
PROVIDERS: ATTEND Internal Medicine Hematology & Oncology
DX: Z53.8 Procedure and treatment not carried out for other reasons (principal)
CPT/HCPCS: 36415; 80053; 82784; 83883; 84155; 84165; 85025; 86704; 86705; 86706; 86708; 87340; 87517; 96365

== ENCOUNTER → 2020-11-22 | Day surgery (SDC) | payer OTHER ==
[2020-11-22 11:33] LABS: BASO % 0.6 % (0-2.0); EOS % 5.2 % (0-4.5); HEMOGLOBIN 9.7 GM/dL (11.7-16.9); LYMPH % 9.4 % (8-40); MCH 35.1 pg (25.7-33.7); MCHC 34.7 g/dl (32.0-35.9); MEAN CELL VOLUME 101.1 fl (80-96); MEAN PLT VOLUME 10.9 fl (7.5-11.1); MONO % 16.9 % (3.8-10.2); NEUT % 67.9 % (42.8-82.8); PLATELET COUNT 48 10^3/uL (134-434); RBC 2.77 M/mm3 (4.00-5.60); RDW 15.9 % (11.9-15.9); WHITE BLOOD COUNT 3.6 K/mm3 (4.0-10.0)
[2020-11-22 11:54] LABS: CHLORIDE 112 mmol/L (98-107); SODIUM 143 mmol/L (136-145)
[2020-11-22 11:57] LABS: ALBUMIN 2.9 g/dl (3.4-5.0); CALCIUM 7.4 mg/dL (8.5-10.1)
[2020-11-22 11:58] LABS: BLOOD UREA NITROGEN 17.6 mg/dL (7-18); CO2 24 mmol/L (21-32); GLUCOSE,RANDOM 105 mg/dL (74-106)
[2020-11-22 12:01] LABS: CREATININE 1.4 mg/dL (0.55-1.3); SGOT/AST 9 U/L (15-37); SGPT/ALT < 6 U/L (13-61)
[2020-11-22 12:02] LABS: BILIRUBIN,TOTAL 0.5 mg/dL (0.2-1); TOT PROT 5.6 g/dl (6.4-8.2)
[2020-11-22 12:04] LABS: ALK PHOS 89 U/L (45-117)
[2020-11-22 12:11] LABS: ANION GAP 7 MMOL/L (8-16)
[2020-11-24 17:06] LABS: FREE KAPPA,SERUM 27.4 mg/L (3.3-19.4)
== END | disposition home or self-care (01) ==
LOC: JONCCHEMO 07:47
PROVIDERS: ATTEND Internal Medicine Hematology & Oncology
DX: Z53.8 Procedure and treatment not carried out for other reasons (principal)
CPT/HCPCS: 36415; 80053; 83883; 85025; 96365

== ENCOUNTER → 2020-11-29 | Day surgery (SDC) | payer OTHER ==
[~2020-11-29] MED LIST changes: +DEXAMETHASONE INJECTION 20 MG, DIPHENHYDRAMINE 25 MG in SODIUM CHLORIDE 100 ML IVPB ONE; -DEXAMETHASONE SODIUM PHOSPHATE 20 MG, DIPHENHYDRAMINE 25 MG in SODIUM CHLORIDE 100 ML IVPB ONE
[2020-11-29 11:31] LABS: BASO % 0.6 % (0-2.0); EOS % 6.1 % (0-4.5); HEMATOCRIT 26.4 % (35.4-49); HEMOGLOBIN 8.9 GM/dL (11.7-16.9); MCH 33.3 pg (25.7-33.7); MCHC 33.8 g/dl (32.0-35.9); MEAN CELL VOLUME 98.8 fl (80-96); MEAN PLT VOLUME 8.9 fl (7.5-11.1); NEUT % 73.3 % (42.8-82.8); PLATELET COUNT 47 10^3/uL (134-434); RBC 2.67 M/mm3 (4.00-5.60); RDW 15.9 % (11.9-15.9); WHITE BLOOD COUNT 3.2 K/mm3 (4.0-10.0)
[2020-11-29 11:50] LABS: CALCIUM 7.7 mg/dL (8.5-10.1)
[2020-11-29 11:51] LABS: ALBUMIN 2.5 g/dl (3.4-5.0); BLOOD UREA NITROGEN 17.5 mg/dL (7-18)
[2020-11-29 11:54] LABS: CREATININE 1.3 mg/dL (0.55-1.3)
[2020-11-29 11:56] LABS: BILIRUBIN,TOTAL 0.9 mg/dL (0.2-1); TOT PROT 5.4 g/dl (6.4-8.2)
== END | disposition home or self-care (01) ==
LOC: JONCCHEMO 07:41
PROVIDERS: ATTEND Internal Medicine Hematology & Oncology
DX: Z53.8 Procedure and treatment not carried out for other reasons (principal)
CPT/HCPCS: 36415; 80053; 85025

== ENCOUNTER → 2020-12-06 | Day surgery (SDC) | payer OTHER ==
[2020-12-06 11:22] LABS: BASO % 0.9 % (0-2.0); EOS % 2.5 % (0-4.5); HEMATOCRIT 24.5 % (35.4-49); HEMOGLOBIN 8.6 GM/dL (11.7-16.9); MCH 33.9 pg (25.7-33.7); MCHC 35.2 g/dl (32.0-35.9); MEAN CELL VOLUME 96.2 fl (80-96); MEAN PLT VOLUME 9.3 fl (7.5-11.1); MONO % 9.4 % (3.8-10.2); NEUT % 83.2 % (42.8-82.8); PLATELET COUNT 60 10^3/uL (134-434); RBC 2.55 M/mm3 (4.00-5.60); RDW 16.1 % (11.9-15.9)
[2020-12-06 11:38] LABS: ALBUMIN 2.2 g/dl (3.4-5.0); CALCIUM 8.5 mg/dL (8.5-10.1)
[2020-12-06 11:41] LABS: CREATININE 1.4 mg/dL (0.55-1.3)
[2020-12-06 11:43] LABS: BILIRUBIN,TOTAL 0.9 mg/dL (0.2-1); TOT PROT 5.2 g/dl (6.4-8.2)
== END | disposition home or self-care (01) ==
LOC: JONCCHEMO 07:21
PROVIDERS: ATTEND Internal Medicine Hematology & Oncology
DX: Z53.8 Procedure and treatment not carried out for other reasons (principal)
CPT/HCPCS: 36415; 80053; 85025

== ENCOUNTER 2020-12-20 08:13 | Day surgery (SDC) | payer OTHER ==
[2020-12-20] MEDS ORDERED: ACETAMINOPHEN 325 MG TABLET (FP) PO ONE (09:30)
[2020-12-20] MEDS ORDERED: DEXAMETHASONE INJECTION 20 MG, DIPHENHYDRAMINE 25 MG in SODIUM CHLORIDE 100 ML IVPB ONE (09:30)
[2020-12-20] MEDS ORDERED: FAMOTIDINE 20 MG/50 ML IVPB 20 MG/50 ML MG IVPB ONE (09:30)
[2020-12-20] MEDS ORDERED: DARATUMUMAB-HYALURONIDASE-FIHJ (FASPRO) 15 ML VIAL SQ ONE (10:00)
[2020-12-20 12:57] LABS: BASO % 0.8 % (0-2.0); EOS % 4.5 % (0-4.5); HEMATOCRIT 25.8 % (35.4-49); HEMOGLOBIN 8.6 GM/dL (11.7-16.9); MCH 32.9 pg (25.7-33.7); MCHC 33.4 g/dl (32.0-35.9); MEAN CELL VOLUME 98.6 fl (80-96); MEAN PLT VOLUME 7.9 fl (7.5-11.1); MONO % 7.8 % (3.8-10.2); NEUT % 75.9 % (42.8-82.8); PLATELET COUNT 47 10^3/uL (134-434); RBC 2.62 M/mm3 (4.00-5.60); RDW 17.3 % (11.9-15.9); WHITE BLOOD COUNT 3.9 K/mm3 (4.0-10.0)
[2020-12-20 13:22] LABS: BLOOD UREA NITROGEN 15.6 mg/dL (7-18); CALCIUM 8.3 mg/dL (8.5-10.1)
[2020-12-20 13:24] LABS: ALBUMIN 2.8 g/dl (3.4-5.0)
[2020-12-20] MEDS ORDERED: POTASSIUM CHLORIDE TABS 20 MEQ TABLET.ER (FP) PO ONE (13:24)
[2020-12-20 13:26] LABS: CREATININE 1.3 mg/dL (0.55-1.3)
[2020-12-20 13:27] LABS: BILIRUBIN,TOTAL 0.7 mg/dL (0.2-1); TOT PROT 5.3 g/dl (6.4-8.2)
[2020-12-20 17:04] VITALS: BP 117/68; PULSE 84; TEMP 98.2
== END 2020-12-20 14:00 | disposition home or self-care (01) ==
LOC: JONCCHEMO 08:13
PROVIDERS: ATTEND Internal Medicine Hematology & Oncology
DX: Z53.8 Procedure and treatment not carried out for other reasons (principal)
CPT/HCPCS: 36415; 80053; 85025

== ENCOUNTER 2021-01-03 07:18 | Day surgery (SDC) | payer OTHER ==
[2021-01-03] MEDS ORDERED: ACETAMINOPHEN 325 MG TABLET (FP) PO ONE (10:00)
[2021-01-03] MEDS ORDERED: DEXAMETHASONE SODIUM PHOSPHATE 20 MG, DIPHENHYDRAMINE 25 MG in SODIUM CHLORIDE 100 ML IVPB ONE (10:00)
[2021-01-03] MEDS ORDERED: FAMOTIDINE 20 MG/50 ML IVPB 20 MG/50 ML MG IVPB ONE (10:00)
[2021-01-03] MEDS ORDERED: DARATUMUMAB-HYALURONIDASE-FIHJ (FASPRO) 15 ML VIAL SQ ONE (10:30)
[2021-01-03 11:39] LABS: BASO % 0.6 % (0-2.0); EOS % 1.6 % (0-4.5); HEMATOCRIT 24.4 % (35.4-49); HEMOGLOBIN 8.2 GM/dL (11.7-16.9); LYMPH % 11.2 % (8-40); MCH 33.5 pg (25.7-33.7); MCHC 33.6 g/dl (32.0-35.9); MEAN CELL VOLUME 99.7 fl (80-96); MEAN PLT VOLUME 8.1 fl (7.5-11.1); MONO % 10.2 % (3.8-10.2); NEUT % 76.4 % (42.8-82.8); PLATELET COUNT 66 10^3/uL (134-434); RBC 2.44 M/mm3 (4.00-5.60); RDW 20.5 % (11.9-15.9); WHITE BLOOD COUNT 4.2 K/mm3 (4.0-10.0)
[2021-01-03 12:03] LABS: BLOOD UREA NITROGEN 17.5 mg/dL (7-18); CALCIUM 7.8 mg/dL (8.5-10.1)
[2021-01-03] MEDS ORDERED: POTASSIUM CHLORIDE ORAL LIQUID 20 MEQ/15 ML PO ONE (12:06)
[2021-01-03 12:07] LABS: CREATININE 1.2 mg/dL (0.55-1.3)
[2021-01-03 12:08] LABS: BILIRUBIN,TOTAL 0.9 mg/dL (0.2-1); TOT PROT 5.2 g/dl (6.4-8.2)
[2021-01-03] MEDS ORDERED: MAGNESIUM 2GM/50ML STERILE WATER IVPB IVPB ONE (12:15)
[2021-01-03 12:49] LABS: ANISOCYTOSIS 1+; MACROCYTOSIS 1+; OVALOCYTE 1+; PLATELET ESTIMATE DECREASED
[2021-01-03 17:19] VITALS: BP 147/62; PULSE 86; TEMP 98.3
== END 2021-01-03 15:55 | disposition home or self-care (01) ==
LOC: JONCCHEMO 07:18
PROVIDERS: ATTEND Internal Medicine Hematology & Oncology
PROC: 3E01305 Introduction of Other Antineoplastic into Subcutaneous Tissue, Percutaneous Approach (ICD-10-PCS; principal; 2021-01-03)
PROC: 3E033GC Introduction of Other Therapeutic Substance into Peripheral Vein, Percutaneous Approach (ICD-10-PCS; 2021-01-03)
DX: Z51.11 Encounter for antineoplastic chemotherapy (principal); C90.00 Multiple myeloma not having achieved remission
CPT/HCPCS: 36415; 80053; 83735; 85025; 96365; 96367; 96401; J9144

== ENCOUNTER 2021-01-18 07:27 | Day surgery (SDC) | payer OTHER ==
[~2021-01-18 07:27] MED LIST changes: -DEXAMETHASONE INJECTION 20 MG, DIPHENHYDRAMINE 25 MG in SODIUM CHLORIDE 100 ML IVPB ONE; +DEXAMETHASONE SODIUM PHOSPHATE 20 MG, DIPHENHYDRAMINE 25 MG in SODIUM CHLORIDE 100 ML IVPB ONE
[2021-01-18 08:51] LABS: BASO % 0.5 % (0-2.0); EOS % 1.5 % (0-4.5); HEMATOCRIT 25.9 % (35.4-49); HEMOGLOBIN 8.5 GM/dL (11.7-16.9); LYMPH % 9.5 % (8-40); MCH 33.2 pg (25.7-33.7); MCHC 32.9 g/dl (32.0-35.9); MEAN CELL VOLUME 100.9 fl (80-96); MONO % 7.7 % (3.8-10.2); NEUT % 80.8 % (42.8-82.8); PLATELET COUNT 61 10^3/uL (134-434); RBC 2.57 M/mm3 (4.00-5.60); RDW 21.1 % (11.9-15.9); WHITE BLOOD COUNT 3.8 K/mm3 (4.0-10.0)
[2021-01-18 09:12] LABS: ALBUMIN 3.1 g/dl (3.4-5.0); BLOOD UREA NITROGEN 13.7 mg/dL (7-18); CALCIUM 8.8 mg/dL (8.5-10.1)
[2021-01-18 09:13] LABS: MAGNESIUM 2.5 mg/dL (1.8-2.4)
[2021-01-18 09:16] LABS: CREATININE 1.3 mg/dL (0.55-1.3)
[2021-01-18 09:18] LABS: BILIRUBIN,TOTAL 0.5 mg/dL (0.2-1); TOT PROT 5.4 g/dl (6.4-8.2)
[2021-01-18 11:13] VITALS: BP 134/48; PULSE 85; TEMP 98.5
[2021-01-18 15:33] LABS: ANISOCYTOSIS 2+; MACROCYTOSIS 2+; OVALOCYTE 2+; PLATELET ESTIMATE DECREASED
[2021-01-19 07:13] LABS: IGA IMMUNOGLOBULIN 101 mg/dL (61-437); IGG QN IMMUNOGLOBULIN 356 mg/dL (603-1613); IGM QN SERUM 15 mg/dL (15-143)
[2021-01-19 16:21] LABS: FREE KAPPA,SERUM 18.3 mg/L (3.3-19.4)
== END 2021-01-18 11:00 | disposition home or self-care (01) ==
LOC: JONCBLOOD 07:27
PROVIDERS: ATTEND Internal Medicine Hematology & Oncology
DX: Z53.8 Procedure and treatment not carried out for other reasons (principal)
CPT/HCPCS: 36415; 80053; 82784; 83735; 83883; 84155; 84165; 85025; 86850; 86870; 86900; 86901; 86902; 86922

== ENCOUNTER 2021-01-31 07:53 | Day surgery (SDC) | payer OTHER ==
[2021-01-31] MEDS ORDERED: DEXAMETHASONE SODIUM PHOSPHATE 20 MG, DIPHENHYDRAMINE 25 MG in SODIUM CHLORIDE 100 ML IVPB ONE (10:30)
[2021-01-31] MEDS ORDERED: FAMOTIDINE 20 MG/50 ML IVPB 20 MG/50 ML MG IVPB ONE (10:30)
[2021-01-31] MEDS ORDERED: ACETAMINOPHEN 325 MG TABLET (FP) PO ONE (10:30)
[2021-01-31] MEDS ORDERED: DARATUMUMAB-HYALURONIDASE-FIHJ (FASPRO) 15 ML VIAL SQ ONE (11:00)
[2021-01-31 12:28] LABS: ALBUMIN 2.9 g/dl (3.4-5.0); BLOOD UREA NITROGEN 20.6 mg/dL (7-18); CALCIUM 8.4 mg/dL (8.5-10.1)
[2021-01-31 12:29] LABS: BASO % 0.4 % (0-2.0); EOS % 1.3 % (0-4.5); HEMATOCRIT 25.5 % (35.4-49); HEMOGLOBIN 8.6 GM/dL (11.7-16.9); LYMPH % 7.5 % (8-40); MCH 34.2 pg (25.7-33.7); MCHC 33.6 g/dl (32.0-35.9); MEAN CELL VOLUME 101.7 fl (80-96); MEAN PLT VOLUME 8.3 fl (7.5-11.1); MONO % 10.3 % (3.8-10.2); NEUT % 80.5 % (42.8-82.8); PLATELET COUNT 63 10^3/uL (134-434); RBC 2.51 M/mm3 (4.00-5.60); RDW 20.8 % (11.9-15.9); WHITE BLOOD COUNT 5.4 K/mm3 (4.0-10.0)
[2021-01-31 12:31] LABS: CREATININE 1.2 mg/dL (0.55-1.3)
[2021-01-31 12:33] LABS: BILIRUBIN,TOTAL 0.7 mg/dL (0.2-1); TOT PROT 5.2 g/dl (6.4-8.2)
[2021-01-31 13:03] LABS: ANISOCYTOSIS 1+; MACROCYTOSIS 1+; PLATELET ESTIMATE DECREASED; TEAR DROP CELLS 1+
[2021-01-31 17:01] VITALS: TEMP 98.2
[2021-01-31 17:04] VITALS: BP 130/76; PULSE 81
== END 2021-01-31 16:40 | disposition home or self-care (01) ==
LOC: JONCCHEMO 07:53
PROVIDERS: ATTEND Internal Medicine Hematology & Oncology
PROC: 3E033GC Introduction of Other Therapeutic Substance into Peripheral Vein, Percutaneous Approach (ICD-10-PCS; principal; 2021-01-31)
DX: Z51.11 Encounter for antineoplastic chemotherapy (principal); C90.00 Multiple myeloma not having achieved remission
CPT/HCPCS: 36415; 80053; 85025; 96365; 96401; J9144

== ENCOUNTER 2021-02-28 07:50 | Day surgery (SDC) | payer OTHER ==
[2021-02-28] MEDS ORDERED: FAMOTIDINE 20 MG/50 ML IVPB 20 MG/50 ML MG IVPB ONE (10:00)
[2021-02-28] MEDS ORDERED: ACETAMINOPHEN 325 MG TABLET (FP) PO ONE (10:00)
[2021-02-28] MEDS ORDERED: DEXAMETHASONE SODIUM PHOSPHATE 20 MG, DIPHENHYDRAMINE 25 MG in SODIUM CHLORIDE 100 ML IVPB ONE (10:00)
[2021-02-28 10:04] LABS: BASO % 0.7 % (0-2.0); EOS % 1.5 % (0-4.5); HEMATOCRIT 28.4 % (35.4-49); HEMOGLOBIN 9.1 GM/dL (11.7-16.9); LYMPH % 12.6 % (8-40); MCH 33.6 pg (25.7-33.7); MCHC 32.1 g/dl (32.0-35.9); MEAN CELL VOLUME 104.7 fl (80-96); MEAN PLT VOLUME 7.7 fl (7.5-11.1); MONO % 5.8 % (3.8-10.2); NEUT % 79.4 % (42.8-82.8); PLATELET COUNT 75 10^3/uL (134-434); RBC 2.71 M/mm3 (4.00-5.60); RDW 17.5 % (11.9-15.9); WHITE BLOOD COUNT 3.6 K/mm3 (4.0-10.0)
[2021-02-28 10:24] LABS: CALCIUM 8.7 mg/dL (8.5-10.1)
[2021-02-28 10:25] LABS: ALBUMIN 3.4 g/dl (3.4-5.0); BLOOD UREA NITROGEN 20.6 mg/dL (7-18)
[2021-02-28 10:28] LABS: CREATININE 1.4 mg/dL (0.55-1.3)
[2021-02-28 10:30] LABS: BILIRUBIN,TOTAL 0.5 mg/dL (0.2-1); TOT PROT 5.6 g/dl (6.4-8.2)
[2021-02-28] MEDS ORDERED: DARATUMUMAB-HYALURONIDASE-FIHJ (FASPRO) 15 ML VIAL SQ ONE (10:30)
[2021-02-28 14:36] VITALS: TEMP 97.9
[2021-02-28 14:37] VITALS: BP 155/46; PULSE 69
== END 2021-02-28 11:00 | disposition home or self-care (01) ==
LOC: JONCCHEMO 07:50
PROVIDERS: ATTEND Internal Medicine Hematology & Oncology
PROC: 3E01305 Introduction of Other Antineoplastic into Subcutaneous Tissue, Percutaneous Approach (ICD-10-PCS; principal; 2021-02-28)
PROC: 3E033GC Introduction of Other Therapeutic Substance into Peripheral Vein, Percutaneous Approach (ICD-10-PCS; 2021-02-28)
DX: Z51.11 Encounter for antineoplastic chemotherapy (principal); C90.00 Multiple myeloma not having achieved remission
CPT/HCPCS: 36415; 80053; 85025; 96365; 96401; J9144

== ENCOUNTER 2021-03-28 08:09 | Day surgery (SDC) | payer OTHER ==
[2021-03-28] MEDS ORDERED: FAMOTIDINE 20 MG/50 ML IVPB 20 MG/50 ML MG IVPB ONE (10:30)
[2021-03-28] MEDS ORDERED: DEXAMETHASONE SODIUM PHOSPHATE 20 MG, DIPHENHYDRAMINE 25 MG in SODIUM CHLORIDE 100 ML IVPB ONE (10:30)
[2021-03-28] MEDS ORDERED: ACETAMINOPHEN 325 MG TABLET (FP) PO ONE (10:30)
[2021-03-28 10:39] LABS: BASO % 0.6 % (0-2.0); EOS % 2.4 % (0-4.5); HEMATOCRIT 29.8 % (35.4-49); HEMOGLOBIN 10.2 GM/dL (11.7-16.9); LYMPH % 8.7 % (8-40); MCH 35.4 pg (25.7-33.7); MCHC 34.4 g/dl (32.0-35.9); MEAN CELL VOLUME 102.7 fl (80-96); MEAN PLT VOLUME 7.7 fl (7.5-11.1); MONO % 7.8 % (3.8-10.2); NEUT % 80.5 % (42.8-82.8); PLATELET COUNT 72 10^3/uL (134-434); RDW 15.9 % (11.9-15.9); WHITE BLOOD COUNT 4.5 K/mm3 (4.0-10.0)
[2021-03-28] MEDS ORDERED: DARATUMUMAB-HYALURONIDASE-FIHJ (FASPRO) 15 ML VIAL SQ ONE (11:00)
[2021-03-28 11:02] LABS: ALBUMIN 3.6 g/dl (3.4-5.0); CALCIUM 8.7 mg/dL (8.5-10.1)
[2021-03-28 11:06] LABS: CREATININE 1.4 mg/dL (0.55-1.3)
[2021-03-28 11:07] LABS: TOT PROT 5.9 g/dl (6.4-8.2)
[2021-03-28 11:08] LABS: BILIRUBIN,TOTAL 0.5 mg/dL (0.2-1)
[2021-03-28 18:11] VITALS: TEMP 98.5
[2021-03-28 18:19] VITALS: BP 131/50; PULSE 77
== END 2021-03-28 15:30 | disposition home or self-care (01) ==
LOC: JONCCHEMO 08:09
PROVIDERS: ATTEND Internal Medicine Hematology & Oncology
PROC: 3E01305 Introduction of Other Antineoplastic into Subcutaneous Tissue, Percutaneous Approach (ICD-10-PCS; principal; 2021-03-28)
PROC: 3E033GC Introduction of Other Therapeutic Substance into Peripheral Vein, Percutaneous Approach (ICD-10-PCS; 2021-03-28)
DX: Z51.11 Encounter for antineoplastic chemotherapy (principal); C90.00 Multiple myeloma not having achieved remission; I10 Essential (primary) hypertension; J44.9 Chronic obstructive pulmonary disease, unspecified
CPT/HCPCS: 36415; 80053; 85025; 96365; 96367; 96401; J9144

== ENCOUNTER 2021-04-25 09:02 | Day surgery (SDC) | payer OTHER ==
[2021-04-25] MEDS ORDERED: ACETAMINOPHEN 325 MG TABLET (FP) PO ONE (10:00)
[2021-04-25] MEDS ORDERED: FAMOTIDINE 20 MG/50 ML IVPB 20 MG/50 ML MG IVPB ONE (10:00)
[2021-04-25] MEDS ORDERED: DEXAMETHASONE SODIUM PHOSPHATE 20 MG, DIPHENHYDRAMINE 25 MG in SODIUM CHLORIDE 100 ML IVPB ONE (10:00)
[2021-04-25] MEDS ORDERED: DARATUMUMAB-HYALURONIDASE-FIHJ (FASPRO) 15 ML VIAL SQ ONE (10:30)
[2021-04-25 11:45] LABS: BASO % 0.5 % (0-2.0); EOS % 3.5 % (0-4.5); LYMPH % 6.1 % (8-40); MCH 33.5 pg (25.7-33.7); MCHC 33.3 g/dl (32.0-35.9); MEAN CELL VOLUME 100.5 fl (80-96); MEAN PLT VOLUME 9.6 fl (7.5-11.1); MONO % 10.8 % (3.8-10.2); NEUT % 79.1 % (42.8-82.8); PLATELET COUNT 111 10^3/uL (134-434); RBC 3.28 M/mm3 (4.00-5.60); RDW 14.6 % (11.9-15.9); WHITE BLOOD COUNT 6.6 K/mm3 (4.0-10.0)
[2021-04-25 12:07] LABS: CALCIUM 8.8 mg/dL (8.5-10.1)
[2021-04-25 12:08] LABS: ALBUMIN 3.3 g/dl (3.4-5.0); BLOOD UREA NITROGEN 20.9 mg/dL (7-18)
[2021-04-25 12:11] LABS: CREATININE 1.3 mg/dL (0.55-1.3)
[2021-04-25 12:12] LABS: TOT PROT 5.8 g/dl (6.4-8.2)
[2021-04-25 12:13] LABS: BILIRUBIN,TOTAL 0.5 mg/dL (0.2-1)
[2021-04-25 17:57] VITALS: BP 128/56; PULSE 93; TEMP 98.3
== END 2021-04-25 15:10 | disposition home or self-care (01) ==
LOC: JONCCHEMO 09:02
PROVIDERS: ATTEND Internal Medicine Hematology & Oncology
PROC: 3E033GC Introduction of Other Therapeutic Substance into Peripheral Vein, Percutaneous Approach (ICD-10-PCS; principal; 2021-04-25)
PROC: 3E01305 Introduction of Other Antineoplastic into Subcutaneous Tissue, Percutaneous Approach (ICD-10-PCS; 2021-04-25)
DX: Z51.11 Encounter for antineoplastic chemotherapy (principal); C90.00 Multiple myeloma not having achieved remission
CPT/HCPCS: 36415; 80053; 85025; 96365; 96401; J9144

== ENCOUNTER 2021-05-23 08:35 | Day surgery (SDC) | payer OTHER ==
[2021-05-23] MEDS ORDERED: DEXAMETHASONE SODIUM PHOSPHATE 20 MG, DIPHENHYDRAMINE 25 MG in SODIUM CHLORIDE 100 ML IVPB ONE (09:30)
[2021-05-23] MEDS ORDERED: FAMOTIDINE 20 MG/50 ML IVPB 20 MG/50 ML MG IVPB ONE (09:30)
[2021-05-23] MEDS ORDERED: ACETAMINOPHEN 325 MG TABLET (FP) PO ONE (09:30)
[2021-05-23] MEDS ORDERED: DARATUMUMAB-HYALURONIDASE-FIHJ (FASPRO) 15 ML VIAL SQ ONE (10:00)
[2021-05-23 11:16] LABS: BASO % 0.6 % (0-2.0); EOS % 3.3 % (0-4.5); HEMOGLOBIN 10.6 GM/dL (11.7-16.9); MCH 33.3 pg (25.7-33.7); MCHC 33.2 g/dl (32.0-35.9); MEAN CELL VOLUME 100.1 fl (80-96); MEAN PLT VOLUME 8.8 fl (7.5-11.1); MONO % 8.9 % (3.8-10.2); NEUT % 79.2 % (42.8-82.8); PLATELET COUNT 99 10^3/uL (134-434); RDW 15.9 % (11.9-15.9); WHITE BLOOD COUNT 5.3 K/mm3 (4.0-10.0)
[2021-05-23 11:29] LABS: CALCIUM 9.1 mg/dL (8.5-10.1)
[2021-05-23 11:30] LABS: ALBUMIN 3.5 g/dl (3.4-5.0); BLOOD UREA NITROGEN 21.8 mg/dL (7-18)
[2021-05-23 11:33] LABS: CREATININE 1.3 mg/dL (0.55-1.3)
[2021-05-23 11:34] LABS: BILIRUBIN,TOTAL 0.6 mg/dL (0.2-1); TOT PROT 5.7 g/dl (6.4-8.2)
[2021-05-23 12:06] VITALS: TEMP 98.6
[2021-05-23 14:14] VITALS: BP 150/59; PULSE 80
== END 2021-05-23 14:15 | disposition home or self-care (01) ==
LOC: JONCCHEMO 08:35
PROVIDERS: ATTEND Internal Medicine Hematology & Oncology
PROC: 3E01305 Introduction of Other Antineoplastic into Subcutaneous Tissue, Percutaneous Approach (ICD-10-PCS; principal; 2021-05-23)
PROC: 3E033GC Introduction of Other Therapeutic Substance into Peripheral Vein, Percutaneous Approach (ICD-10-PCS; 2021-05-23)
DX: Z51.11 Encounter for antineoplastic chemotherapy (principal); C90.00 Multiple myeloma not having achieved remission
CPT/HCPCS: 36415; 80053; 85025; 96365; 96401; J9144

== ENCOUNTER 2021-06-20 07:00 | Day surgery (SDC) | payer OTHER ==
[2021-06-20] MEDS ORDERED: ACETAMINOPHEN 325 MG TABLET (FP) PO ONE (10:00)
[2021-06-20] MEDS ORDERED: FAMOTIDINE 20 MG/50 ML IVPB 20 MG/50 ML MG IVPB ONE (10:00)
[2021-06-20] MEDS ORDERED: DEXAMETHASONE SODIUM PHOSPHATE 20 MG, DIPHENHYDRAMINE 25 MG in SODIUM CHLORIDE 100 ML IVPB ONE (10:00)
[2021-06-20] MEDS ORDERED: DARATUMUMAB-HYALURONIDASE-FIHJ (FASPRO) 15 ML VIAL SQ ONE (10:30)
[2021-06-20 11:17] LABS: BASO % 0.4 % (0-2.0); EOS % 2.5 % (0-4.5); HEMATOCRIT 28.9 % (35.4-49); HEMOGLOBIN 9.9 GM/dL (11.7-16.9); LYMPH % 9.3 % (8-40); MCH 33.8 pg (25.7-33.7); MCHC 34.1 g/dl (32.0-35.9); MEAN CELL VOLUME 99.2 fl (80-96); MEAN PLT VOLUME 8.2 fl (7.5-11.1); MONO % 7.6 % (3.8-10.2); NEUT % 80.2 % (42.8-82.8); PLATELET COUNT 79 10^3/uL (134-434); RBC 2.91 M/mm3 (4.00-5.60); RDW 16.1 % (11.9-15.9); WHITE BLOOD COUNT 5.8 K/mm3 (4.0-10.0)
[2021-06-20 11:30] LABS: ALBUMIN 3.1 g/dl (3.4-5.0); BLOOD UREA NITROGEN 19.1 mg/dL (7-18); CALCIUM 8.8 mg/dL (8.5-10.1)
[2021-06-20 11:33] LABS: CREATININE 1.3 mg/dL (0.55-1.3)
[2021-06-20 11:35] LABS: BILIRUBIN,TOTAL 0.9 mg/dL (0.2-1); TOT PROT 5.2 g/dl (6.4-8.2)
[2021-06-20 17:06] VITALS: BP 132/84; TEMP 98
[2021-06-20 17:08] VITALS: PULSE 78
== END 2021-06-20 13:45 | disposition home or self-care (01) ==
LOC: JONCCHEMO 07:00
PROVIDERS: ATTEND Internal Medicine Hematology & Oncology
PROC: 3E01305 Introduction of Other Antineoplastic into Subcutaneous Tissue, Percutaneous Approach (ICD-10-PCS; principal; 2021-06-20)
PROC: 3E043GC Introduction of Other Therapeutic Substance into Central Vein, Percutaneous Approach (ICD-10-PCS; 2021-06-20)
DX: Z51.11 Encounter for antineoplastic chemotherapy (principal); C90.00 Multiple myeloma not having achieved remission
CPT/HCPCS: 36415; 80053; 85025; 96365; 96401; J9144

== ENCOUNTER 2021-07-18 08:17 | Day surgery (SDC) | payer OTHER ==
[2021-07-18] MEDS ORDERED: FAMOTIDINE 20 MG/50 ML IVPB 20 MG/50 ML MG IVPB ONE (09:30)
[2021-07-18] MEDS ORDERED: ACETAMINOPHEN 325 MG TABLET (FP) PO ONE (09:30)
[2021-07-18] MEDS ORDERED: DEXAMETHASONE SODIUM PHOSPHATE 20 MG, DIPHENHYDRAMINE 25 MG in SODIUM CHLORIDE 100 ML IVPB ONE (09:30)
[2021-07-18] MEDS ORDERED: DARATUMUMAB-HYALURONIDASE-FIHJ (FASPRO) 15 ML VIAL SQ ONE (10:00)
[2021-07-18 11:29] LABS: BASO % 0.7 % (0-2.0); EOS % 2.3 % (0-4.5); HEMATOCRIT 29.2 % (35.4-49); HEMOGLOBIN 9.9 GM/dL (11.7-16.9); LYMPH % 6.9 % (8-40); MCH 33.8 pg (25.7-33.7); MCHC 33.9 g/dl (32.0-35.9); MEAN CELL VOLUME 99.8 fl (80-96); MEAN PLT VOLUME 7.5 fl (7.5-11.1); MONO % 7.5 % (3.8-10.2); NEUT % 82.6 % (42.8-82.8); PLATELET COUNT 62 10^3/uL (134-434); RBC 2.93 M/mm3 (4.00-5.60); RDW 16.4 % (11.9-15.9)
[2021-07-18 11:51] LABS: CALCIUM 8.6 mg/dL (8.5-10.1)
[2021-07-18 11:52] LABS: ALBUMIN 3.2 g/dl (3.4-5.0); BLOOD UREA NITROGEN 20.3 mg/dL (7-18)
[2021-07-18 11:55] LABS: CREATININE 1.3 mg/dL (0.55-1.3)
[2021-07-18 11:57] LABS: BILIRUBIN,TOTAL 0.5 mg/dL (0.2-1); TOT PROT 5.6 g/dl (6.4-8.2)
== END 2021-07-18 13:30 | disposition home or self-care (01) ==
LOC: JONCCHEMO 08:17
PROVIDERS: ATTEND Internal Medicine Hematology & Oncology
DX: Z53.8 Procedure and treatment not carried out for other reasons (principal)
CPT/HCPCS: 36415; 80053; 85025

== ENCOUNTER 2021-07-24 07:30 | Day surgery (SDC) | payer OTHER ==
[2021-07-24 11:34] LABS: BASO % 0.7 % (0-2.0); EOS % 0.9 % (0-4.5); HEMATOCRIT 29.9 % (35.4-49); LYMPH % 8.5 % (8-40); MCHC 33.4 g/dl (32.0-35.9); MEAN PLT VOLUME 7.7 fl (7.5-11.1); MONO % 7.6 % (3.8-10.2); NEUT % 82.3 % (42.8-82.8); PLATELET COUNT 61 10^3/uL (134-434); RBC 3.02 M/mm3 (4.00-5.60); RDW 16.5 % (11.9-15.9); WHITE BLOOD COUNT 4.6 K/mm3 (4.0-10.0)
[2021-07-24 11:53] LABS: ALBUMIN 3.5 g/dl (3.4-5.0); CALCIUM 8.6 mg/dL (8.5-10.1)
[2021-07-24 11:54] LABS: BLOOD UREA NITROGEN 23.6 mg/dL (7-18)
[2021-07-24 11:56] LABS: CREATININE 1.4 mg/dL (0.55-1.3)
[2021-07-24 11:58] LABS: BILIRUBIN,TOTAL 0.5 mg/dL (0.2-1); TOT PROT 5.8 g/dl (6.4-8.2)
[2021-07-24] MEDS ORDERED: ACETAMINOPHEN 325 MG TABLET (FP) PO ONE (12:45)
[2021-07-24] MEDS ORDERED: DEXAMETHASONE SODIUM PHOSPHATE 20 MG, DIPHENHYDRAMINE 25 MG in SODIUM CHLORIDE 100 ML IVPB ONE (12:45)
[2021-07-24] MEDS ORDERED: FAMOTIDINE 20 MG/50 ML IVPB 20 MG/50 ML MG IVPB ONE (12:45)
[2021-07-24] MEDS ORDERED: DARATUMUMAB-HYALURONIDASE-FIHJ (FASPRO) 15 ML VIAL SQ ONE (13:15)
[2021-07-24 18:02] VITALS: BP 139/70; PULSE 80
[2021-07-24 18:06] VITALS: TEMP 98.5
== END 2021-07-24 15:20 | disposition home or self-care (01) ==
LOC: JONCCHEMO 07:30
PROVIDERS: ATTEND Internal Medicine Hematology & Oncology
PROC: 3E01305 Introduction of Other Antineoplastic into Subcutaneous Tissue, Percutaneous Approach (ICD-10-PCS; principal; 2021-07-24)
PROC: 3E033GC Introduction of Other Therapeutic Substance into Peripheral Vein, Percutaneous Approach (ICD-10-PCS; 2021-07-24)
DX: Z51.11 Encounter for antineoplastic chemotherapy (principal); C90.00 Multiple myeloma not having achieved remission
CPT/HCPCS: 36415; 80053; 85025; 96365; 96401; J9144

== ENCOUNTER 2021-09-11 06:34 | Day surgery (SDC) | payer OTHER ==
[2021-09-11 10:11] LABS: BASO % 0.3 % (0-2.0); EOS % 1.1 % (0-4.5); HEMOGLOBIN 8.1 GM/dL (11.7-16.9); LYMPH % 18.9 % (8-40); MCHC 33.8 g/dl (32.0-35.9); MEAN CELL VOLUME 97.5 fl (80-96); MEAN PLT VOLUME 8.1 fl (7.5-11.1); MONO % 8.2 % (3.8-10.2); NEUT % 71.5 % (42.8-82.8); PLATELET COUNT 44 10^3/uL (134-434); RBC 2.47 M/mm3 (4.00-5.60); RDW 15.3 % (11.9-15.9); WHITE BLOOD COUNT 2.3 K/mm3 (4.0-10.0)
[2021-09-11 10:40] LABS: ALBUMIN 3.1 g/dl (3.4-5.0); CALCIUM 8.3 mg/dL (8.5-10.1)
[2021-09-11 10:41] LABS: BLOOD UREA NITROGEN 21.2 mg/dL (7-18)
[2021-09-11 10:44] LABS: CREATININE 1.4 mg/dL (0.55-1.3)
[2021-09-11 10:45] LABS: TOT PROT 5.4 g/dl (6.4-8.2)
[2021-09-11 10:46] LABS: BILIRUBIN,TOTAL 0.7 mg/dL (0.2-1)
[2021-09-12 18:10] LABS: FREE KAPPA,SERUM 19.2 mg/L (3.3-19.4)
== END 2021-09-11 12:15 | disposition home or self-care (01) ==
LOC: JONCCHEMO 06:34
PROVIDERS: ATTEND Internal Medicine Hematology & Oncology
DX: Z53.8 Procedure and treatment not carried out for other reasons (principal)
CPT/HCPCS: 36415; 80053; 83883; 85025; 96365

== ENCOUNTER 2021-09-23 11:40 | Inpatient (IN) | payer OTHER ==
[2021-09-23 13:23] LABS: BASO % 0.3 % (0-2.0); EOS % 0.4 % (0-4.5); HEMATOCRIT 22.1 % (35.4-49); HEMOGLOBIN 7.4 GM/dL (11.7-16.9); MCH 32.4 pg (25.7-33.7); MCHC 33.4 g/dl (32.0-35.9); MEAN CELL VOLUME 97.1 fl (80-96); MEAN PLT VOLUME 8.5 fl (7.5-11.1); MONO % 7.8 % (3.8-10.2); NEUT % 73.5 % (42.8-82.8); PLATELET COUNT 41 10^3/uL (134-434); RBC 2.27 M/mm3 (4.00-5.60); RDW 15.7 % (11.9-15.9); RETICULOCYTES 3.88 % (0.5-1.5); WHITE BLOOD COUNT 2.3 K/mm3 (4.0-10.0)
[2021-09-23 13:25] LABS: INR 1.1 (0.83-1.09); PROTHROMBIN TIME (PATIENT) 12.7 SEC (9.7-13.0)
[2021-09-23 13:44] LABS: ALBUMIN 3.1 g/dl (3.4-5.0); BLOOD UREA NITROGEN 23.4 mg/dL (7-18); CALCIUM 8.6 mg/dL (8.5-10.1); MAGNESIUM 2.6 mg/dL (1.8-2.4)
[2021-09-23 13:47] LABS: CREATININE 1.6 mg/dL (0.55-1.3)
[2021-09-23 13:49] LABS: BILIRUBIN,TOTAL 0.7 mg/dL (0.2-1); TOT PROT 5.3 g/dl (6.4-8.2)
[2021-09-23 15:40] LABS: HEMATOCRIT 22.6 % (35.4-49); HEMOGLOBIN 7.5 GM/dL (11.7-16.9); MCH 32.3 pg (25.7-33.7); MCHC 33.2 g/dl (32.0-35.9); MEAN CELL VOLUME 97.3 fl (80-96); MEAN PLT VOLUME 8.4 fl (7.5-11.1); PLATELET COUNT 40 10^3/uL (134-434); RBC 2.32 M/mm3 (4.00-5.60); RDW 15.6 % (11.9-15.9); WHITE BLOOD COUNT 2.2 K/mm3 (4.0-10.0)
[2021-09-23 17:50] LABS: ANISOCYTOSIS 0; MACROCYTOSIS 0
[2021-09-23] MEDS ORDERED: ALBUTEROL SO4 HFA INHALER IH PRN (18:00)
[2021-09-24 04:11] VITALS: BMI 22.8
[2021-09-24] MEDS: valACYclovir HCL 500 MG TABLET (FP) PO SCH (09:53)
[2021-09-24] MEDS: PANTOPRAZOLE 40 MG TABLET PO SCH (09:53)
[2021-09-24 11:52] LABS: INR 1.15 (0.83-1.09); PROTHROMBIN TIME (PATIENT) 13.3 SEC (9.7-13.0)
[2021-09-24 11:55] LABS: ACTIVATED PTT 28.2 SECONDS (25.2-36.5)
[2021-09-24 12:06] LABS: ALBUMIN 3.1 g/dl (3.4-5.0); CALCIUM 8.7 mg/dL (8.5-10.1)
[2021-09-24 12:07] LABS: BLOOD UREA NITROGEN 23.6 mg/dL (7-18); MAGNESIUM 2.6 mg/dL (1.8-2.4)
[2021-09-24 12:10] LABS: BASO % 0.6 % (0-2.0); BILIRUBIN,TOTAL 1.3 mg/dL (0.2-1); CREATININE 1.5 mg/dL (0.55-1.3); EOS % 0.5 % (0-4.5); HEMATOCRIT 21.9 % (35.4-49); HEMOGLOBIN 7.4 GM/dL (11.7-16.9); MCH 32.6 pg (25.7-33.7); MEAN CELL VOLUME 96.1 fl (80-96); MEAN PLT VOLUME 8.6 fl (7.5-11.1); MONO % 6.3 % (3.8-10.2); NEUT % 77.6 % (42.8-82.8); PLATELET COUNT 41 10^3/uL (134-434); RBC 2.28 M/mm3 (4.00-5.60); RDW 15.4 % (11.9-15.9); TOT PROT 5.4 g/dl (6.4-8.2); WHITE BLOOD COUNT 2.2 K/mm3 (4.0-10.0)
[2021-09-24] MEDS ORDERED: PEG 3350/NA SULF BICARB CL/KCL 4000 ML SOLN.RECON PO ONE (12:30)
[2021-09-24] MEDS: POLYETHYLENE GLYCOL (HEALTHYLAX) 3350 17 GM PACKET PO SCH ×2 (13:34→22:30)
[2021-09-24 13:57] LABS: BILIRUBIN,DIRECT 0.3 mg/dL (0.0-0.2)
[2021-09-24 18:36] LABS: INR 1.17 (0.83-1.09); PROTHROMBIN TIME (PATIENT) 13.5 SEC (9.7-13.0)
[2021-09-25] MEDS: POLYETHYLENE GLYCOL (HEALTHYLAX) 3350 17 GM PACKET PO SCH ×3 (07:06→22:42)
[2021-09-25] MEDS ORDERED: PEG 3350/NA SULF BICARB CL/KCL 4000 ML SOLN.RECON PO ONE (10:00)
[2021-09-25] MEDS: valACYclovir HCL 500 MG TABLET (FP) PO SCH (10:29)
[2021-09-25] MEDS: PANTOPRAZOLE 40 MG TABLET PO SCH (10:29)
[2021-09-25] MEDS ORDERED: MAGNESIUM CITRATE 300 ML BOTTLE PO ONE ×3 (10:51→21:45)
[2021-09-25 14:05] LABS: HEMATOCRIT 21.7 % (35.4-49); HEMOGLOBIN 7.3 GM/dL (11.7-16.9); MCH 32.5 pg (25.7-33.7); MCHC 33.8 g/dl (32.0-35.9); MEAN CELL VOLUME 96.3 fl (80-96); MEAN PLT VOLUME 7.6 fl (7.5-11.1); PLATELET COUNT 67 10^3/uL (134-434); RBC 2.26 M/mm3 (4.00-5.60); RDW 15.4 % (11.9-15.9)
[2021-09-25 14:10] LABS: INR 1.11 (0.83-1.09); PROTHROMBIN TIME (PATIENT) 12.8 SEC (9.7-13.0)
[2021-09-25 14:12] LABS: ACTIVATED PTT 29.9 SECONDS (25.2-36.5)
[2021-09-25 14:52] LABS: ALBUMIN 3.2 g/dl (3.4-5.0); BLOOD UREA NITROGEN 19.9 mg/dL (7-18); CALCIUM 8.7 mg/dL (8.5-10.1)
[2021-09-25 14:54] LABS: CREATININE 1.4 mg/dL (0.55-1.3)
[2021-09-25] MEDS ORDERED: POLYETHYLENE GLYCOL 3350 255 GM BTL PO ONE (14:55)
[2021-09-25 14:56] LABS: BILIRUBIN,TOTAL 0.9 mg/dL (0.2-1); TOT PROT 5.6 g/dl (6.4-8.2)
[2021-09-25] MEDS ORDERED: BISACODYL 5 MG TABLET.DR (FP) PO ONE (20:00)
[2021-09-26] MEDS: POLYETHYLENE GLYCOL (HEALTHYLAX) 3350 17 GM PACKET PO SCH ×3 (06:01→22:01)
[2021-09-26] MEDS: valACYclovir HCL 500 MG TABLET (FP) PO SCH (09:22)
[2021-09-26] MEDS: PANTOPRAZOLE 40 MG TABLET PO SCH (09:22)
[2021-09-26 10:34] LABS: HEMATOCRIT 22.5 % (35.4-49); HEMOGLOBIN 7.7 GM/dL (11.7-16.9); MCH 31.5 pg (25.7-33.7); MCHC 34.1 g/dl (32.0-35.9); MEAN CELL VOLUME 92.4 fl (80-96); MEAN PLT VOLUME 7.6 fl (7.5-11.1); PLATELET COUNT 94 10^3/uL (134-434); RBC 2.44 M/mm3 (4.00-5.60); RDW 18.3 % (11.9-15.9); WHITE BLOOD COUNT 2.4 K/mm3 (4.0-10.0)
[2021-09-26 10:48] LABS: INR 1.12 (0.83-1.09); PROTHROMBIN TIME (PATIENT) 12.9 SEC (9.7-13.0)
[2021-09-26 11:05] LABS: ALBUMIN 3.3 g/dl (3.4-5.0); BLOOD UREA NITROGEN 21.7 mg/dL (7-18); CALCIUM 8.6 mg/dL (8.5-10.1)
[2021-09-26 11:07] LABS: MAGNESIUM 2.9 mg/dL (1.8-2.4)
[2021-09-26 11:09] LABS: CREATININE 1.3 mg/dL (0.55-1.3)
[2021-09-26 11:11] LABS: TOT PROT 5.7 g/dl (6.4-8.2)
[2021-09-26 12:32] LABS: ANISOCYTOSIS 1+; MACROCYTOSIS 1+; OVALOCYTE 1+; PLATELET ESTIMATE DECREASED
[2021-09-26] MEDS: POLYETHYLENE GLYCOL 3350 255 GM BTL PO ONE ×2 (15:08→16:26)
[2021-09-26] MEDS ORDERED: BISACODYL 5 MG TABLET.DR (FP) PO ONE (20:00)
[2021-09-27] MEDS: POLYETHYLENE GLYCOL (HEALTHYLAX) 3350 17 GM PACKET PO SCH ×3 (05:43→21:45)
[2021-09-27 08:31] LABS: HEMATOCRIT 21.8 % (35.4-49); HEMOGLOBIN 7.5 GM/dL (11.7-16.9); MCH 31.4 pg (25.7-33.7); MCHC 34.5 g/dl (32.0-35.9); MEAN CELL VOLUME 90.9 fl (80-96); MEAN PLT VOLUME 7.3 fl (7.5-11.1); PLATELET COUNT 69 10^3/uL (134-434); RDW 18.4 % (11.9-15.9)
[2021-09-27 08:33] LABS: INR 1.15 (0.83-1.09); PROTHROMBIN TIME (PATIENT) 13.3 SEC (9.7-13.0)
[2021-09-27 08:35] LABS: ACTIVATED PTT 28.6 SECONDS (25.2-36.5)
[2021-09-27 08:37] LABS: WHITE BLOOD COUNT 1.8 K/mm3 (4.0-10.0)
[2021-09-27 08:52] LABS: CHLORIDE 111 mmol/L (98-107); SODIUM 143 mmol/L (136-145)
[2021-09-27 08:56] LABS: ALBUMIN 2.9 g/dl (3.4-5.0); ANION GAP 6 MMOL/L (8-16); BLOOD UREA NITROGEN 20.1 mg/dL (7-18); CALCIUM 7.9 mg/dL (8.5-10.1); CO2 26 mmol/L (21-32); GLUCOSE,RANDOM 93 mg/dL (74-106); MAGNESIUM 2.8 mg/dL (1.8-2.4)
[2021-09-27 08:59] LABS: CREATININE 1.3 mg/dL (0.55-1.3); SGPT/ALT < 6 U/L (13-61)
[2021-09-27 09:00] LABS: SGOT/AST 8 U/L (15-37)
[2021-09-27 09:02] LABS: ALK PHOS 104 U/L (45-117)
[2021-09-27 10:57] LABS: ANISOCYTOSIS 1+; MACROCYTOSIS 0; PLATELET ESTIMATE DECREASED
[2021-09-27] MEDS: PANTOPRAZOLE 40 MG TABLET PO SCH (11:10)
[2021-09-27] MEDS: valACYclovir HCL 500 MG TABLET (FP) PO SCH (11:10)
[2021-09-28] MEDS: POLYETHYLENE GLYCOL (HEALTHYLAX) 3350 17 GM PACKET PO SCH ×3 (06:13→22:26)
[2021-09-28] MEDS: PANTOPRAZOLE 40 MG TABLET PO SCH (09:44)
[2021-09-28] MEDS: valACYclovir HCL 500 MG TABLET (FP) PO SCH (09:44)
[2021-09-28 09:57] LABS: HEMATOCRIT 22.8 % (35.4-49); HEMOGLOBIN 7.7 GM/dL (11.7-16.9); MCH 30.9 pg (25.7-33.7); MCHC 33.7 g/dl (32.0-35.9); MEAN CELL VOLUME 91.7 fl (80-96); MEAN PLT VOLUME 7.4 fl (7.5-11.1); PLATELET COUNT 62 10^3/uL (134-434); RBC 2.48 M/mm3 (4.00-5.60)
[2021-09-28 10:23] LABS: CHLORIDE 109 mmol/L (98-107); SODIUM 143 mmol/L (136-145)
[2021-09-28 10:26] LABS: WHITE BLOOD COUNT 1.8 K/mm3 (4.0-10.0)
[2021-09-28 10:39] LABS: ANION GAP 8 MMOL/L (8-16); BLOOD UREA NITROGEN 20.2 mg/dL (7-18); CALCIUM 8.4 mg/dL (8.5-10.1); CO2 26 mmol/L (21-32); GLUCOSE,RANDOM 108 mg/dL (74-106)
[2021-09-28 10:42] LABS: CREATININE 1.3 mg/dL (0.55-1.3); SGOT/AST 11 U/L (15-37)
[2021-09-28 10:44] LABS: ALK PHOS 111 U/L (45-117); BILIRUBIN,TOTAL 2.2 mg/dL (0.2-1); TOT PROT 5.4 g/dl (6.4-8.2)
[2021-09-28 10:54] LABS: SGPT/ALT < 6 U/L (13-61)
[2021-09-29] MEDS: POLYETHYLENE GLYCOL (HEALTHYLAX) 3350 17 GM PACKET PO SCH (06:09)
[2021-09-29] MEDS: valACYclovir HCL 500 MG TABLET (FP) PO SCH (09:38)
[2021-09-29] MEDS: PANTOPRAZOLE 40 MG TABLET PO SCH (09:38)
[2021-09-29] MEDS ORDERED: POLYETHYLENE GLYCOL (HEALTHYLAX) 3350 17 GM PACKET PO SCH (14:00)
[2021-09-30] MEDS: valACYclovir HCL 500 MG TABLET (FP) PO SCH (09:37)
[2021-09-30] MEDS: PANTOPRAZOLE 40 MG TABLET PO SCH (09:37)
[2021-09-30 12:53] LABS: HEMATOCRIT 21.9 % (35.4-49); HEMOGLOBIN 7.5 GM/dL (11.7-16.9); MCH 31.3 pg (25.7-33.7); MCHC 34.1 g/dl (32.0-35.9); MEAN CELL VOLUME 91.6 fl (80-96); MEAN PLT VOLUME 7.3 fl (7.5-11.1); RDW 17.8 % (11.9-15.9)
[2021-09-30 13:07] LABS: CALCIUM 8.3 mg/dL (8.5-10.1)
[2021-09-30 13:08] LABS: ALBUMIN 2.9 g/dl (3.4-5.0); BLOOD UREA NITROGEN 20.7 mg/dL (7-18)
[2021-09-30 13:09] LABS: PLATELET COUNT 47 10^3/uL (134-434); WHITE BLOOD COUNT 1.3 K/mm3 (4.0-10.0)
[2021-09-30 13:11] LABS: CREATININE 1.3 mg/dL (0.55-1.3)
[2021-09-30 13:12] LABS: TOT PROT 5.4 g/dl (6.4-8.2)
[2021-10-01 09:19] LABS: HEMATOCRIT 21.7 % (35.4-49); HEMOGLOBIN 7.4 GM/dL (11.7-16.9); MCH 31.3 pg (25.7-33.7); MCHC 34.1 g/dl (32.0-35.9); MEAN CELL VOLUME 91.6 fl (80-96); MEAN PLT VOLUME 8.1 fl (7.5-11.1); PLATELET COUNT 40 10^3/uL (134-434); RBC 2.37 M/mm3 (4.00-5.60); RDW 17.2 % (11.9-15.9)
[2021-10-01 09:30] LABS: WHITE BLOOD COUNT 1.3 K/mm3 (4.0-10.0)
[2021-10-01] MEDS: PANTOPRAZOLE 40 MG TABLET PO SCH (09:31)
[2021-10-01] MEDS: valACYclovir HCL 500 MG TABLET (FP) PO SCH (09:31)
[2021-10-01 09:46] LABS: CHLORIDE 109 mmol/L (98-107); SODIUM 142 mmol/L (136-145)
[2021-10-01 09:51] LABS: CALCIUM 8.5 mg/dL (8.5-10.1)
[2021-10-01 09:52] LABS: ANION GAP 4 MMOL/L (8-16); BLOOD UREA NITROGEN 23.1 mg/dL (7-18); CO2 30 mmol/L (21-32); GLUCOSE,RANDOM 96 mg/dL (74-106)
[2021-10-01 09:54] LABS: SGOT/AST 9 U/L (15-37)
[2021-10-01 09:55] LABS: BILIRUBIN,TOTAL 1.5 mg/dL (0.2-1); CREATININE 1.2 mg/dL (0.55-1.3); SGPT/ALT < 6 U/L (13-61); TOT PROT 5.4 g/dl (6.4-8.2)
[2021-10-01 09:57] LABS: ALK PHOS 132 U/L (45-117)
[2021-10-02 07:03] VITALS: BP 147/57; PULSE 82; RESP 19; TEMP 82
[2021-10-02 08:27] LABS: HEMATOCRIT 21.2 % (35.4-49); HEMOGLOBIN 7.2 GM/dL (11.7-16.9); MCH 30.9 pg (25.7-33.7); MEAN PLT VOLUME 8.3 fl (7.5-11.1); RBC 2.33 M/mm3 (4.00-5.60); RDW 17.6 % (11.9-15.9)
[2021-10-02 08:48] LABS: CHLORIDE 107 mmol/L (98-107); SODIUM 143 mmol/L (136-145)
[2021-10-02 08:55] LABS: WHITE BLOOD COUNT 1.3 K/mm3 (4.0-10.0)
[2021-10-02 08:56] LABS: PLATELET COUNT 34 10^3/uL (134-434)
[2021-10-02 08:57] LABS: ANION GAP 6 MMOL/L (8-16); BLOOD UREA NITROGEN 18.8 mg/dL (7-18); CALCIUM 8.6 mg/dL (8.5-10.1); CO2 30 mmol/L (21-32); GLUCOSE,RANDOM 95 mg/dL (74-106)
[2021-10-02 09:00] LABS: CREATININE 1.2 mg/dL (0.55-1.3); SGOT/AST 5 U/L (15-37)
[2021-10-02 09:01] LABS: TOT PROT 5.4 g/dl (6.4-8.2)
[2021-10-02 09:03] LABS: ALK PHOS 125 U/L (45-117)
[2021-10-02 09:06] LABS: SGPT/ALT < 6 U/L (13-61)
[2021-10-02] MEDS: valACYclovir HCL 500 MG TABLET (FP) PO SCH (10:31)
[2021-10-02] MEDS: PANTOPRAZOLE 40 MG TABLET PO SCH (10:31)
== END 2021-10-02 12:18 | DRG 809 ==
LOC: JER 11:40 → JERBED 14:16 → J8W 09-24 02:39
PROVIDERS: ADMIT Internal Medicine; ATTEND Internal Medicine
PROC: 30233R1 Transfusion of Nonautologous Platelets into Peripheral Vein, Percutaneous Approach (ICD-10-PCS; principal; 2021-09-25)
PROC: 30233N1 Transfusion of Nonautologous Red Blood Cells into Peripheral Vein, Percutaneous Approach (ICD-10-PCS; 2021-09-25)
DX: D61.818 Other pancytopenia (principal); C90.00 Multiple myeloma not having achieved remission; G20 Parkinson's disease; N18.9 Chronic kidney disease, unspecified; D69.6 Thrombocytopenia, unspecified; I10 Essential (primary) hypertension; K21.9 Gastro-esophageal reflux disease without esophagitis; D64.9 Anemia, unspecified
CPT/HCPCS: 36415; 36430; 71045-TC-FY; 80048; 80053; 82248; 82378; 82728; 83010; 83540; 83550; 83615; 83735; 84100; 84443; 85025; 85027; 85045; 85384; 85610; 85730; 86140; 86850; 86870; 86900; 86901; 86902; 86922; 93005; 93010; 94010; 97116-GP; 99285-25; C9803-CS; P9034; P9058; U0003; U0005

== ENCOUNTER 2021-10-21 14:23 | Inpatient (IN) | payer OTHER ==
[2021-10-21 15:04] VITALS: BMI 22.2
[2021-10-21 16:02] LABS: BASO % 0.2 % (0-2.0); EOS % 0.4 % (0-4.5); HEMATOCRIT 18.2 % (35.4-49); LYMPH % 21.7 % (8-40); MCHC 33.5 g/dl (32.0-35.9); MEAN CELL VOLUME 92.6 fl (80-96); MEAN PLT VOLUME 8.7 fl (7.5-11.1); MONO % 10.3 % (3.8-10.2); NEUT % 67.4 % (42.8-82.8); RBC 1.97 M/mm3 (4.00-5.60)
[2021-10-21 16:18] LABS: HEMOGLOBIN 6.1 GM/dL (11.7-16.9); PLATELET COUNT 30 10^3/uL (134-434); WHITE BLOOD COUNT 1.4 K/mm3 (4.0-10.0)
[2021-10-21 16:19] LABS: ALBUMIN 3.2 g/dl (3.4-5.0); BLOOD UREA NITROGEN 29.7 mg/dL (7-18); CALCIUM 8.4 mg/dL (8.5-10.1)
[2021-10-21 16:24] LABS: BILIRUBIN,TOTAL 1.1 mg/dL (0.2-1); TOT PROT 5.5 g/dl (6.4-8.2)
[2021-10-21 16:26] LABS: INR 1.13 (0.83-1.09)
[2021-10-21 16:29] LABS: ACTIVATED PTT 27.1 SECONDS (25.2-36.5)
[2021-10-21 17:21] LABS: ANISOCYTOSIS 2+; MACROCYTOSIS 2+; OVALOCYTE 1+
[2021-10-21 17:30] LABS: PLATELET ESTIMATE DECREASED
[2021-10-21 17:31] LABS: INR 1.15 (0.83-1.09); PROTHROMBIN TIME (PATIENT) 13.2 SEC (9.7-13.0)
[2021-10-22] MEDS: PANTOPRAZOLE 40 MG TABLET PO SCH (10:34)
[2021-10-22] MEDS: valACYclovir HCL 500 MG TABLET (FP) PO SCH (10:34)
[2021-10-22] MEDS ORDERED: valACYclovir HCL 500 MG TABLET (FP) ONE (10:35)
[2021-10-22] MEDS ORDERED: PANTOPRAZOLE 40 MG TABLET PO ONE (10:35)
[2021-10-22 15:00] LABS: HEMATOCRIT 15.9 % (35.4-49); MCH 30.5 pg (25.7-33.7); MCHC 32.9 g/dl (32.0-35.9); MEAN CELL VOLUME 92.6 fl (80-96); MEAN PLT VOLUME 8.1 fl (7.5-11.1); RBC 1.71 M/mm3 (4.00-5.60); RDW 18.7 % (11.9-15.9)
[2021-10-22 15:25] LABS: CALCIUM 8.2 mg/dL (8.5-10.1)
[2021-10-22 15:26] LABS: ALBUMIN 2.9 g/dl (3.4-5.0); BLOOD UREA NITROGEN 27.9 mg/dL (7-18); MAGNESIUM 1.8 mg/dL (1.8-2.4)
[2021-10-22 15:29] LABS: CREATININE 1.6 mg/dL (0.55-1.3); PHOSPHOROUS 3.4 mg/dL (2.5-4.9)
[2021-10-22 15:30] LABS: ANISOCYTOSIS 1+; BILIRUBIN,TOTAL 1.3 mg/dL (0.2-1); MACROCYTOSIS 0; PLATELET ESTIMATE DECREASED
[2021-10-22 15:31] LABS: TOT PROT 5.2 g/dl (6.4-8.2)
[2021-10-22 15:33] LABS: HEMOGLOBIN 5.2 GM/dL (11.7-16.9); PLATELET COUNT 23 10^3/uL (134-434); WHITE BLOOD COUNT 1.1 K/mm3 (4.0-10.0)
[2021-10-23 08:49] LABS: HEMATOCRIT 20.1 % (35.4-49); MCH 29.9 pg (25.7-33.7); MCHC 33.4 g/dl (32.0-35.9); MEAN CELL VOLUME 89.4 fl (80-96); MEAN PLT VOLUME 8.8 fl (7.5-11.1); RBC 2.25 M/mm3 (4.00-5.60); RDW 19.4 % (11.9-15.9)
[2021-10-23 09:03] LABS: WHITE BLOOD COUNT 1.1 K/mm3 (4.0-10.0)
[2021-10-23 09:04] LABS: HEMOGLOBIN 6.7 GM/dL (11.7-16.9); PLATELET COUNT 27 10^3/uL (134-434)
[2021-10-23 09:25] LABS: CALCIUM 8.5 mg/dL (8.5-10.1)
[2021-10-23 09:26] LABS: BLOOD UREA NITROGEN 24.6 mg/dL (7-18)
[2021-10-23 09:29] LABS: CREATININE 1.5 mg/dL (0.55-1.3)
[2021-10-23] MEDS: valACYclovir HCL 500 MG TABLET (FP) PO SCH (10:05)
[2021-10-23] MEDS: PANTOPRAZOLE 40 MG TABLET PO SCH (10:05)
[2021-10-23] MEDS: POTASSIUM CHLORIDE TABS 20 MEQ TABLET.ER (FP) PO SCH (10:05)
[2021-10-23 11:54] LABS: ANISOCYTOSIS 1+; MACROCYTOSIS 0; OVALOCYTE 1+; PLATELET ESTIMATE DECREASED; TEAR DROP CELLS 1+
[2021-10-23 19:03] LABS: BASO % 1.8 % (0-2.0); EOS % 0.7 % (0-4.5); HEMATOCRIT 24.2 % (35.4-49); HEMOGLOBIN 8.1 GM/dL (11.7-16.9); LYMPH % 18.9 % (8-40); MCH 29.6 pg (25.7-33.7); MCHC 33.4 g/dl (32.0-35.9); MEAN CELL VOLUME 88.6 fl (80-96); MEAN PLT VOLUME 8.9 fl (7.5-11.1); NEUT % 67.6 % (42.8-82.8); RBC 2.73 M/mm3 (4.00-5.60); RDW 19.4 % (11.9-15.9)
[2021-10-23 19:07] LABS: WHITE BLOOD COUNT 1.8 K/mm3 (4.0-10.0)
[2021-10-23 19:08] LABS: PLATELET COUNT 28 10^3/uL (134-434)
[2021-10-23 19:31] LABS: ANISOCYTOSIS 3+; MACROCYTOSIS 0; TEAR DROP CELLS 1+
[2021-10-24 04:40] VITALS: RESP 18
[2021-10-24] MEDS: POTASSIUM CHLORIDE TABS 20 MEQ TABLET.ER (FP) PO SCH (09:43)
[2021-10-24] MEDS: valACYclovir HCL 500 MG TABLET (FP) PO SCH (09:43)
[2021-10-24] MEDS: PANTOPRAZOLE 40 MG TABLET PO SCH (09:43)
[2021-10-24 12:26] LABS: HEMATOCRIT 21.8 % (35.4-49); HEMOGLOBIN 7.4 GM/dL (11.7-16.9); MCH 29.9 pg (25.7-33.7); MCHC 33.9 g/dl (32.0-35.9); MEAN CELL VOLUME 88.1 fl (80-96); MEAN PLT VOLUME 9.2 fl (7.5-11.1); RBC 2.48 M/mm3 (4.00-5.60); RDW 19.1 % (11.9-15.9)
[2021-10-24 12:36] LABS: PLATELET COUNT 24 10^3/uL (134-434); WHITE BLOOD COUNT 1.6 K/mm3 (4.0-10.0)
[2021-10-24 12:43] LABS: CHLORIDE 111 mmol/L (98-107); SODIUM 142 mmol/L (136-145)
[2021-10-24 12:47] LABS: CALCIUM 8.3 mg/dL (8.5-10.1)
[2021-10-24 12:48] LABS: ALBUMIN 2.9 g/dl (3.4-5.0); ANION GAP 5 MMOL/L (8-16); BLOOD UREA NITROGEN 27.7 mg/dL (7-18); CO2 26 mmol/L (21-32); GLUCOSE,RANDOM 97 mg/dL (74-106)
[2021-10-24 12:51] LABS: CREATININE 1.3 mg/dL (0.55-1.3); SGOT/AST 8 U/L (15-37)
[2021-10-24 12:52] LABS: BILIRUBIN,TOTAL 1.1 mg/dL (0.2-1); TOT PROT 4.9 g/dl (6.4-8.2)
[2021-10-24 12:54] LABS: ALK PHOS 104 U/L (45-117); SGPT/ALT < 6 U/L (13-61)
[2021-10-24 13:42] LABS: ANISOCYTOSIS 1+; MACROCYTOSIS 1+
[2021-10-24 14:38] VITALS: BP 129/50; PULSE 79; TEMP 98
[2021-10-24] MEDS ORDERED: SODIUM ZIRCONIUM CYCLOSILICATE (LOKELMA) 5 GM PACKET PO SCH (15:00)
== END 2021-10-24 20:00 | DRG 841 ==
LOC: JER 14:23 → JERBED 16:22 → J7W 10-22 11:00
PROVIDERS: ADMIT Internal Medicine; ATTEND Internal Medicine
DX: C90.00 Multiple myeloma not having achieved remission (principal); D61.818 Other pancytopenia; N17.9 Acute kidney failure, unspecified; D63.0 Anemia in neoplastic disease; G20 Parkinson's disease; N18.30 Chronic kidney disease, stage 3 unspecified; K21.9 Gastro-esophageal reflux disease without esophagitis
CPT/HCPCS: 36415; 36430; 71045-TC-FY; 80048; 80053; 82607; 82728; 82746; 83540; 83550; 83615; 83735; 84100; 84443; 85025; 85045; 85610; 85730; 86850; 86870; 86900; 86901; 86902; 86922; 93005; 93010; 99285-25; C9803-CS; P9058; U0003; U0005

== ENCOUNTER 2021-11-05 21:50 | Inpatient (IN) | payer OTHER ==
[2021-11-05 22:04] VITALS: BMI 21.9
[2021-11-05 22:56] LABS: BASO % 0.3 % (0-2.0); EOS % 47.3 % (0-4.5); HEMATOCRIT 18.7 % (35.4-49); LYMPH % 33.1 % (8-40); MCH 30.3 pg (25.7-33.7); MCHC 34.1 g/dl (32.0-35.9); MEAN CELL VOLUME 88.9 fl (80-96); MEAN PLT VOLUME 9.4 fl (7.5-11.1); NEUT % 12.3 % (42.8-82.8); RDW 19.7 % (11.9-15.9)
[2021-11-05 23:00] LABS: HEMOGLOBIN 6.4 GM/dL (11.7-16.9); WHITE BLOOD COUNT 1.2 K/mm3 (4.0-10.0)
[2021-11-05 23:04] LABS: INR 1.15 (0.83-1.09); PROTHROMBIN TIME (PATIENT) 13.2 SEC (9.7-13.0)
[2021-11-05 23:06] LABS: ACTIVATED PTT 28.5 SECONDS (25.2-36.5)
[2021-11-05 23:14] LABS: CHLORIDE 112 mmol/L (98-107); SODIUM 141 mmol/L (136-145)
[2021-11-05 23:16] LABS: ALBUMIN 2.8 g/dl (3.4-5.0)
[2021-11-05 23:17] LABS: ANION GAP 7 MMOL/L (8-16); BLOOD UREA NITROGEN 26.9 mg/dL (7-18); CO2 22 mmol/L (21-32); GLUCOSE,RANDOM 97 mg/dL (74-106)
[2021-11-05 23:20] LABS: CREATININE 1.5 mg/dL (0.55-1.3); SGOT/AST 6 U/L (15-37)
[2021-11-05 23:21] LABS: BILIRUBIN,TOTAL 0.9 mg/dL (0.2-1)
[2021-11-05 23:22] LABS: ALK PHOS 106 U/L (45-117)
[2021-11-05 23:24] LABS: N-TERMINAL BNP 2526.6 pg/ml (5-450)
[2021-11-05 23:25] LABS: SGPT/ALT < 6 U/L (13-61)
[2021-11-05 23:43] LABS: ANISOCYTOSIS 3+; MACROCYTOSIS 0; OVALOCYTE 1+; TARGET CELLS 1+; TEAR DROP CELLS 1+
[2021-11-05 23:45] LABS: PLATELET COUNT 25 10^3/uL (134-434)
[2021-11-06] MEDS ORDERED: ALBUTEROL SO4 HFA INHALER IH PRN (00:53)
[2021-11-06] MEDS ORDERED: PANTOPRAZOLE 40 MG TABLET PO ONE (07:36)
[2021-11-06] MEDS ORDERED: POTASSIUM CHLORIDE TABS 20 MEQ TABLET.ER (FP) PO ONE (07:36)
[2021-11-06] MEDS ORDERED: CARBIDOPA/LEVODOPA 25/100 TABLET (FP) ONE (07:36)
[2021-11-06] MEDS ORDERED: ALBUTEROL SO4 HFA INHALER IH ONE (09:27)
[2021-11-06] MEDS: PANTOPRAZOLE 40 MG TABLET PO SCH (09:41)
[2021-11-06] MEDS: POTASSIUM CHLORIDE TABS 20 MEQ TABLET.ER (FP) PO SCH (10:30)
[2021-11-07] MEDS: PANTOPRAZOLE 40 MG TABLET PO SCH (09:06)
[2021-11-07] MEDS: POTASSIUM CHLORIDE TABS 20 MEQ TABLET.ER (FP) PO SCH (09:06)
[2021-11-07 14:16] LABS: HEMOGLOBIN 9.2 GM/dL (11.7-16.9); MCH 29.5 pg (25.7-33.7); MCHC 34.1 g/dl (32.0-35.9); MEAN CELL VOLUME 86.7 fl (80-96); MEAN PLT VOLUME 7.8 fl (7.5-11.1); RBC 3.12 M/mm3 (4.00-5.60); RDW 19.9 % (11.9-15.9)
[2021-11-07 14:23] LABS: BLOOD UREA NITROGEN 22.4 mg/dL (7-18); CALCIUM 8.3 mg/dL (8.5-10.1)
[2021-11-07 14:24] LABS: ALBUMIN 2.8 g/dl (3.4-5.0); PLATELET COUNT 31 10^3/uL (134-434)
[2021-11-07 14:25] LABS: WHITE BLOOD COUNT 1.8 K/mm3 (4.0-10.0)
[2021-11-07 14:26] LABS: CREATININE 1.1 mg/dL (0.55-1.3); PHOSPHOROUS 2.6 mg/dL (2.5-4.9)
[2021-11-07 14:28] LABS: BILIRUBIN,TOTAL 1.3 mg/dL (0.2-1); TOT PROT 5.2 g/dl (6.4-8.2)
[2021-11-07 15:29] LABS: ANISOCYTOSIS 1+; MACROCYTOSIS 1+
[2021-11-08] MEDS: PANTOPRAZOLE 40 MG TABLET PO SCH (09:23)
[2021-11-08] MEDS: POTASSIUM CHLORIDE TABS 20 MEQ TABLET.ER (FP) PO SCH (09:23)
[2021-11-08 13:09] LABS: HEMATOCRIT 23.3 % (35.4-49); MCH 29.7 pg (25.7-33.7); MCHC 34.2 g/dl (32.0-35.9); MEAN CELL VOLUME 86.7 fl (80-96); MEAN PLT VOLUME 9.1 fl (7.5-11.1); RBC 2.68 M/mm3 (4.00-5.60); RDW 20.1 % (11.9-15.9)
[2021-11-08] MEDS: valACYclovir HCL 500 MG TABLET (FP) PO SCH ×2 (13:19→21:00)
[2021-11-08 13:33] LABS: CHLORIDE 110 mmol/L (98-107); SODIUM 142 mmol/L (136-145)
[2021-11-08 13:36] LABS: CALCIUM 8.4 mg/dL (8.5-10.1)
[2021-11-08 13:37] LABS: ALBUMIN 2.6 g/dl (3.4-5.0); ANION GAP 3 MMOL/L (8-16); BLOOD UREA NITROGEN 24.1 mg/dL (7-18); CO2 29 mmol/L (21-32); GLUCOSE,RANDOM 105 mg/dL (74-106); MAGNESIUM 1.9 mg/dL (1.8-2.4)
[2021-11-08 13:40] LABS: CREATININE 1.1 mg/dL (0.55-1.3); PHOSPHOROUS 2.8 mg/dL (2.5-4.9); SGOT/AST 5 U/L (15-37)
[2021-11-08 13:42] LABS: ALK PHOS 103 U/L (45-117)
[2021-11-08 13:43] LABS: TOT PROT 4.7 g/dl (6.4-8.2)
[2021-11-08 13:44] LABS: BILIRUBIN,TOTAL 0.7 mg/dL (0.2-1); WHITE BLOOD COUNT 0.9 K/mm3 (4.0-10.0)
[2021-11-08 13:45] LABS: PLATELET COUNT 20 10^3/uL (134-434)
[2021-11-08 13:50] LABS: SGPT/ALT < 6 U/L (13-61)
[2021-11-08 14:30] LABS: ANISOCYTOSIS 1+; MACROCYTOSIS 1+
[2021-11-09 09:37] LABS: MCH 29.4 pg (25.7-33.7); MCHC 33.5 g/dl (32.0-35.9); MEAN CELL VOLUME 87.9 fl (80-96); RBC 2.74 M/mm3 (4.00-5.60); RDW 19.8 % (11.9-15.9)
[2021-11-09 09:53] LABS: PLATELET COUNT 19 10^3/uL (134-434); WHITE BLOOD COUNT 0.8 K/mm3 (4.0-10.0)
[2021-11-09 09:54] LABS: CHLORIDE 109 mmol/L (98-107); SODIUM 142 mmol/L (136-145)
[2021-11-09 10:00] LABS: CALCIUM 8.5 mg/dL (8.5-10.1)
[2021-11-09 10:01] LABS: ALBUMIN 2.6 g/dl (3.4-5.0); ANION GAP 3 MMOL/L (8-16); BLOOD UREA NITROGEN 28.2 mg/dL (7-18); CO2 31 mmol/L (21-32); GLUCOSE,RANDOM 93 mg/dL (74-106)
[2021-11-09 10:04] LABS: CREATININE 1.1 mg/dL (0.55-1.3); PHOSPHOROUS 2.8 mg/dL (2.5-4.9); SGOT/AST 3 U/L (15-37)
[2021-11-09 10:05] LABS: BILIRUBIN,TOTAL 0.8 mg/dL (0.2-1); TOT PROT 4.9 g/dl (6.4-8.2)
[2021-11-09 10:06] LABS: ALK PHOS 99 U/L (45-117)
[2021-11-09 10:22] LABS: SGPT/ALT < 6 U/L (13-61)
[2021-11-09 11:20] LABS: ANISOCYTOSIS 1+; MACROCYTOSIS 0; PLATELET ESTIMATE DECREASED; ROULEAU 1+
[2021-11-09] MEDS: valACYclovir HCL 500 MG TABLET (FP) PO SCH ×2 (11:24→21:58)
[2021-11-09] MEDS: POTASSIUM CHLORIDE TABS 20 MEQ TABLET.ER (FP) PO SCH (11:24)
[2021-11-09] MEDS: PANTOPRAZOLE 40 MG TABLET PO SCH (11:26)
[2021-11-09] MEDS: AMOXICILLIN 500 MG CAPSULE (FP) PO SCH (21:58)
[2021-11-09] MEDS: FLUCONAZOLE 100 MG TABLET (UD) PO SCH (21:58)
[2021-11-10] MEDS: AMOXICILLIN 500 MG CAPSULE (FP) PO SCH ×3 (06:34→22:01)
[2021-11-10] MEDS: POTASSIUM CHLORIDE TABS 20 MEQ TABLET.ER (FP) PO SCH (10:09)
[2021-11-10] MEDS: FLUCONAZOLE 100 MG TABLET (UD) PO SCH (10:09)
[2021-11-10] MEDS: valACYclovir HCL 500 MG TABLET (FP) PO SCH ×2 (10:09→22:01)
[2021-11-10] MEDS: PANTOPRAZOLE 40 MG TABLET PO SCH (10:09)
[2021-11-10 10:28] LABS: HEMATOCRIT 28.1 % (35.4-49); HEMOGLOBIN 9.4 GM/dL (11.7-16.9); MCH 29.6 pg (25.7-33.7); MCHC 33.5 g/dl (32.0-35.9); MEAN CELL VOLUME 88.4 fl (80-96); RBC 3.17 M/mm3 (4.00-5.60); RDW 19.5 % (11.9-15.9)
[2021-11-10 10:45] LABS: PLATELET COUNT 19 10^3/uL (134-434); WHITE BLOOD COUNT 0.9 K/mm3 (4.0-10.0)
[2021-11-10 10:50] LABS: BLOOD UREA NITROGEN 24.8 mg/dL (7-18); CALCIUM 9.1 mg/dL (8.5-10.1)
[2021-11-10 10:53] LABS: CREATININE 1.4 mg/dL (0.55-1.3)
[2021-11-10 10:54] LABS: BILIRUBIN,TOTAL 0.7 mg/dL (0.2-1); TOT PROT 5.5 g/dl (6.4-8.2)
[2021-11-10 11:13] LABS: ANISOCYTOSIS 2+; MACROCYTOSIS 0; PLATELET ESTIMATE DECREASED
[2021-11-10] MEDS ORDERED: SODIUM CHLORIDE 1,000 ML IV SCH (16:30)
[2021-11-11] MEDS: AMOXICILLIN 500 MG CAPSULE (FP) PO SCH ×2 (06:52→14:28)
[2021-11-11] MEDS: PANTOPRAZOLE 40 MG TABLET PO SCH (09:56)
[2021-11-11] MEDS: POTASSIUM CHLORIDE TABS 20 MEQ TABLET.ER (FP) PO SCH (09:56)
[2021-11-11] MEDS: valACYclovir HCL 500 MG TABLET (FP) PO SCH (09:56)
[2021-11-11] MEDS: FLUCONAZOLE 100 MG TABLET (UD) PO SCH (09:57)
[2021-11-11 10:11] VITALS: RESP 20
[2021-11-11 14:40] LABS: HEMATOCRIT 26.5 % (35.4-49); HEMOGLOBIN 8.8 GM/dL (11.7-16.9); MCH 29.3 pg (25.7-33.7); MCHC 33.4 g/dl (32.0-35.9); MEAN CELL VOLUME 87.6 fl (80-96); MEAN PLT VOLUME 9.2 fl (7.5-11.1); RBC 3.02 M/mm3 (4.00-5.60); RDW 19.6 % (11.9-15.9)
[2021-11-11 14:44] LABS: PLATELET COUNT 20 10^3/uL (134-434)
[2021-11-11 15:05] LABS: CALCIUM 8.6 mg/dL (8.5-10.1)
[2021-11-11 15:06] LABS: BLOOD UREA NITROGEN 23.9 mg/dL (7-18)
[2021-11-11 15:09] LABS: CREATININE 1.1 mg/dL (0.55-1.3)
[2021-11-11 15:33] VITALS: BP 134/73; PULSE 87; TEMP 98.5
== END 2021-11-11 17:37 | DRG 841 ==
LOC: JER 21:50 → JERBED 22:06 → J7W 11-07 00:41 → J8W 11-08 23:19
PROVIDERS: ADMIT Internal Medicine; ATTEND Internal Medicine
PROC: 30233N1 Transfusion of Nonautologous Red Blood Cells into Peripheral Vein, Percutaneous Approach (ICD-10-PCS; principal; 2021-11-05)
DX: C90.00 Multiple myeloma not having achieved remission (principal); D61.818 Other pancytopenia; G20 Parkinson's disease; J44.9 Chronic obstructive pulmonary disease, unspecified; Z86.711 Personal history of pulmonary embolism; Z79.01 Long term (current) use of anticoagulants; I12.9 Hypertensive chronic kidney disease with stage 1 through stage 4 chronic kidney disease, or unspecified chronic kidney disease; N18.30 Chronic kidney disease, stage 3 unspecified; F02.80 Dementia in other diseases classified elsewhere, unspecified severity, without behavioral disturbance, psychotic disturbance, mood disturbance, and anxiety; D64.9 Anemia, unspecified; D63.0 Anemia in neoplastic disease
CPT/HCPCS: 36415; 36430; 71045-TC-FY; 80048; 80053; 82272; 83735; 83880; 84100; 84484; 85025; 85027; 85610; 85730; 86850; 86870; 86900; 86901; 86902; 86922; 93005; 93010; 99285-25; C9803-CS; P9058; U0003; U0005